=== PATIENT | male | born 1970 | race Two or more races ===

== ENCOUNTER 2024-09-11 20:06 | Inpatient (IN) | payer MEDICAID, SELFPAY ==
[2024-09-11] VITALS (7 sets, daily range): BP systolic 101–142; BP diastolic 73–79; PULSE 87–130; RESP 15–25; TEMP 37.1–39.6; O2SAT 92–96; BMI 38.6
--- NOTE | 2024-09-11 20:10 | XR_ITS ---
Examination: AP chest single view Technique: AP portable semiupright chest single view Exam date and time: September 11, 2024 1007 hrs. Indications: Sepsis protocol Findings: Normal heart size The lungs are clear. The osseous structures are intact Impression: No active disease
--- NOTE | 2024-09-11 20:13 | PD.EDRME ---
Rapid Medical Screening Exam RME Arrival date/time: 09/11/24 20:06 CC: Tachypneic tachycardic warm to touch patient's had a UTI for the last 4 to 5 days with hematuria. Tachypnea tachycardia reported in the vital signs by EMS. Review of the literature show patient started on Levaquin. Patient is awake alert oriented
[2024-09-11] MEDS: SODIUM CHLORIDE 0.9% 1000 ML 1,000 ML 999 ML IV (20:40)
[2024-09-11 21:10] LABS: Lactate (Lactic Acid) 1.9 mMol/L (0.4-2.0)
[2024-09-11] MEDS: ACETAMINOPHEN 500 MG TABLET 1000 MG PO (21:11)
[2024-09-11 21:29] LABS: Collection Type, Urine Clean Catch
[2024-09-11 21:37] LABS: Basophils # (Auto) 0.1 Thou/mm3 (0.0-0.2); Basophils % (Auto) 0 % (0-2.5); Eosinophils # (Auto) 0.1 Thou/mm3 (0.0-0.5); Eosinophils % (Auto) 1 % (0-10); Hematocrit 34.7 % (41.0-53.0); Hemoglobin 11.8 g/dL (13.5-16.0); Immature Granulocytes % (Auto) 1 % (0-0); Immature Granulocytes Auto 0.15 Thou/mm3 (0.00-0.00); Lymphocytes # (Auto) 1.8 Thou/mm3 (1.0-4.8); Lymphocytes % (Auto) 14 % (10-50); Mean Corpuscular Hemoglobin 30.2 pg (25.0-35.0); Mean Corpuscular Volume 89 fL (80-100); Monocytes # (Auto) 1.2 Thou/mm3 (0.0-0.8); Monocytes % (Auto) 9 % (0-12); Neutrophils # (Auto) 10.1 Thou/mm3 (1.8-7.7); Neutrophils % (Auto) 75 % (37-80); Nucleated Red Blood Cell % 0 /100 WBC (0); Platelet Count 247 Thou/mm3 (140-440); RDW Standard Deviation 45.2 fL (35.1-43.9); Red Blood Count 3.91 Miln/mm3 (4.50-5.90); White Blood Count 13.5 Thou/mm3 (3.8-10.6)
[2024-09-11 21:45] LABS: Bacteria,Urine Rare; Bilirubin,Urine Negative (Negative); Blood,Urine 1+ (Negative); Budding Yeast,Urine Present; Clarity,Urine Turbid (Clear/Hazy); Color,Urine Lt-Yellow (Lt Yel-Yel); Glucose, Urine Negative (Negative); Ketones,Urine Negative (Negative); Leukocyte Esterase,Urine Positive (Negative); Nitrite,Urine Negative (Negative); Protein,Urine Trace (Neg - Trace); RBC,Urine 1 /hpf (0-3); Specific Gravity,Urine 1.011 (1.001-1.035); Squamous Epithelial Cell,Urine 1 /hpf (0-5); Urobilinogen,Urine Negative mg/dL (0.0-1.0); WBC,Urine 123 /hpf (0-5)
[2024-09-11 21:53] LABS: INR 1.1 (0.9-1.3); Partial Thromboplastin Time 29.7 Seconds (22.0-36.0); Prothrombin Time 11.9 Seconds (9.0-12.2)
[2024-09-11 22:05] LABS: B-Type Natriuretic Peptide 94 pg/mL (0-100)
--- NOTE | 2024-09-11 22:05 | EDNOTE_ITS ---
ED General RME/HPI General Chief complaint: Fever Stated complaint: FEVER Time Seen by Provider: 09/11/24 21:56 Arrival date/time: 09/11/24 20:06 RME / HPI RME / HPI narrative: Chief complaint: 09/11/24 20:06 CC: Tachypneic tachycardic warm to touch patient's had a UTI for the last 4 to 5 days with hematuria, was started on Levaquin. Tachypnea tachycardia reported on vitals by EMS. HPI: Patient is a 54 year old male with past medical history of HFpEF (60-65% 06/2023), primary hypertension, type 2 diabetes, and chronic neuropathy who was brought to the ED from [facility] with recurrent fever spikes and chills. Patient complains of bodyaches, fevers and chills for the last 24 hours. He also has mild dysuria, and urinates in a adult diaper at baseline. Patient does not have a Roque catheter present. Allergies: NKFDA Social history: Tobacco?Use:?Denies ETOH?Use:?Denies Drug?Note:?Denies Social?History?Note:?Lives?[facility] Related Data Home Medications ?Medication ?Instructions ?Recorded ?Confirmed acetaminophen 650 mg tablet 650 mg PO Q6H PRN Pain (Scale 09/04/23 01/31/24 Score 1-3) bisacodyl 10 mg rectal suppository 10 mg AZ Q72H PRN Constipation 09/04/23 01/31/24 (Dulcolax (bisacodyl)) magnesium oxide 400 mg (241.3 mg 400 mg PO BID 09/04/23 01/31/24 magnesium) tablet (MagOx) potassium chloride 10 mEq 10 meq PO QDAY 09/04/23 01/31/24 tablet,extended release docusate sodium 100 mg capsule 100 mg PO BID 10/11/23 01/31/24 lactulose 10 gram/15 mL oral 30 ml PO BID 10/11/23 01/31/24 solution (Enulose) magnesium hydroxide 400 mg/5 mL 30 ml PO Q72H PRN Constipation 10/11/23 01/31/24 oral suspension (Milk of Magnesia) methocarbamol 500 mg tablet 500 mg PO BID 10/11/23 01/31/24 ondansetron HCl 4 mg tablet 4 mg PO Q12H PRN Nausea And 10/11/23 01/31/24 Vomiting pantoprazole 40 mg tablet,delayed 40 mg PO QDAY 10/11/23 01/31/24 release pregabalin 75 mg capsule 75 mg PO TID 10/11/23 01/31/24 amlodipine 10 mg tablet 10 mg PO QDAY 01/31/24 01/31/24 finasteride 5 mg tablet 5 mg PO QDAY 01/31/24 01/31/24 Previous Rx's ?Medication ?Instructions ?Recorded tamsulosin 0.4 mg capsule (Flomax) 0.8 mg (2 x 0.4 mg) PO QDAY 30 10/14/23 days #0 caps Allergies Allergy/AdvReac Type Severity Reaction Status Date / Time No Known Allergies Allergy Verified 01/31/24 11:43 Review of Systems Review of Systems Narrative Review of Systems: GENERAL: fevers/chills , no diaphoresis. HEENT: Denies headache or visual/hearing changes. Denies nasal discharge. NEURO: Denies unusual weakness or difficulty speaking. CARDIO: Denies chest pain or palpitations. PULM: Denies SOB, coughing, or wheezing. GI: Denies abdominal pain, N/V/C/D. Reports having BMs URO: Denies burning/itching/pain/urinary changes. ENGINE INSTALLER: Denies menstrual changes, hot flashes. MSK/EXT/SKIN: Denies joint/skeletal/muscle pain, issues/changes in upper or lower extremities, itchiness, or superficial pain. PSYCH: Cooperative, pleasant mood & affect. The rest of the review of systems is otherwise negative. ED Exam Narrative Physical exam: Constitutional Alert, oriented x3 and comfortable. Obese HEENT Vision grossly intact. Patent nares. Trachea midline. Respiratory Chest normal on inspection and clear to auscultation bilaterally. Cardiovascular S1 and S2 audible, RRR. No murmurs or carotid bruit. No gross JVD. Abdominal Soft and non tender to palpation in all quadrants. BS + Genitourinary No bladder tenderness, no flank pain. Normal to palpation. Musculoskeletal Extremities tone within normal limits. No LE edema. No sacral ulcers. Neurological CN II - XII grossly intact. Extremity motor and sensation grossly intact. Skin Warm, dry and intact. No apparent lesions. Psychiatric Patient has a good affect, is cooperative. Course Quality Measures none Orders Category Date Time Status Admit to Inpatient Status Routine Admission 09/11/24 22:31 Active Patient Condition Routine Admission 09/11/24 22:31 Ordered Activity as Tolerated Routine Care 09/11/24 22:31 Ordered Bedside Blood Glucose ACHS Care 09/11/24 22:35 Active Supply And Distribution Manager STAT Care 09/11/24 20:11 Active Continuous Pulse Oximetry STAT Care 09/11/24 20:11 Completed EKG (ED ONLY) *Do not use* NOW Care 09/11/24 20:11 Completed In and Out Catheter X1PRN Care 09/11/24 20:11 Active Insert IV NOW Care 09/11/24 20:11 Active NPO STAT Care 09/11/24 20:11 Active Notify provider NEEDED Care 09/11/24 22:31 Active Strict Intake and Output Routine Care 09/11/24 20:11 Ordered Diet Carbohydrate Consistent Diet 09/11/24 Breakfast Active EKG (ED Only) Stat Exams 09/11/24 20:11 Ordered XR chest 1V SEPSIS PROTOCOL Stat Exams 09/11/24 20:10 Completed B-Type Natriuretic Peptide Stat Lab 09/11/24 20:40 Completed Basic Metabolic Panel AM DRAW Lab 09/12/24 05:00 Ordered Basic Metabolic Panel AM DRAW Lab 09/13/24 05:00 Ordered Basic Metabolic Panel AM DRAW Lab 09/14/24 05:00 Ordered Blood Culture (Lab) Stat Lab 09/11/24 20:30 Received CBC AM DRAW Lab 09/12/24 05:00 Ordered CBC AM DRAW Lab 09/13/24 05:00 Ordered CBC AM DRAW Lab 09/14/24 05:00 Ordered CBC Stat Lab 09/11/24 20:40 Completed Comprehensive Metabolic Panel Stat Lab 09/11/24 20:40 Results Drug Screen,Urine Stat Lab 09/11/24 22:03 Ordered LDH (Lactate Dehydrogenase) Stat Lab 09/11/24 20:40 Results Lactate (Lactic Acid) Stat Lab 09/11/24 20:40 Completed Lipase Stat Lab 09/11/24 20:40 Results MG [Magnesium] AM DRAW Lab 09/12/24 05:00 Ordered Magnesium Stat Lab 09/11/24 20:40 Results Partial Thromboplastin Time Stat Lab 09/11/24 20:40 Completed Phosphorous Stat Lab 09/11/24 20:40 Results Procalcitonin Stat Lab 09/11/24 20:40 Results Prothrombin Time with INR Stat Lab 09/11/24 20:40 Completed Troponin I Stat Lab 09/11/24 20:40 Results Urinalysis Stat Lab 09/11/24 21:13 Completed Urine Culture Stat Lab 09/11/24 20:11 Ordered Acetaminophen Tab [Tylenol ES Tab] Med 09/11/24 21:05 Discontinued 1,000 mg PO X1 ONE Acetaminophen Tab [Tylenol Tab] Med 09/11/24 22:31 Active 650 mg PO Q6H PRN Dextrose 50% Syr [D50w Syringe Abboject] Med 09/11/24 22:35 Active 25 ml IV Q15MIN PRN Dextrose 50% Syr [D50w Syringe Abboject] Med 09/11/24 22:35 Active 50 ml IV Q15MIN PRN Glucagon Inj Med 09/11/24 22:35 Active 1 mg IM Q15MIN PRN Heparin Inj Med 09/12/24 06:00 Ordered 5,000 unit SC Q8HR INSULIN LISPRO (AdmeLOG) [HumaLOG] Med 09/12/24 07:30 Ordered See Protocol SC AC Magnesium Sulfate 2 GM Ivpb [Magnesium Sulfate Ivpb] Med 09/11/24 22:24 Active 2 gm in 50 ml IV X1 Sodium Chloride 0.9% 1000 ml [Ns] 1,000 ml Med 09/11/24 22:45 Ordered IV 125 mls/hr Sodium Chloride 0.9% 1000 ml [Ns] 1,000 ml Med 09/11/24 20:13 Discontinued IV 999 mls/hr cefTRIAXone/D5w 1gm IV premix [Rocephin/D5w 1gm IV Med 09/12/24 09:00 Ordered premix] 50 ml IV QDAY cefTRIAXone/D5w 1gm IV premix [Rocephin/D5w 1gm IV Med 09/11/24 22:19 Active premix] 50 ml IV X1 Code Status Routine Oth 09/11/24 22:31 Ordered Oxygen Delivery NOW RT 09/11/24 20:11 Active Vital Signs Vital signs: Vital Signs Temperature 98.8 F 09/11/24 20:12 Pulse Rate 87 09/11/24 20:12 Respiratory Rate 19 09/11/24 20:12 Blood Pressure 142/79 H 09/11/24 20:12 Pulse Oximetry (%) 95 09/11/24 20:12 Oxygen Delivery Method Room Air 09/11/24 20:12 [facility] Patient data External records reviewed:: [facility] previous records Clinical information provided by:: patient and family Social determinants that could affect healthcare access:: none Patient has the following chronic illnesses:: HFpEF (60-65% 06/2023), primary hypertension, type 2 diabetes, and chronic neuropathy How is presenting disease/condition affected by chronic disease/condition?: e xacerbated by Evaluation data The following diagnostics were reviewed and interpreted by me:: lab results, radiology exam(s) and EKG tracing(s) Lab and/or radiology exams considered but not ordered:: CT abdo Interpretation Summary: sepsis 2/2 UTI Medications Medications considered but not ordered:: Zosyn Medication administrations:: Medication Administration History Acetaminophen (Acetaminophen 325 Mg Tablet) 650 mg PO Q6H PRN PRN Reason: Fever >101.5 Stop: 10/11/24 22:30 Dextrose (Dextrose 50%-Water Inj 50 Ml Syringe) 25 ml IV Q15MIN PRN PRN Reason: BG 50-70 responsive npo pt Stop: 10/11/24 22:34 Dextrose (Dextrose 50%-Water Inj 50 Ml Syringe) 50 ml IV Q15MIN PRN PRN Reason: BG <50 OR BG <70 & pt unresponsive Stop: 10/11/24 22:34 Glucagon (Glucagon Inj 1 Mg Vial) 1 mg IM Q15MIN PRN PRN Reason: BG <70, and no IV access Heparin Sodium (Porcine) (Heparin Sod Inj 5000 Unit/Ml Vial) 5,000 unit SC Q8HR LG Stop: 09/26/24 05:59 Ceftriaxone Sodium/Dextrose (Rocephin/D5w 1gm Iv Premix) 50 mls @ 100 mls/hr IV X1 ONE Stop: 09/11/24 22:48 Last Admin: 09/11/24 22:27 Dose: 100 mls/hr Documented By: CB Magnesium Sulfate (Magnesium Sulfate Ivpb) 2 gm in 50 mls @ 25 mls/hr IV X1 ONE Stop: 09/12/24 00:23 Sodium Chloride (Ns) 1,000 mls @ 125 mls/hr IV .Q8H [facility] Stop: 10/11/24 22:44 Ceftriaxone Sodium/Dextrose (Rocephin/D5w 1gm Iv Premix) 50 mls @ 100 mls/hr IV QDAY [facility] Stop: 09/19/24 08:59 Insulin Human Lispro (Insulin Lispro (Admelog) 1 Unit/0.01 Ml Unit) 0 unit SC AC [facility]; Protocol Stop: 10/12/24 07:29 Discontinued Medications Acetaminophen (Acetaminophen 500 Mg Tablet) 1,000 mg PO X1 ONE Stop: 09/11/24 21:06 Last Admin: 09/11/24 21:11 Dose: 1,000 mg Documented By: EVELYN Sodium Chloride (Ns) 1,000 mls @ 999 mls/hr IV .Q1H1M ONE Stop: 09/11/24 21:13 Last Infusion: 09/11/24 21:45 Dose: Infused Documented By: Admin: 09/11/24 20:40 Dose: 999 mls/hr Documented By: EVELYN Continue Consultations Consultation(s) initiated? (list below): No Consultation #1 (Physician, Specialty, Details): None Diagnosis Differential Diagnosis ED Complaint MDM: Diverticulitis Most likely diagnosis given after review of the tests above:: Acute UTI Admission Indicated Admission indicated?: indicated Explain why admission is indicated or not indicated:: Sepsis Admission Request Was there a request for admission?: Yes Admission Attestation Admission request attestation: Discussed case with Dr Rodriguez from Hospitalist service regarding admission. Discussed patients ED course, exam findings, labs, and radiology results. The Hospitalist [agrees] to accept the patient for admission. Disposition Plan Disposition Plan: Admit Medical Decision Making MDM Narrative MDM Narrative: Patient is a 54 year old male who presented with fever and chills and diffuse body aches. Found to have sepsis. UA grossly positive for UTI. Given Rocephin 1g x1 in the ED. Differential Diagnosis Differential Diagnosis: Diverticulitis Lab Data 09/11/24 20:40 09/11/24 20:40 Labs: Lab Results 09/11/24 09/11/24 Range/Units 20:40 21:13 WBC 13.5 H (3.8-10.6) Thou/mm3 RBC 3.91 L (4.50-5.90) Miln/mm3 Hgb 11.8 L (13.5-16.0) g/dL Hct 34.7 L (41.0-53.0) % MCV 89 (80-100) fL MCH 30.2 (25.0-35.0) pg MCHC 34.0 (31.0-37.0) g/dl RDW Std Deviation 45.2 H (35.1-43.9) fL Plt Count 247 (140-440) Thou/mm3 Neut % (Auto) 75 (37-80) % Lymph % (Auto) 14 (10-50) % [place] % (Auto) 9 (0-12) % Eos % (Auto) 1 (0-10) % Baso % (Auto) 0 (0-2.5) % Neut # (Auto) 10.1 H (1.8-7.7) Thou/mm3 Lymph # (Auto) 1.8 (1.0-4.8) Thou/mm3 [place] # (Auto) 1.2 H (0.0-0.8) Thou/mm3 Eos # (Auto) 0.1 (0.0-0.5) Thou/mm3 Baso # (Auto) 0.1 (0.0-0.2) Thou/mm3 Immature Gran # (Auto) 0.15 H (0.00-0.00) Thou/mm3 Absolute Nucleated RBC 0.00 (0.00-0.00) Thou/mm3 Immature Gran % 1 H (0-0) % Nucleated RBC % 0 (0) /100 WBC PT 11.9 (9.0-12.2) Seconds INR 1.1 (0.9-1.3) APTT 29.7 (22.0-36.0) Seconds Sodium 139 (136-145) mMol/L Potassium 4.2 (3.4-5.1) mMol/L Chloride 105 (98-107) mMol/L Carbon Dioxide 24.0 (20.0-31.0) mMol/L Anion Gap 10 (7-16) BUN 34 H (9-23) mg/dL Creatinine 2.6 H (0.6-1.3) mg/dL Estim Creat Clear Calc 48.5 L (>60) mL/min eGFR 28 L (60 - ) See Note BUN/Creatinine Ratio 13 (12-20) Ratio Glucose 202 H (74-106) mg/dL Calculated Osmolality 291 (275-295) Lactic Acid 1.9 (0.4-2.0) mMol/L Calcium 9.8 (8.3-10.6) mg/dL Corrected Calcium 9.8 (8.5-10.1) mg/dL Phosphorus 2.5 (2.4-5.1) mg/dL Magnesium 1.5 L (1.6-2.6) mg/dL Total Bilirubin 0.8 (0.3-1.2) mg/dL AST 15 (0-34) U/L ALT 32 (10-49) U/L Alkaline Phosphatase 89 (46-116) U/L Troponin I < 0.020 (0.0-0.045) ng/mL B-Natriuretic Peptide 94 (0-100) pg/mL Total Protein 7.5 (5.7-8.2) gm/dL Albumin 4.4 (3.5-5.0) gm/dL Globulin 3.1 (2.3-3.5) gm/dL Albumin/Globulin Ratio 1.4 (1.2-2.2) Lipase 48 (12-53) U/L Procalcitonin 0.41 (0.0-0.49) ng/ml Ur Collection Type Clean Catch Urine Color Lt-Yellow (Lt Yel-Yel) Urine Clarity Turbid A (Clear/Hazy) Urine pH 6.0 (5.0-7.0) Ur Specific [place] 1.011 (1.001-1.035) Urine Protein Trace (Neg - Trace) Urine Glucose (UA) Negative (Negative) Urine Ketones Negative (Negative) Urine Blood 1+ A (Negative) Urine Nitrite Negative (Negative) Urine Bilirubin Negative (Negative) Urine Urobilinogen (Auto) Negative (0.0-1.0) mg/dL Ur Leukocyte Esterase Positive (Negative) Urine RBC 1 (0-3) /hpf Urine WBC 123 H (0-5) /hpf Ur Squamous Epith Cells 1 (0-5) /hpf Urine Bacteria Rare (None) Urine Yeast (Budding) Present A (None) Discharge Plan Plan Patient Disposition: Admit Acute Care w/in Hospital Patient condition on transfer: Stable Prescriptions/Referrals Prescriptions/Med Rec: No Action amlodipine 10 mg tablet 10 mg PO QDAY finasteride 5 mg tablet 5 mg PO QDAY potassium chloride 10 mEq Tablet Extended Release 10 meq PO QDAY acetaminophen 650 mg Tablet 650 mg PO Q6H PRN (Reason: Pain (Scale Score 1-3)) magnesium oxide [MagOx] 400 mg (241.3 mg magnesium) Tablet 400 mg PO BID bisacodyl [Dulcolax (bisacodyl)] 10 mg Suppository 10 mg [place] Q72H PRN (Reason: Constipation) docusate sodium 100 mg Capsule 100 mg PO BID Rx Instructions: HOLD FOR LOOSE STOOLS methocarbamol 500 mg tablet 500 mg PO BID ondansetron HCl 4 mg tablet 4 mg PO Q12H PRN (Reason: Nausea And Vomiting) magnesium hydroxide [Milk of Magnesia] 400 mg/5 mL Suspension 30 ml PO Q72H PRN (Reason: Constipation) pantoprazole 40 mg tablet,delayed release (DR/EC) 40 mg PO QDAY lactulose [Enulose] 10 gram/15 mL solution 30 ml PO BID pregabalin 75 mg capsule 75 mg PO TID tamsulosin [Flomax] 0.4 mg Capsule 0.8 mg PO QDAY 30 Days Qty: 0 0RF Referrals: Itzel Ge MD [Primary Care Provider] - In 1 week Problem List Clinical Impression: UTI (urinary tract infection), Sepsis Patient/Caregiver Discharge Instructions Print Language: Mohawk Stand Alone Forms: Caitie Award Info., Patient Portal Info Letter
[2024-09-11 22:18] LABS: Alanine Aminotransferase 32 U/L (10-49); Albumin, Serum 4.4 gm/dL (3.5-5.0); Albumin/Globulin Ratio 1.4 (1.2-2.2); Alkaline Phosphatase 89 U/L (46-116); Anion Gap 10 (7-16); Aspartate Amino Transferase 15 U/L (0-34); BUN/Creatinine Ratio 13 Ratio (12-20); Bilirubin,Total 0.8 mg/dL (0.3-1.2); Blood Urea Nitrogen 34 mg/dL (9-23); Calcium 9.8 mg/dL (8.3-10.6); Calcium (Corrected) 9.8 mg/dL (8.5-10.1); Chloride 105 mMol/L (98-107); Creatinine (Component) 2.6 mg/dL (0.6-1.3); Estimated Creatinine Clearance 48.5 mL/min (>60); Globulin 3.1 gm/dL (2.3-3.5); Glucose 202 mg/dL (74-106); Lipase 48 U/L (12-53); Magnesium 1.5 mg/dL (1.6-2.6); Osmolality,Calculated 291 (275-295); Phosphorous 2.5 mg/dL (2.4-5.1); Potassium 4.2 mMol/L (3.4-5.1); Procalcitonin 0.41 ng/ml (0.0-0.49); Sodium 139 mMol/L (136-145); Total Protein 7.5 gm/dL (5.7-8.2); Troponin I < 0.020 ng/mL (0.0-0.045); eGFR 28 See Note
[2024-09-11] MEDS: cefTRIAXone/D5w 1gm IV premix 50 ML IV (22:27)
--- NOTE | 2024-09-11 22:27 | PD.EVENT ---
Documentation for date of: 09/11/24 Event Note Event Note: A 54-year-old male presented to the ER with the chief complaint of fever. The patient reports experiencing high fevers up to 103?F since yesterday, which persisted despite attempts to reduce the temperature, with the lowest recorded at 101?F. He has a history of a urinary tract infection diagnosed last week, but treatment with Levofloxacin was delayed until today due to procedural delays at the convalescent home and insurance issues. The patient also reports urinary frequency without burning or abdominal pain. Associated symptoms include fatigue and poor appetite but no cough, shortness of breath, or diarrhea. Notably, he has chronic issues with urinary incontinence attributed to prior spinal injuries. The patient has a medical history of heart failure with preserved ejection fraction (60?65% as of June 2023), hypertension, type 2 diabetes, and chronic neuropathy. 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 He is non-ambulatory, last walking over a year ago, and awaiting spinal surgery. His last hospitalization was in September for urinary bleeding related to catheter placement. In the Emergency Department, the patient was febrile at 103.3?F, tachycardic (HR 113), tachypneic (RR 22), and hypertensive (BP 142/79). Initial labs showed elevated white blood cell count (13.5), elevated creatinine (2.6), and turbid urine with significant leukocyturia (WBC 123). Imaging via chest X-ray showed no active disease. The patient was diagnosed with sepsis secondary to a UTI. Interventions included initiation of IV ceftriaxone and hydration. A sepsis alert was activated, and the patient was admitted for further management.
--- NOTE | 2024-09-11 22:36 | ESHP_ITS ---
Documentation for date of: 09/11/24 HPI History of Present Illness Chief complaint: Fever and burning micturition History of present illness: A 54-year-old male with past medical history of obesity, hypertension, type 2 diabetes mellitus, CKD, HFpEF [60 to 65%, 07/21], severe spinal stenosis of L5- S1, lower back injury causing chronic myeloradiculopathy, BPH living in [facility] presented to the hospital with a chief complaints of hematuria, burning micturition and fever since 1 week. Patient was apparently normal 1 week back, at baseline patient had decreased bladder sensations and occasionally passes urine without knowledge which could be likely due to myelopathy. Patient noted melvin blood soaking his previous and noted bleeding from the penis. Since then, patient noted burning micturition, foul smelling and also dark color of the urine. Symptoms resolved 3 days later. Since 2 days before the day of admission, patient noted febrile episodes. He reported those complaints to the staff working in the facility and they had sent urine for analysis but did not get report and later patient was started on levofloxacin 250 on the day of admission to the ED. ED Course: -Initial vitals were blood pressure 142/79 mmHg, pulse rate 87 bpm, respiratory rate 19/min, temperature 98.8 ?F, SpO2 85% with room air -Labs significant for WBC 13.5, Hb 11.8, BUN 34, creatinine 2.6, glucose 202, magnesium 1.5, procalcitonin 0.41. Urinalysis showed turbid, 1+ blood, 1.3 WBC -Chest x-ray did not show any patchy infiltrates. -In the ED, patient was given magnesium, IV fluids, ceftriaxone. In the ED patient was found to have a temperature of 103.3 ?F -Patient was admitted for sepsis secondary to urinary tract infection Past medical history: Obesity, hypertension, type 2 diabetes mellitus, CKD, HFpEF, severe spinal stenosis, lower back injury causing myeloradiculopathy, BPH Past surgical history: Right knee arthroscopy Social history: Denies smoking, alcohol, other illicit drug abuse as of now Review of Systems Review of Systems Systems Reviewed: All systems reviewed, normal except as documented Exam Vital Signs Temp Pulse Resp BP Pulse Ox O2 Del Method 103.3 F H 129 H 25 H 101/78 95 Room Air 09/11/24 21:11 09/11/24 20:41 09/11/24 20:41 09/11/24 20:41 09/11/24 20:41 09/11/24 20:41 Narrative Exam General: Awake. Obese. HEENT: Normocephalic, atraumatic, mucous membranes moist. Heart: Regular rate and rhythm, no murmurs. Lungs: Clear to auscultation with no wheezing or crackles. Abdomen: Soft, nondistended, nontender, positive bowel sounds. ?No guarding or rebound tenderness. Neurologic: Alert and oriented x3, no gross neurological deficit, and patient able to move all 4 extremities. Extremities: No edema. Skin: No rash or ecchymoses. Results: Labs 09/11/24 20:40 09/11/24 20:40 Labs: Short CBC 09/11/24 Range/Units 20:40 WBC 13.5 H (3.8-10.6) Thou/mm3 Hgb 11.8 L (13.5-16.0) g/dL Hct 34.7 L (41.0-53.0) % Plt Count 247 (140-440) Thou/mm3 BMP 09/11/24 20:40 Sodium 139 Potassium 4.2 Chloride 105 Carbon Dioxide 24.0 BUN 34 H Creatinine 2.6 H Glucose 202 H Calcium 9.8 Cardiac Enzymes 09/11/24 Range/Units 20:40 Troponin I < 0.020 (0.0-0.045) ng/mL Liver Function 09/11/24 Range/Units 20:40 Total Bilirubin 0.8 (0.3-1.2) mg/dL AST 15 (0-34) U/L ALT 32 (10-49) U/L Alkaline Phosphatase 89 (46-116) U/L Albumin 4.4 (3.5-5.0) gm/dL Urine 09/11/24 Range/Units 21:13 Urine Color Lt-Yellow (Lt Yel-Yel) Urine Clarity Turbid A (Clear/Hazy) Urine pH 6.0 (5.0-7.0) Ur Specific [place] 1.011 (1.001-1.035) Urine Protein Trace (Neg - Trace) Urine Glucose (UA) Negative (Negative) Quality Measures Quality Measures VTE prophylaxis Medications Home Medications and Allergies Home Medications ?Medication ?Instructions ?Recorded ?Confirmed ?Type acetaminophen 650 mg tablet 650 mg PO Q6H PRN Pain (Scale 09/04/23 01/31/24 History Score 1-3) bisacodyl 10 mg rectal suppository 10 mg ME Q72H PRN Constipation 09/04/23 01/31/24 History (Dulcolax (bisacodyl)) magnesium oxide 400 mg (241.3 mg 400 mg PO BID 09/04/23 09/12/24 History magnesium) tablet (MagOx) potassium chloride 10 mEq 10 meq PO QDAY 09/04/23 01/31/24 History tablet,extended release docusate sodium 100 mg capsule 100 mg PO BID 10/11/23 01/31/24 History lactulose 10 gram/15 mL oral 30 ml PO BID 10/11/23 01/31/24 History solution (Enulose) magnesium hydroxide 400 mg/5 mL 30 ml PO Q72H PRN Constipation 10/11/23 01/31/24 History oral suspension (Milk of Magnesia) methocarbamol 500 mg tablet 500 mg PO BID 10/11/23 01/31/24 History ondansetron HCl 4 mg tablet 4 mg PO Q12H PRN Nausea And 10/11/23 09/12/24 History Vomiting pantoprazole 40 mg tablet,delayed 40 mg PO QDAY 10/11/23 09/12/24 History release pregabalin 75 mg capsule 150 mg PO BID 10/11/23 09/12/24 History amlodipine 10 mg tablet 10 mg PO QDAY 01/31/24 01/31/24 History finasteride 5 mg tablet 5 mg PO QDAY 01/31/24 09/12/24 History clonidine HCl 0.1 mg tablet 0.1 mg Q12HR PRN HTN 09/12/24 09/12/24 History losartan 100 mg tablet 100 mg PO QDAY 09/12/24 09/12/24 History Allergies Allergy/AdvReac Type Severity Reaction Status Date / Time No Known Allergies Allergy Verified 01/31/24 11:43 Visit Medications Acetaminophen (Acetaminophen 325 Mg Tablet) 650 mg PO Q6H PRN PRN Reason: Fever >101.5 Stop: 10/11/24 22:30 Dextrose (Dextrose 50%-Water Inj 50 Ml Syringe) 25 ml IV Q15MIN PRN PRN Reason: BG 50-70 responsive npo pt Stop: 10/11/24 22:34 Dextrose (Dextrose 50%-Water Inj 50 Ml Syringe) 50 ml IV Q15MIN PRN PRN Reason: BG <50 OR BG <70 & pt unresponsive Stop: 10/11/24 22:34 Glucagon (Glucagon Inj 1 Mg Vial) 1 mg IM Q15MIN PRN PRN Reason: BG <70, and no IV access Heparin Sodium (Porcine) (Heparin Sod Inj 5000 Unit/Ml Vial) 5,000 unit SC Q8HR [facility] Stop: 09/26/24 05:59 Ceftriaxone Sodium/Dextrose (Rocephin/D5w 1gm Iv Premix) 50 mls @ 100 mls/hr IV X1 ONE Stop: 09/11/24 22:48 Last Admin: 09/11/24 22:27 Dose: 100 mls/hr Magnesium Sulfate (Magnesium Sulfate Ivpb) 2 gm in 50 mls @ 25 mls/hr IV X1 ONE Stop: 09/12/24 00:23 Sodium Chloride (Ns) 1,000 mls @ 125 mls/hr IV .Q8H [facility] Stop: 10/11/24 22:44 Ceftriaxone Sodium/Dextrose (Rocephin/D5w 1gm Iv Premix) 50 mls @ 100 mls/hr IV QDAY [facility] Stop: 09/19/24 08:59 Insulin Human Lispro (Insulin Lispro (Admelog) 1 Unit/0.01 Ml Unit) 0 unit SC [facility]; Protocol Stop: 10/12/24 07:29 Discontinued Medications Acetaminophen (Acetaminophen 500 Mg Tablet) 1,000 mg PO X1 ONE Stop: 09/11/24 21:06 Last Admin: 09/11/24 21:11 Dose: 1,000 mg Sodium Chloride (Ns) 1,000 mls @ 999 mls/hr IV .Q1H1M ONE Stop: 09/11/24 21:13 Last Infusion: 09/11/24 21:45 Dose: Infused Assessment & Plan Plan A 54-year-old male with past medical history of obesity, hypertension, type 2 diabetes mellitus, CKD, HFpEF [60 to 65%, 07/21], severe spinal stenosis of L5- S1, lower back injury causing chronic myeloradiculopathy, BPH living in [facility] presented to the hospital with a chief complaints of hematuria, burning micturition and fever since 1 week and admitted for sepsis secondary to urinary tract infection. # Sepsis # Secondary to urinary tract infection # Urinary retention secondary to myeloradiculopathy and spinal canal stenosis # Diabetes mellitus -Admitted to the hospital with the complaints of fever, burning micturition and hematuria since 1 week -Received a dose of levofloxacin 250 Mg before coming to the hospital -Symptoms of burning micturition and hematuria subsided within 3 days -Temperature of 103.3 ?F/ WBC 13.5 + urinary tract infection, fits into sepsis criteria -But patient clinically does not appear to be in sepsis. -Urine analysis showed turbid, 1+ blood, 133 WBC with rare urine bacteria. -Received 1000 mL NS in the ED Plan -Blood and urine cultures were sent -Started on ceftriaxone 1 g IV daily -Started on IV fluids NS at 125 mL/h # Acute on chronic kidney disease, stage IIIa -Baseline creatinine is 1.6 in 03/21 -Creatinine at the time of admission is 2.6 -Likely secondary to the UTI -Received 1 L of fluid bolus in the ED Plan -Started on IV fluids NS at 125 mL/h -Monitor renal functions -Avoid nephrotoxic medications and renally dose medications -Consult nephrology if needed # History of diabetes mellitus -Last HbA1c is 7.6 in 02/2023 -No glucosuria noted on urine analysis and glucose is 202 and CMP. -Patient is not on any medication as of now -Repeat HbA1c is ordered # History of hypertension -Blood pressures are within normal limits since the time of admission -Medication reconciliation is ordered -Resume antihypertensives if needed. # Hypomagnesemia -Magnesium is 1.5 at the time of admission -2 g of IV magnesium is given -Replete as needed. # BPH -Patient is following with Dr. Brown -Recommended to continue finasteride and tamsulosin, In and Out catheter -Will resume medications # Severe spinal stenosis # Chronic neuropathy -Patient is using pregabalin and baclofen -Trying to get surgery Hospital Maintenance: Dispo: medsurg DVT ppx: heparin GI ppx: Pantoprazole Diet: carb consistent IV lines: peripheral Code status: Full Patient plan of care was discussed with the attending physician, Dr. Michael Juares, PGY1 Attending Provider Attestation/Addendum Pt was evaluated and plan formulated together with the housestaff team. I have reviewed the residents note above and agree with most of its content. Please refer to the residents note for additional details.
[2024-09-11] MEDS: Magnesium Sulfate 2 GM Ivpb 2 GM/50 ML BAG IV (22:38)
[2024-09-11] MEDS: SODIUM CHLORIDE 0.9% 1000 ML 1,000 ML 125 ML IV (22:41)
[2024-09-11 22:54] LABS: LDH (Lactate Dehydrogenase) 165 U/L (120-246)
[2024-09-12 00:19] VITALS: BP 104/70; PULSE 103; RESP 18; TEMP 37.2; O2SAT 94; BMI 38.7
[2024-09-12] MEDS: ACETAMINOPHEN 325 MG TABLET 650 MG PO ×3 (03:49→18:58)
[2024-09-12 04:00] VITALS: BP 135/82; PULSE 86; RESP 18; TEMP 37.6; O2SAT 93
[2024-09-12] MEDS: HEPARIN SOD INJ 5000 UNIT/ML VIAL SC ×3 (05:14→21:06)
--- NOTE | 2024-09-12 05:21 | PC.NURSE ---
Patient refusing to put yellow gown on. he wants it off
[2024-09-12 05:32] LABS: Basophils # (Auto) 0.1 Thou/mm3 (0.0-0.2); Basophils % (Auto) 0 % (0-2.5); Eosinophils # (Auto) 0.1 Thou/mm3 (0.0-0.5); Eosinophils % (Auto) 0 % (0-10); Hematocrit 31.9 % (41.0-53.0); Hemoglobin 10.7 g/dL (13.5-16.0); Immature Granulocytes % (Auto) 1 % (0-0); Immature Granulocytes Auto 0.18 Thou/mm3 (0.00-0.00); Lymphocytes # (Auto) 1.5 Thou/mm3 (1.0-4.8); Lymphocytes % (Auto) 10 % (10-50); Mean Corpuscular HGB Conc 33.5 g/dl (31.0-37.0); Mean Corpuscular Hemoglobin 30.5 pg (25.0-35.0); Mean Corpuscular Volume 91 fL (80-100); Monocytes # (Auto) 1.4 Thou/mm3 (0.0-0.8); Monocytes % (Auto) 9 % (0-12); Neutrophils # (Auto) 11.6 Thou/mm3 (1.8-7.7); Neutrophils % (Auto) 79 % (37-80); Nucleated Red Blood Cell % 0 /100 WBC (0); Platelet Count 202 Thou/mm3 (140-440); RDW Standard Deviation 46.8 fL (35.1-43.9); Red Blood Count 3.51 Miln/mm3 (4.50-5.90); White Blood Count 14.7 Thou/mm3 (3.8-10.6)
[2024-09-12 06:02] LABS: Glucose Estimated Average 260 mg/dL (80-131); Hemoglobin A1C 10.7 % Hgb (4.8-6.0)
[2024-09-12 06:08] LABS: Anion Gap 10 (7-16); BUN/Creatinine Ratio 15 Ratio (12-20); Blood Urea Nitrogen 35 mg/dL (9-23); Calcium 9.2 mg/dL (8.3-10.6); Carbon Dioxide 21.4 mMol/L (20.0-31.0); Chloride 105 mMol/L (98-107); Creatinine (Component) 2.4 mg/dL (0.6-1.3); Estimated Creatinine Clearance 52.5 mL/min (>60); Glucose 209 mg/dL (74-106); Magnesium 1.8 mg/dL (1.6-2.6); Osmolality,Calculated 285 (275-295); Sodium 136 mMol/L (136-145); eGFR 31 See Note
--- NOTE | 2024-09-12 07:48 | PD.RESPRO ---
Documentation for date of: 09/12/24 Subjective Subjective Interval history: No overnight events. Reports improvement in symptoms including dysuria, denies hematuria. Tolerating oral intake. Denies new symptoms or worsening of symptoms. Denies fever, chills, headaches, chest pain, sob, cough, GI or urinary symptoms. Exam Vital Signs Temp Pulse Resp BP Pulse Ox O2 Del Method 99.6 F 86 18 135/82 H 93 L Room Air 09/12/24 04:00 09/12/24 04:00 09/12/24 04:00 09/12/24 04:00 09/12/24 04:00 09/12/24 04:00 Narrative Exam GENERAL Obese, normal appearing middle-aged male. NAD HEENT NCAT.?REBECCA. Oral mucosa is moist. Patent Nares NECK Supple, nontender, no thyromegaly, no meningismus, no JVD, no step offs CHEST RRR, no m/g/r CTAB, no w/r/r. Symmetrical chest rise. No intercostal subcostal retraction Atraumatic, nontender, no crepitus, symmetrical expansion. ABDOMEN Soft, flat, nontender. No guarding/rebound tenderness/masses. Bowel sounds presents EXTREMITIES Nontender, no cyanosis, no edema No edema/cyanosis.? SKIN Warm and dry, no jaundice/rashes. NEUROMUSCULAR No lumbar or midline, no CVA, no paraspinal muscle spasm or tenderness. Moves all 4 extremities well, with full ROM and good CSM. SANDY x4, CN II-XII grossly intact. No focal neurologic deficits. PSYCHIATRY Normal mood and affect, cooperative, no SI or HI or hallucinations. Objective Labs 09/13/24 05:30 09/13/24 05:30 Labs: Laboratory Results - last 24 hr 09/11/24 09/11/24 09/12/24 20:40 21:13 04:31 WBC 13.5 H 14.7 H RBC 3.91 L 3.51 L Hgb 11.8 L 10.7 L Hct 34.7 L 31.9 L MCV 89 91 MCH 30.2 30.5 MCHC 34.0 33.5 RDW Std Deviation 45.2 H 46.8 H Plt Count 247 202 D Neut % (Auto) 75 79 Lymph % (Auto) 14 10 Clay % (Auto) 9 9 Eos % (Auto) 1 0 Baso % (Auto) 0 0 Neut # (Auto) 10.1 H 11.6 H Lymph # (Auto) 1.8 1.5 Clay # (Auto) 1.2 H 1.4 H Eos # (Auto) 0.1 0.1 Baso # (Auto) 0.1 0.1 Immature Gran # (Auto) 0.15 H 0.18 H Absolute Nucleated RBC 0.00 0.00 Immature Gran % 1 H 1 H Nucleated RBC % 0 0 PT 11.9 INR 1.1 APTT 29.7 Sodium 139 136 Potassium 4.2 4.0 Chloride 105 105 Carbon Dioxide 24.0 21.4 Anion Gap 10 10 BUN 34 H 35 H Creatinine 2.6 H 2.4 H Estim Creat Clear Calc 48.5 L 52.5 L eGFR 28 L 31 L BUN/Creatinine Ratio 13 15 Glucose [address] Glu mg/dL 260 H Hemoglobin A1c 10.7 H Calculated Osmolality 291 285 Lactic Acid 1.9 Calcium 9.8 9.2 Corrected Calcium 9.8 Phosphorus 2.5 Magnesium 1.5 L 1.8 Total Bilirubin 0.8 AST 15 ALT 32 Alkaline Phosphatase 89 Lactate Dehydrogenase 165 Troponin I < 0.020 B-Natriuretic Peptide 94 Total Protein 7.5 Albumin 4.4 Globulin 3.1 Albumin/Globulin Ratio 1.4 Lipase 48 Procalcitonin 0.41 Ur Collection Type Clean Catch Urine Color Lt-Yellow Urine Clarity Turbid A Urine pH 6.0 Ur Specific [place] 1.011 Urine Protein Trace Urine Glucose (UA) Negative Urine Ketones Negative Urine Blood 1+ A Urine Nitrite Negative Urine Bilirubin Negative Urine Urobilinogen (Auto) Negative Ur Leukocyte Esterase Positive Urine RBC 1 Urine WBC 123 H Ur Squamous Epith Cells 1 Urine Bacteria Rare Urine Yeast (Budding) Present A Quality Measures Quality Measures VTE prophylaxis Assessment & Plan Assessment Current Active Medications: Generic Name Dose Route Start Last Admin Trade Name Freq PRN Reason Stop Dose Admin Acetaminophen 650 mg 09/12/24 03:30 09/12/24 03:49 Acetaminophen 325 Mg Tablet PO 10/11/24 22:30 650 mg Q6H PRN Administration Fever >100.4 or Pain Dextrose 25 ml 09/11/24 22:35 Dextrose 50%-Water Inj 50 Ml Syringe IV 10/11/24 22:34 Q15MIN PRN BG 50-70 responsive npo pt Dextrose 50 ml 09/11/24 22:35 Dextrose 50%-Water Inj 50 Ml Syringe IV 10/11/24 22:34 Q15MIN PRN BG <50 OR BG <70 & pt unresponsive Finasteride 5 mg 09/12/24 09:00 Finasteride 5 Mg Tablet PO 10/12/24 08:59 QDAY [facility] Glucagon 1 mg 09/11/24 22:35 Glucagon Inj 1 Mg Vial IM Q15MIN PRN BG <70, and no IV access Heparin Sodium (Porcine) 5,000 unit 09/12/24 06:00 09/12/24 05:14 Heparin Sod Inj 5000 Unit/Ml Vial SC 09/26/24 05:59 5,000 unit Q8HR LG Administration Sodium Chloride 1,000 mls @ 125 mls/hr 09/11/24 22:45 09/11/24 22:41 Ns IV 10/11/24 22:44 125 mls/hr .Q8H LG Administration Ceftriaxone Sodium/Dextrose 50 mls @ 100 mls/hr 09/12/24 09:00 Rocephin/D5w 1gm Iv Premix IV 09/19/24 08:59 QDAY [facility] Insulin Glargine 14 unit 09/12/24 21:00 Insulin Glargine (Lantus) 5 Unit/0.05 Ml (Per 5 Units) SC 10/12/24 20:59 HS [facility] Insulin Human Lispro 0 unit 09/12/24 07:30 Insulin Lispro (Admelog) 1 Unit/0.01 Ml Unit SC 10/12/24 07:29 AC [facility] Protocol Pantoprazole Sodium 40 mg 09/12/24 09:00 Pantoprazole 40 Mg Tablet PO 10/12/24 08:59 QDAY [facility] Pregabalin 150 mg 09/12/24 09:00 Pregabalin 75 Mg Capsule PO 10/12/24 08:59 BID [facility] Tamsulosin HCl 0.4 mg 09/12/24 09:00 Tamsulosin Hcl 0.4 Mg Capsule PO 10/12/24 08:59 QDAY [facility] Plan In summary: 54-year-old male with HTN, T2DM, CKD, PAF, severe spinal stenosis, chronic low back pain, radiculopathy, BPH, presenting with hematuria and burning micturition x 1 week. Admitted for sepsis UTI. Continued on ANTIBIOTICS. 3/4 Sepsis in settings of Acute UTI Presenting with fever, poor nutrition, hematuria x 1 week. Met 3 out of 4 sepsis criteria with fever, tachycardia, leukocytosis and a UTI source of infection as seen on UA, with organ failure i.e. MILE. Adequately fluid resuscitated. Symptoms overall improving. No hematuria today. ? Continue CEFTRIAXONE daily (09/12 to [present]) ? Pending cultures MILE on CKD stage IIIa Baseline creatinine 1.6, GFR 40?50. Admission creatinine 2.6. Likely in settings of UTI. Overall improving with fluid resuscitation. ? Renally dose meds, avoid overdiuresis and NEPHROTOXINS ? Daily CMP ? Treating underlying cause as above ? Consider nephrology consults T2DM A1c 10.7, GLUCOSE 238 today ? On INSULIN GLARGINE 10 units and sliding scale Hypertension Home meds CLONIDINE 0.1 mg, LOSARTAN 100 mg Currently normotensive. ? Resume home meds as indicated Hypomagnesemia Magnesium is 1.5 at the time of admission ? Repleted ? Daily CMP BPH Follows up with Dr. Brown ? Resume home FINASTERIDE 5 mg ? Resumed home TAMSULOSIN 0.8 mg daily Severe spinal stenosis Chronic neuropathy ? Resumed home PREGABALIN 150 mg BID ? Resumed home BACLOFEN 10 mg BID GERD ? Continue home PROTONIX 40 mg daily Chronic anemia Takes FERROUS SULFATE 325 daily Hemoglobin 10.7 ? Will resume iron after resolution of infection Health maintenance Diet: CHO consistent GI prophylaxis: PROTONIX DVT prophylaxis: HEPARIN subcu Antibiotics: CEFTRIAXONE CODE STATUS: Full code Disposition: Pending MILE improvement Patient case was discussed with attending, Dr. Warren Recinos MD and senior residents Dr. Ugalde and Dr. Ahuja. Nikia Concepcion DO PGYI Senior Resident Attestation: The patient is a 54-year-old male with significant past medical history of type 2 diabetes mellitus, CKD stage III, hypertension, radiculopathy 2/2 severe spinal stenosis, BPH presented with chief complaint of hematuria and burning micturition for past 1 week was admitted for further management of sepsis secondary to UTI, with endorgan failure MILE on CKD stage III. This morning, his vitals were stable, white count 14.7 with creatinine of 2.4 and GFR 31, blood sugar 2 9 and A1c 10.7. We will continue the patient on ceftriaxone, blood cultures pending, MILE likely prerenal as fluid resuscitation is improving patient's creatinine. Started on 10 units of glargine at night, as currently normotensive we will continue to monitor his blood pressure and resume his home medications as needed. Home medications resumed for his chronic conditions patient will be discharged back to [facility] once stable. I discussed with and supervised the internet marketing executive physician involved in the care of this patient. I personally saw and examined the patient and discussed the assessment and plan with the entire medicine team, including my attending. I agree with the assessment and plan as documented above. Ulisses Ahuja MD PGY2 Internal Medicine
[2024-09-12 08:00] VITALS: BP 127/77; PULSE 90; RESP 17; TEMP 36.7; O2SAT 95
[2024-09-12] MEDS: SODIUM CHLORIDE 0.9% 1000 ML 1,000 ML 125 ML IV ×2 (08:26→16:50)
[2024-09-12] MEDS: INSULIN LISPRO (AdmeLOG) 1 UNIT/0.01 ML UNIT SC ×3 (08:27→16:50)
[2024-09-12] MEDS: POTASSIUM CHLORIDE 10% 20 MEQ/15 ML UDC 10 MEQ PO (08:29)
[2024-09-12] MEDS: FINASTERIDE 5 MG TABLET PO (08:30)
[2024-09-12] MEDS: PANTOPRAZOLE 40 MG TABLET PO (08:30)
[2024-09-12] MEDS: cefTRIAXone/D5w 1gm IV premix 50 ML IV (08:30)
[2024-09-12] MEDS: DOCUSATE SOD 100 MG CAPSULE PO (08:30)
[2024-09-12] MEDS: PREGABALIN 75 MG CAPSULE 150 MG PO ×2 (08:30→20:47)
[2024-09-12] MEDS: BACLOFEN 10 MG TABLET PO ×2 (08:31→20:47)
[2024-09-12] MEDS: TAMSULOSIN HCL 0.4 MG CAPSULE PO (08:31)
[2024-09-12] MEDS: MAGNESIUM OXIDE 400 MG TABLET PO ×2 (08:42→20:47)
--- NOTE | 2024-09-12 10:49 | PC.SS ---
Patient is alert/oriented. He resides at [facility] intermediate and has been at facility over a year. Patient states he will be returning when medically stable. Patient admitted for sepsis. Patient states his mother, Renu, is the alt medical decision maker. Patient will need transportation assistance. PCP: Dr. Ge.
[2024-09-12 12:00] VITALS: BP 114/74; PULSE 92; RESP 18; TEMP 37.2; O2SAT 98
[2024-09-12 13:16] VITALS: BMI 38.5
[2024-09-12] MEDS: ASCORBIC ACID 250 MG TABLET 500 MG PO ×2 (14:02→21:06)
--- NOTE | 2024-09-12 15:00 | PC.DIETICIAN ---
1. Recommend diet modification to consistent carb LOW w/ 2-3 oz extra protein added per meal. Pt educated on dietary management (A1C=10.7). Topics discussed: identification of carbs, general concepts of carb counting, my plate, A1C, benefits of CGM. Written material (my plate, planning healthy meals, A1C) were provided. Pt showed good understanding of recommendations; time for questions was allowed and doubts were clarified RD to remain available as requested or needed.
[2024-09-12 16:00] VITALS: BP 120/68; PULSE 89; RESP 17; TEMP 37.1; O2SAT 98
[2024-09-12 20:00] VITALS: BP 146/84; PULSE 94; RESP 18; TEMP 38; O2SAT 93
[2024-09-12] MEDS: INSULIN GLARGINE (Lantus) 5 UNIT/0.05 ML (PER 5 UNITS) 10 UNIT SC (20:47)
[2024-09-13] VITALS: BP 145/89; PULSE 95; RESP 18; TEMP 37; O2SAT 96
[2024-09-13] MEDS: ACETAMINOPHEN 325 MG TABLET 650 MG PO ×2 (03:12→21:03)
[2024-09-13] MEDS: SODIUM CHLORIDE 0.9% 1000 ML 1,000 ML 125 ML IV ×4 (03:13→21:45)
[2024-09-13 04:00] VITALS: BP 130/85; PULSE 81; RESP 18; TEMP 37.3; O2SAT 93
[2024-09-13] MEDS: ASCORBIC ACID 250 MG TABLET 500 MG PO ×3 (05:26→21:04)
[2024-09-13] MEDS: HEPARIN SOD INJ 5000 UNIT/ML VIAL SC ×3 (05:26→21:01)
[2024-09-13 06:41] LABS: Basophils # (Auto) 0.1 Thou/mm3 (0.0-0.2); Basophils % (Auto) 1 % (0-2.5); Eosinophils # (Auto) 0.1 Thou/mm3 (0.0-0.5); Eosinophils % (Auto) 1 % (0-10); Hematocrit 30.4 % (41.0-53.0); Hemoglobin 10.1 g/dL (13.5-16.0); Immature Granulocytes % (Auto) 1 % (0-0); Immature Granulocytes Auto 0.06 Thou/mm3 (0.00-0.00); Lymphocytes # (Auto) 1.4 Thou/mm3 (1.0-4.8); Lymphocytes % (Auto) 11 % (10-50); Mean Corpuscular HGB Conc 33.2 g/dl (31.0-37.0); Mean Corpuscular Hemoglobin 29.8 pg (25.0-35.0); Mean Corpuscular Volume 90 fL (80-100); Monocytes # (Auto) 1.1 Thou/mm3 (0.0-0.8); Monocytes % (Auto) 8 % (0-12); Neutrophils # (Auto) 10.3 Thou/mm3 (1.8-7.7); Neutrophils % (Auto) 79 % (37-80); Nucleated Red Blood Cell % 0 /100 WBC (0); Platelet Count 225 Thou/mm3 (140-440); RDW Standard Deviation 45.8 fL (35.1-43.9); Red Blood Count 3.39 Miln/mm3 (4.50-5.90)
[2024-09-13 06:46] LABS: Alanine Aminotransferase 20 U/L (10-49); Albumin, Serum 4.2 gm/dL (3.5-5.0); Albumin/Globulin Ratio 1.6 (1.2-2.2); Alkaline Phosphatase 75 U/L (46-116); Anion Gap 9 (7-16); Aspartate Amino Transferase < 10 U/L (0-34); BUN/Creatinine Ratio 14 Ratio (12-20); Bilirubin,Total 0.6 mg/dL (0.3-1.2); Blood Urea Nitrogen 35 mg/dL (9-23); Carbon Dioxide 19.3 mMol/L (20.0-31.0); Chloride 107 mMol/L (98-107); Creatinine (Component) 2.5 mg/dL (0.6-1.3); Estimated Creatinine Clearance 50.5 mL/min (>60); Globulin 2.7 gm/dL (2.3-3.5); Glucose 174 mg/dL (74-106); Magnesium 1.6 mg/dL (1.6-2.6); Osmolality,Calculated 282 (275-295); Phosphorous 3.2 mg/dL (2.4-5.1); Potassium 3.8 mMol/L (3.4-5.1); Sodium 135 mMol/L (136-145); Total Protein 6.9 gm/dL (5.7-8.2); eGFR 30 See Note
[2024-09-13] MEDS: INSULIN LISPRO (AdmeLOG) 1 UNIT/0.01 ML UNIT SC ×3 (07:51→17:32)
[2024-09-13 08:00] VITALS: BP 150/93; PULSE 96; RESP 18; TEMP 36.2; O2SAT 96
[2024-09-13] MEDS: MAGNESIUM OXIDE 400 MG TABLET PO ×2 (08:33→21:04)
[2024-09-13] MEDS: TAMSULOSIN HCL 0.4 MG CAPSULE PO (08:33)
[2024-09-13] MEDS: BACLOFEN 10 MG TABLET PO ×2 (09:35→21:04)
[2024-09-13] MEDS: DOCUSATE SOD 100 MG CAPSULE PO ×2 (09:35→21:03)
[2024-09-13] MEDS: POTASSIUM CHLORIDE 10% 20 MEQ/15 ML UDC 10 MEQ PO (09:36)
[2024-09-13] MEDS: PANTOPRAZOLE 40 MG TABLET PO (09:36)
[2024-09-13] MEDS: cefTRIAXone/D5w 1gm IV premix 50 ML IV (09:36)
[2024-09-13] MEDS: FINASTERIDE 5 MG TABLET PO (09:36)
[2024-09-13] MEDS: PREGABALIN 75 MG CAPSULE 150 MG PO ×2 (09:36→21:03)
[2024-09-13] MEDS: SODIUM CHLORIDE 0.9% 250 ML 250 ML 999 ML IV (10:02)
[2024-09-13 12:00] VITALS: BP 123/75; PULSE 101; RESP 20; TEMP 37.2; O2SAT 97
--- NOTE | 2024-09-13 15:08 | ESPR_ITS ---
Documentation for date of: 09/13/24 Subjective Subjective Interval history: No acute overnight events. Patient doing well today. Tolerating oral intake without nausea or vomiting. Having regular bowel movements. Urinating regularly without dysuria or hematuria. Denies fever, chills, headaches, chest pain, sob, cough, GI or urinary symptoms. Exam Vital Signs Temp Pulse Resp BP Pulse Ox O2 Del Method 98.9 F 101 H 20 123/75 97 Room Air 09/13/24 12:00 09/13/24 12:00 09/13/24 12:00 09/13/24 12:00 09/13/24 12:00 09/13/24 12:00 Narrative Exam GENERAL * Obese, normal appearing middle-aged male. NAD HEENT * NCAT.?REBECCA. Oral mucosa is moist. Patent Nares NECK * Supple, nontender, no thyromegaly, no meningismus, no JVD, no step offs CHEST * RRR, no m/g/r * CTAB, no w/r/r. Symmetrical chest rise. No intercostal subcostal retraction * Atraumatic, nontender, no crepitus, symmetrical expansion. ABDOMEN * Soft, flat, nontender. No guarding/rebound tenderness/masses. * Bowel sounds presents EXTREMITIES * Nontender, no cyanosis, no edema * No edema/cyanosis.? SKIN * Warm and dry, no jaundice/rashes. NEUROMUSCULAR * No lumbar or midline, no CVA, no paraspinal muscle spasm or tenderness. * Moves all 4 extremities well, with full ROM and good CSM. * SANDY x4, CN II-XII grossly intact. * No focal neurologic deficits. PSYCHIATRY * Normal mood and affect, cooperative, no SI or HI or hallucinations. Objective Labs 09/13/24 05:30 09/13/24 05:30 Labs: Laboratory Results - last 24 hr 09/13/24 05:30 WBC 13.0 H RBC 3.39 L Hgb 10.1 L Hct 30.4 L MCV 90 MCH 29.8 MCHC 33.2 RDW Std Deviation 45.8 H Plt Count 225 Neut % (Auto) 79 Lymph % (Auto) 11 [place] % (Auto) 8 Eos % (Auto) 1 Baso % (Auto) 1 Neut # (Auto) 10.3 H Lymph # (Auto) 1.4 [place] # (Auto) 1.1 H Eos # (Auto) 0.1 Baso # (Auto) 0.1 Immature Gran # (Auto) 0.06 H Absolute Nucleated RBC 0.00 Immature Gran % 1 H Nucleated RBC % 0 Sodium 135 L Potassium 3.8 Chloride 107 Carbon Dioxide 19.3 L Anion Gap 9 BUN 35 H Creatinine 2.5 H Estim Creat Clear Calc 50.5 L eGFR 30 L BUN/Creatinine Ratio 14 Glucose 174 H Calculated Osmolality 282 Calcium 9.0 Corrected Calcium 9.0 Phosphorus 3.2 Magnesium 1.6 Total Bilirubin 0.6 AST < 10 ALT 20 Alkaline Phosphatase 75 Total Protein 6.9 Albumin 4.2 Globulin 2.7 Albumin/Globulin Ratio 1.6 Quality Measures Quality Measures VTE prophylaxis Assessment & Plan Assessment Current Active Medications: Generic Name Dose Route Start Last Admin Trade Name Freq PRN Reason Stop Dose Admin Acetaminophen 650 mg 09/12/24 03:30 09/13/24 03:12 Acetaminophen 325 Mg Tablet PO 10/11/24 22:30 650 mg Q6H PRN Administration Fever >100.4 or Pain Ascorbic Acid 500 mg 09/12/24 14:00 09/13/24 05:26 Ascorbic Acid 250 Mg Tablet PO 10/12/24 13:59 500 mg TID LG Administration Baclofen 10 mg 09/12/24 09:00 09/13/24 09:35 Baclofen 10 Mg Tablet PO 10/12/24 08:59 10 mg BID LG Administration Bisacodyl 10 mg 09/12/24 07:48 Bisacodyl 10 Mg Supp AR 10/12/24 07:47 Q72H PRN Constipation Protocol Dextrose 25 ml 09/11/24 22:35 Dextrose 50%-Water Inj 50 Ml Syringe IV 10/11/24 22:34 Q15MIN PRN BG 50-70 responsive npo pt Dextrose 50 ml 09/11/24 22:35 Dextrose 50%-Water Inj 50 Ml Syringe IV 10/11/24 22:34 Q15MIN PRN BG <50 OR BG <70 & pt unresponsive Docusate Sodium 100 mg 09/12/24 09:00 09/13/24 09:35 Docusate Sod 100 Mg Capsule PO 10/12/24 08:59 100 mg BID LG Administration Protocol Finasteride 5 mg 09/12/24 09:00 09/13/24 09:36 Finasteride 5 Mg Tablet PO 10/12/24 08:59 5 mg QDAY LG Administration Glucagon 1 mg 09/11/24 22:35 Glucagon Inj 1 Mg Vial IM Q15MIN PRN BG <70, and no IV access Heparin Sodium (Porcine) 5,000 unit 09/12/24 06:00 09/13/24 05:26 Heparin Sod Inj 5000 Unit/Ml Vial SC 09/26/24 05:59 5,000 unit Q8HR LG Administration Sodium Chloride 1,000 mls @ 125 mls/hr 09/11/24 22:45 09/13/24 10:14 Ns IV 10/11/24 22:44 125 mls/hr .Q8H LG Administration Ceftriaxone Sodium/Dextrose 50 mls @ 100 mls/hr 09/12/24 09:00 09/13/24 09:36 Rocephin/D5w 1gm Iv Premix IV 09/19/24 08:59 100 mls/hr QDAY LG Administration Insulin Glargine 10 unit 09/12/24 21:00 09/12/24 20:47 Insulin Glargine (Lantus) 5 Unit/0.05 Ml (Per 5 Units) SC 10/12/24 20:59 10 unit HS LG Administration Insulin Human Lispro 0 unit 09/12/24 07:30 09/13/24 12:03 Insulin Lispro (Admelog) 1 Unit/0.01 Ml Unit SC 10/12/24 07:29 2 unit AC LG Administration Protocol Magnesium Hydroxide 30 ml 09/12/24 07:48 Milk Of Magnesia Susp 30 Ml Udc PO 10/12/24 07:47 Q72H PRN Constipation Protocol Magnesium Oxide 400 mg 09/12/24 09:00 09/13/24 08:33 Magnesium Oxide 400 Mg Tablet PO 10/12/24 08:59 400 mg BID LG Administration Home Medication- 1 applicatio 09/12/24 07:48 Please Speak With TOPICAL Patient Caregiver To Q4H PRN Have Rx Brought To [facility] Ondansetron HCl 4 mg 09/12/24 07:48 Ondansetron Odt 4 Mg Tabrap PO 10/12/24 07:47 Q12H PRN Nausea And Vomiting Protocol Pantoprazole Sodium 40 mg 09/12/24 09:00 09/13/24 09:36 Pantoprazole 40 Mg Tablet PO 10/12/24 08:59 40 mg QDAY LG Administration Potassium Chloride 10 meq 09/12/24 09:00 09/13/24 09:36 Potassium Chloride 10% 20 Meq/15 Ml Udc PO 10/12/24 08:59 10 meq QDAY LG Administration Pregabalin 150 mg 09/12/24 09:00 09/13/24 09:36 Pregabalin 75 Mg Capsule PO 10/12/24 08:59 150 mg BID LG Administration Tamsulosin HCl 0.4 mg 09/12/24 09:00 09/13/24 08:33 Tamsulosin Hcl 0.4 Mg Capsule PO 10/12/24 08:59 0.4 mg QDAY LG Administration Plan In summary: 54-year-old male with HTN, T2DM, CKD, PAF, severe spinal stenosis, chronic low back pain, radiculopathy, BPH, presenting with hematuria and burning micturition x 1 week. Admitted for sepsis UTI. Continued on ANTIBIOTICS. Currently asymptomatic. We have consulted his ultrasonographer, Dr العلي for management of MILE. Pending recommendation 3/4 Sepsis in settings of Acute UTI Presenting with fever, poor nutrition, hematuria x 1 week. Met 3 out of 4 sepsis criteria with fever, tachycardia, leukocytosis and a UTI source of infection as seen on UA, with organ failure i.e. MILE. Adequately fluid resuscitated. Symptoms overall improving. ? Continue CEFTRIAXONE daily (09/12 to [present]) ? Pending cultures MILE on CKD stage IIIa Baseline creatinine 1.6, GFR 40?50. CR distally around 2.5-2.5. Possibly related to UTI. Dr. العلي stated he has history of urinary obstruction. She recommended a bilateral renal ultrasound which was ordered. ? Renally dose meds, avoid overdiuresis and NEPHROTOXINS ? Daily CMP ? Treating underlying cause as above ? Pending neurology recommendations ? Pending bilateral renal ultrasound T2DM A1c 10.7, GLUCOSE 174 today ? On INSULIN GLARGINE 10 units and sliding scale Hypertension Home meds CLONIDINE 0.1 mg, LOSARTAN 100 mg Currently normotensive. ? Resume home meds as indicated Hypomagnesemia Magnesium is 1.5 at the time of admission ? Repleted ? Daily CMP BPH Follows up with Dr. Brown ? Resume home FINASTERIDE 5 mg ? Resumed home TAMSULOSIN 0.8 mg daily Severe spinal stenosis Chronic neuropathy ? Resumed home PREGABALIN 150 mg BID ? Resumed home BACLOFEN 10 mg BID GERD ? Continue home PROTONIX 40 mg daily Chronic anemia Takes FERROUS SULFATE 325 daily Hemoglobin 10.7 ? Will resume iron after resolution of infection Health maintenance Diet: CHO consistent GI prophylaxis: PROTONIX DVT prophylaxis: HEPARIN subcu Antibiotics: CEFTRIAXONE CODE STATUS: Full code Disposition: Pending MILE improvement Patient case was discussed with attending, Dr. Warren Recinos MD and senior residents Dr. Ugalde and Dr. Ahuja. Nikiakristi Gilmoreberkley, PGYI Senior Resident Attestation: The patient is a 54-year-old male with significant past medical history of hypertension, type 2 diabetes mellitus, CKD, severe spinal stenosis, radiculopathy, BHB who presented with hematuria and burning micturition for 1 week was found to have sepsis secondary to UTI with MILE on CKD as endorgan failure. The patient reported that he is doing much better this morning. His vitals were stable, labs revealed white count of 13.0, with creatinine increasing to 2.5. The patient's urine culture is still pending. The patient was encouraged for oral rehydration, electrolytes were repleted, continue with finasteride and tamsulosin for BPH and pregabalin 150 Mg twice daily and baclofen 10 mg twice daily for chronic neuropathy and severe spinal stenosis. The plan is to discharge the patient back to his SNF by tomorrow if his vitals and labs are stable on oral antibiotics. I discussed with and supervised the record label intern physician involved in the care of this patient. I personally saw and examined the patient and discussed the assessment and plan with the entire medicine team, including my attending. I agree with the assessment and plan as documented above. Ulisses Ahuja MD PGY2 Internal Medicine
--- NOTE | 2024-09-13 15:33 | XR_ITS ---
Examination: Retroperitoneal ultrasound, complete Technique: Multiple high resolution grayscale images of the retroperitoneum obtained, including kidneys and bladder. Exam date and time:September 13, 2024 at 1626 hours INDICATIONS: Diagnosis acute renal insufficiency on laboratory examination this week FINDINGS: Right kidney 15 x 8 x 7.6 cm renal cortex 3.1 cm Left kidney 12.7 x 8.8 x 7.7 cm cortex 1.8 cm Advanced bilateral hydronephrosis No bladder mass or bladder calculi Bladder prevoid volume 366 cc IMPRESSION: Advanced bilateral hydronephrosis
[2024-09-13 16:00] VITALS: BP 141/104; PULSE 71; RESP 18; TEMP 36.2; O2SAT 95
[2024-09-13] MEDS: SENNA TABLET 1 TAB PO (18:35)
[2024-09-13 20:00] VITALS: BP 142/99; PULSE 79; RESP 18; TEMP 37.7; O2SAT 100
[2024-09-13] MEDS: INSULIN GLARGINE (Lantus) 5 UNIT/0.05 ML (PER 5 UNITS) 10 UNIT SC (21:00)
[2024-09-14] VITALS: BP 144/99; PULSE 92; RESP 17; TEMP 36.5; O2SAT 95
[2024-09-14 04:00] VITALS: BP 143/88; PULSE 84; RESP 17; TEMP 37.7; O2SAT 96
[2024-09-14] MEDS: ASCORBIC ACID 250 MG TABLET 500 MG PO ×2 (05:22→14:12)
[2024-09-14] MEDS: HEPARIN SOD INJ 5000 UNIT/ML VIAL SC ×2 (05:22→14:12)
[2024-09-14 05:57] LABS: Basophils # (Auto) 0.1 Thou/mm3 (0.0-0.2); Basophils % (Auto) 1 % (0-2.5); Eosinophils # (Auto) 0.2 Thou/mm3 (0.0-0.5); Eosinophils % (Auto) 2 % (0-10); Hematocrit 28.1 % (41.0-53.0); Hemoglobin 9.3 g/dL (13.5-16.0); Immature Granulocytes % (Auto) 1 % (0-0); Immature Granulocytes Auto 0.06 Thou/mm3 (0.00-0.00); Lymphocytes # (Auto) 1.1 Thou/mm3 (1.0-4.8); Lymphocytes % (Auto) 12 % (10-50); Mean Corpuscular HGB Conc 33.1 g/dl (31.0-37.0); Mean Corpuscular Hemoglobin 29.9 pg (25.0-35.0); Mean Corpuscular Volume 90 fL (80-100); Monocytes # (Auto) 0.9 Thou/mm3 (0.0-0.8); Monocytes % (Auto) 10 % (0-12); Neutrophils % (Auto) 76 % (37-80); Nucleated Red Blood Cell % 0 /100 WBC (0); Platelet Count 199 Thou/mm3 (140-440); RDW Standard Deviation 44.6 fL (35.1-43.9); Red Blood Count 3.11 Miln/mm3 (4.50-5.90); White Blood Count 9.3 Thou/mm3 (3.8-10.6)
[2024-09-14 06:38] LABS: Alanine Aminotransferase 23 U/L (10-49); Albumin, Serum 4.1 gm/dL (3.5-5.0); Albumin/Globulin Ratio 1.5 (1.2-2.2); Alkaline Phosphatase 90 U/L (46-116); Anion Gap 11 (7-16); Aspartate Amino Transferase 13 U/L (0-34); BUN/Creatinine Ratio 12 Ratio (12-20); Bilirubin,Total 0.4 mg/dL (0.3-1.2); Blood Urea Nitrogen 30 mg/dL (9-23); Chloride 106 mMol/L (98-107); Creatinine (Component) 2.6 mg/dL (0.6-1.3); Estimated Creatinine Clearance 48.6 mL/min (>60); Globulin 2.7 gm/dL (2.3-3.5); Glucose 179 mg/dL (74-106); Magnesium 1.5 mg/dL (1.6-2.6); Osmolality,Calculated 284 (275-295); Phosphorous 2.7 mg/dL (2.4-5.1); Potassium 4.1 mMol/L (3.4-5.1); Sodium 137 mMol/L (136-145); Total Protein 6.8 gm/dL (5.7-8.2); eGFR 28 See Note
[2024-09-14 08:00] VITALS: BP 141/80; PULSE 100; RESP 18; TEMP 37; O2SAT 95
[2024-09-14] MEDS: INSULIN LISPRO (AdmeLOG) 1 UNIT/0.01 ML UNIT SC ×3 (08:27→17:08)
[2024-09-14] MEDS: cefTRIAXone/D5w 1gm IV premix 50 ML IV (08:29)
[2024-09-14] MEDS: PANTOPRAZOLE 40 MG TABLET PO (08:29)
[2024-09-14] MEDS: PREGABALIN 75 MG CAPSULE 150 MG PO (08:29)
[2024-09-14] MEDS: TAMSULOSIN HCL 0.4 MG CAPSULE PO (08:29)
[2024-09-14] MEDS: POTASSIUM CHLORIDE 10% 20 MEQ/15 ML UDC 10 MEQ PO (08:29)
[2024-09-14] MEDS: BACLOFEN 10 MG TABLET PO (08:29)
[2024-09-14] MEDS: MAGNESIUM OXIDE 400 MG TABLET PO (08:29)
[2024-09-14] MEDS: DOCUSATE SOD 100 MG CAPSULE PO (08:29)
[2024-09-14] MEDS: FINASTERIDE 5 MG TABLET PO (08:30)
[2024-09-14] MEDS: Magnesium Sulfate 4 GM Ivpb 4 GM/50 ML BAG IV (09:25)
--- NOTE | 2024-09-14 11:46 | PC.SS ---
Follow up note: Patient to d/c back to facility today. Facility aware. SS contacted [facility] with a ref# [id number] with a gurney request from [facility]. Tentative time for pickle processor at 4p.m. Nursing aware.
[2024-09-14 12:00] VITALS: BP 144/75; PULSE 64; RESP 17; TEMP 36.9; O2SAT 97
--- NOTE | 2024-09-14 13:30 | ESCONSULT_ITS ---
RE: SILVERIO VIRGEN : 1970 DATE OF CONSULTATION: 09/14/2024 REASON FOR REFERRAL: Acute on chronic kidney disease from obstructive uropathy. REFERRING PHYSICIAN: Hospitalist. HISTORY OF PRESENT ILLNESS: This patient is a 54-year-old -[place] gentleman with past medical history significant for type 2 diabetes, hypertension, L5 ganglionic compression, neurogenic bladder with stage III to IV CKD secondary to obstructive uropathy who came to the hospital on 09/11/2024 with severe dysuria. The patient was found with UTI and was started on IV antibiotics. The patient's creatinine last time I saw him was 2.29. He also has a history of indwelling Roque catheter in the past due to his obstructive uropathy. He developed bladder ulcers, which were cauterized by Dr. Loyola sometime last year. He underwent slow bladder training of his urinary bladder and they were able to remove his Roque catheter. The patient when he presented has a creatinine of 2.5, which is a little bit worse than how he used to be. Bilateral kidney ultrasound was done again which revealed advanced hydronephrosis. The patient was offered indwelling Roque catheter, but he refused. I also offered percutaneous bilateral nephrostomy tubes, but he also refused and would like to wait until he gets his back surgery in [place]. He said that he maintains good urine output despite having neurogenic bladder. The patient seems to have stopped seeing Dr. Loyola as well. PAST MEDICAL HISTORY: Type 2 diabetes, neuropathy, stage IIIB CKD, BPH, and neurogenic bladder. SURGICAL HISTORY: Cystoscopy, foot surgeries. ALLERGIES: NO KNOWN DRUG ALLERGIES. CURRENT MEDICATIONS: 1. Acetaminophen. 2. Ascorbic acid. 3. Baclofen 10 mg b.i.d. 4. Bisacodyl. 5. Ceftriaxone 1 g IV daily. 6. Finasteride. 7. Lispro sliding scale. PHYSICAL EXAMINATION: GENERAL: He is awake, alert, oriented. VITAL SIGNS: Blood pressure of 144/79, heart rate of 64, and temperature 98.4. HEENT: Anicteric sclerae, normocephalic. NECK: Supple. No JVD. CHEST AND LUNGS: Symmetrical expansion. Clear breath sounds. HEART: Without murmur. ABDOMEN: Soft. EXTREMITIES: Slight edema in both lower extremities. LABORATORY DATA: Hemoglobin 9.3, WBC 9200, and platelet count 199,000. Sodium 137, potassium 4.1, chloride 106, CO2 of 20, BUN 30, creatinine 2.6, and glucose 179. ASSESSMENT: 1. Stage IIIB chronic kidney disease, most likely secondary to obstructive uropathy. 2. Anemia of chronic kidney disease. 3. Urinary tract infection. 4. Type 2 diabetes with neuropathy and nephropathy. 5. History of L5 ganglionic compression being seen by a neurosurgeon in [place]. 6. Hypertension. PLAN: At this point, the patient can be discharged as the patient has refused to have indwelling Roque catheter or percutaneous nephrostomy tube placements. The patient would like to wait until he gets his back surgery in the hope that it will improve his neurogenic bladder. The patient will be seen in my clinic with pre-visit routine labs. Thank you for allowing me to participate in medical care of your patient. DT: 12:21:44 TT: 13:29:00 Ref: [id number] - TID: [id number] [facility]
--- NOTE | 2024-09-14 13:52 | ESDS_ITS ---
Planned Discharge Date 09/14/24 DS: Providers Provider Date of admission: 09/11/24 22:31 Primary care physician: Itzel Ge MD Admitting Provider: Gwyn Rodriguez MD Attending Provider on Admission: Warren Recinos MD Consults: 09/12/24 08:41 Referral Registered Dietitian Routine Comment: 09/13/24 10:07 Consult to Nephrology Routine Comment: MILE, CKD 3A, UTI Consulting Provider: Maryan Li Attending Provider on DC: Dr. Warren Recinos MD Discharging Provider: Dr. Warren Recinos MD DS: Diagnosis Problem List Completed Was Problem List Reviewed/Reconciled?: Yes Hospital Course Hospital Course Hospital course: This is a 54-year-old male with HTN, T2DM, CKD, PAF, severe spinal stenosis, chronic low back pain, radiculopathy, BPH, presenting with hematuria and burning micturition x 1 week. Admitted for sepsis UTI and IMLE. Continued on ANTIBIOTICS, urine culture and 48. Blood cultures have been negative. Symptoms resolved prior to discharge. He has a history of CKD and obstructive uropathy, on chronic Roque catheter which was removed recently. Dr. العلي, primary packaging line operator, with consulted for MILE who recommended discharge on Roque catheter and close follow- up with her outpatient. Patient was stable to discharge to SNF. PATIENT INSTRUCTIONS: Follow-up with your PCP within 1 week of discharge. Follow-up with nephrology, Dr العلي, within 1 week regarding MILE and CKD. Continue using Roque catheter until you see nephrology. You have been started on Cephalexin 500 twice daily for 5 days. Continue on all other medicines as prescribed before. Recommended to return back to emergency department if your symptoms persist or do not improve. ADMISSION DIAGNOSES: 3/4 Sepsis in settings of Acute UTI MILE on CKD stage IIIa T2DM Hypertension Hypomagnesemia BPH Severe spinal stenosis Chronic neuropathy GERD Chronic anemia Patient case was discussed with attending, Dr. Warren Recinos MD and senior residents Dr. Ugalde and Dr. Ahuja. Nikia Concepcion, DO PGy1 Senior Resident Attestation: I discussed with and supervised the internet application developer physician involved in the care of this patient. I personally saw and examined the patient and discussed the assessment and plan with the entire medicine team, including my attending. I agree with the discharge plan as documented above. Ulisses Ahuja MD PGY2 Internal Medicine Time Spent with Patient Time attestation: Total time spent providing and/or coordinating discharge services: Greater than 35 minutes. Exam Vital Signs Temp Pulse Resp BP Pulse Ox O2 Del Method 98.4 F 64 17 144/75 H 97 Room Air 09/14/24 12:00 09/14/24 12:00 09/14/24 12:09/14/24 12:00 09/14/24 12:09/14/24 12:00 Narrative Exam GENERAL * Obese, normal appearing middle-aged male. NAD HEENT * NCAT.?REBECCA. Oral mucosa is moist. Patent Nares NECK * Supple, nontender, no thyromegaly, no meningismus, no JVD, no step offs CHEST * RRR, no m/g/r * CTAB, no w/r/r. Symmetrical chest rise. No intercostal subcostal retraction * Atraumatic, nontender, no crepitus, symmetrical expansion. ABDOMEN * Soft, flat, nontender. No guarding/rebound tenderness/masses. * Bowel sounds presents EXTREMITIES * Nontender, no cyanosis, no edema * No edema/cyanosis.? SKIN * Warm and dry, no jaundice/rashes. NEUROMUSCULAR * No lumbar or midline, no CVA, no paraspinal muscle spasm or tenderness. * Moves all 4 extremities well, with full ROM and good CSM. * SANDY x4, CN II-XII grossly intact. * No focal neurologic deficits. PSYCHIATRY * Normal mood and affect, cooperative, no SI or HI or hallucinations. Discharge Plan Plan Patient Disposition: Xfer Skilled Nsg Fac (SNF) Disposition Comment[facility] Patient condition on transfer: Stable Care Plan Goals: Follow-up with your PCP within 1 week of discharge. Follow-up with nephrology, Dr العلي, within 1 week regarding MILE and CKD. Continue using Roque catheter until you see nephrology. You have been started on Cephalexin 500 twice daily for 5 days. Continue on all other medicines as prescribed before. Recommended to return back to emergency department if your symptoms persist or do not improve. Prescriptions/Referrals Prescriptions/Med Rec: New cephalexin 500 mg capsule 500 mg PO BID Qty: 10 0RF Continued finasteride 5 mg tablet 5 mg PO QDAY clonidine HCl 0.1 mg tablet 0.1 mg Q12HR PRN (Reason: HTN) losartan 100 mg tablet 100 mg PO QDAY potassium chloride 10 mEq tablet extended release 10 meq PO QDAY baclofen 10 mg tablet 20 mg ACHS baclofen 10 mg tablet 10 mg BID Rx Instructions: one tab in the morning and one tab in the afternoon insulin lispro 100 unit/mL insulin pen See Rx Instructions .ROUTE .COMPLEX Rx Instructions: Inject as per sliding scale: 0-150= 0 151-200= 2 units 201-250: 4 units 251-300= 6 units 301-350 = 8 units 351-400 = 10 units 401+ = 12 units. Administer dose and Notify ascorbic acid (vitamin C) [Vitamin C] 500 mg Tablet 500 mg PO TID ferrous sulfate 325 mg (65 mg iron) Tablet 325 mg PO QDAY Fleet Enema 19-7 gram/118 mL Enema 118 ml NM Q72H PRN (Reason: Constipation) methyl salicylate-menthol Cream 1 applic TOPICAL Q4H PRN (Reason: MUSCLE SPASMS) acetaminophen 650 mg Tablet 650 mg PO Q6H PRN (Reason: Pain (Scale Score 1-3)) magnesium oxide [MagOx] 400 mg (241.3 mg magnesium) Tablet 400 mg PO BID bisacodyl [Dulcolax (bisacodyl)] 10 mg Suppository 10 mg NM Q72H PRN (Reason: Constipation) docusate sodium 100 mg Capsule 100 mg PO BID Rx Instructions: HOLD FOR LOOSE STOOLS ondansetron HCl 4 mg tablet 4 mg PO Q12H PRN (Reason: Nausea And Vomiting) magnesium hydroxide [Milk of Magnesia] 400 mg/5 mL Suspension 30 ml PO Q72H PRN (Reason: Constipation) pantoprazole 40 mg tablet,delayed release (DR/EC) 40 mg PO QDAY pregabalin 75 mg capsule 150 mg PO BID tamsulosin [Flomax] 0.4 mg Capsule 0.8 mg PO QDAY 30 Days Qty: 0 0RF Referrals: Severiano,Chantelle G, MD [Physician] - Itzel Ge MD [Primary Care Provider] - Patient/Caregiver Discharge Instructions Discharge Activity: activity as tolerated Other Discharge Activity Instructions:: Follow-up with your PCP within 1 week of discharge. Follow-up with nephrology, Dr العلي, within 1 week regarding MILE and CKD. Continue using Roque catheter until you see nephrology. You have been started on Cephalexin 500 twice daily for 5 days. Continue on all other medicines as prescribed before. Recommended to return back to emergency department if your symptoms persist or do not improve. Education Materials: Hematuria: Possible Causes, Urinary Tract Infections in Men, Communicating About Pain Print Language: Maltese Stand Alone Forms: Caitie Award Info., Patient Portal Info Letter Discharge Order Discharge Orders: Discharge (Routine); Ordered 09/14/24 Ordered By: Ulisses Ahuja Quality Discharge Quality Measures VTE prophylaxis
[2024-09-14 16:00] VITALS: BP 138/78; PULSE 96; RESP 17; TEMP 36.8; O2SAT 94
--- NOTE | 2024-09-14 18:45 | PC.NURSE ---
gave report to [facility] eduardo magallon, all questions answered
== END 2024-09-14 18:43 | disposition skilled nursing facility (03) | DRG 720 ==
LOC: SERX 22:40 → SERHOLD 22:49 → S3SX 09-12 00:19
PROVIDERS: Registered Nurse General Practice; Admitting Provider Internal Medicine; Emergency Provider Student in an Organized Health Care Education/Training Program; PCP Hospitalist; Visit Provider Internal Medicine
DX: A41.9 Sepsis, unspecified organism (principal); N39.0 Urinary tract infection, site not specified; I50.32 Chronic diastolic (congestive) heart failure; N18.31 Chronic kidney disease, stage 3a; I13.0 Hypertensive heart and chronic kidney disease with heart failure and stage 1 through stage 4 chronic kidney disease, or unspecified chronic kidney disease; E11.22 Type 2 diabetes mellitus with diabetic chronic kidney disease; E66.9 Obesity, unspecified; E11.40 Type 2 diabetes mellitus with diabetic neuropathy, unspecified; M48.07 Spinal stenosis, lumbosacral region; M48.00 Spinal stenosis, site unspecified; R31.9 Hematuria, unspecified; E83.42 Hypomagnesemia; K21.9 Gastro-esophageal reflux disease without esophagitis; D63.1 Anemia in chronic kidney disease; N40.1 Benign prostatic hyperplasia with lower urinary tract symptoms; R33.8 Other retention of urine
CPT/HCPCS: 36415; 71045; 76770; 80048; 80053; 80307; 81001; 83036; 83605; 83615; 83690; 83735; 83880; 84100; 84145; 84484; 85025; 85610; 85730; 87040; 87081; 87086; 87400; 87811; J0696; J1643; J1815; J3475; J7030; J7050; A9270

== ENCOUNTER 2024-10-13 11:17 | Inpatient (IN) | payer MEDICAID, SELFPAY ==
[2024-10-13] VITALS (14 sets, daily range): BP systolic 96–157; BP diastolic 59–89; PULSE 84–125; RESP 18–98; TEMP 36.6–39.5; O2SAT 94–98; BMI 37.1; BMI 37.9
--- NOTE | 2024-10-13 11:27 | EKG_ITS ---
[facility] Test Date: 2024-10-13 Pat Name: SILVERIO VIRGEN Department: Room: - Gender: Male Bender Hand: : 1970 Requested By: Amanda Mora Order Number: [id number] Reading MD: Amanda Mora Measurements Intervals [place] Rate: 121 P: 11 UT: 139 QRS: 66 QRSD: 101 T: 56 QT: 361 QTc: 513 Interpretive Statements SINUS TACHYCARDIA MODERATE ST DEPRESSION [0.05+ mV ST DEPRESSION] Compared to ECG 07/04/2023 13:41:00 ST (T wave) deviation now present Sinus rhythm no longer present /store/S0/[id number].pdf
--- NOTE | 2024-10-13 11:27 | XR_ITS ---
Examination: AP chest single view Technique one AP portable semiupright chest single view Exam date and time: October 13, 2024 1144 hrs. Indications: Sepsis today. Findings: Normal heart size The lungs are clear. The osseous structures are intact Impression: No active disease
[2024-10-13 11:42] LABS: Lactate (Lactic Acid) 1.7 mMol/L (0.4-2.0)
[2024-10-13 11:43] LABS: Basophils % (Auto) 0 % (0-2.5); Eosinophils # (Auto) 0.2 Thou/mm3 (0.0-0.5); Eosinophils % (Auto) 2 % (0-10); Hematocrit 34.5 % (41.0-53.0); Hemoglobin 11.6 g/dL (13.5-16.0); Immature Granulocytes % (Auto) 1 % (0-0); Immature Granulocytes Auto 0.14 Thou/mm3 (0.00-0.00); Lymphocytes # (Auto) 1.9 Thou/mm3 (1.0-4.8); Lymphocytes % (Auto) 13 % (10-50); Mean Corpuscular HGB Conc 33.6 g/dl (31.0-37.0); Mean Corpuscular Hemoglobin 30.1 pg (25.0-35.0); Mean Corpuscular Volume 90 fL (80-100); Monocytes # (Auto) 0.8 Thou/mm3 (0.0-0.8); Monocytes % (Auto) 5 % (0-12); Neutrophils # (Auto) 11.8 Thou/mm3 (1.8-7.7); Neutrophils % (Auto) 79 % (37-80); Nucleated Red Blood Cell % 0 /100 WBC (0); Platelet Count 262 Thou/mm3 (140-440); RDW Standard Deviation 46.3 fL (35.1-43.9); Red Blood Count 3.85 Miln/mm3 (4.50-5.90); White Blood Count 14.9 Thou/mm3 (3.8-10.6)
--- NOTE | 2024-10-13 11:48 | PD.EDFEVER ---
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 Patient is having fever since earlier today severity moderate. Patient denies any cough denies any sore throat denies any chest pain but complain of abdominal discomfort. Patient denies any other complaints no medication was taken prior to arrival.. Sepsis alert was initiated right away due to fever and tachycardia Related Data Home Medications ?Medication ?Instructions ?Recorded ?Confirmed acetaminophen 650 mg tablet 650 mg PO Q6H PRN Pain (Scale 09/04/23 09/12/24 Score 1-3) bisacodyl 10 mg rectal suppository 10 mg DC Q72H PRN Constipation 09/04/23 09/12/24 (Dulcolax (bisacodyl)) magnesium oxide 400 mg (241.3 mg 400 mg PO BID 09/04/23 09/12/24 magnesium) tablet (MagOx) docusate sodium 100 mg capsule 100 mg PO BID 10/11/23 09/12/24 magnesium hydroxide 400 mg/5 mL 30 ml PO Q72H PRN Constipation 10/11/23 09/12/24 oral suspension (Milk of Magnesia) ondansetron HCl 4 mg tablet 4 mg PO Q12H PRN Nausea And 10/11/23 09/12/24 Vomiting pantoprazole 40 mg tablet,delayed 40 mg PO QDAY 10/11/23 09/12/24 release pregabalin 75 mg capsule 150 mg PO BID 10/11/23 09/12/24 finasteride 5 mg tablet 5 mg PO QDAY 01/31/24 09/12/24 ascorbic acid (vitamin C) 500 mg 500 mg PO TID 09/12/24 09/12/24 tablet (Vitamin C) baclofen 10 mg tablet 10 mg BID 09/12/24 09/12/24 baclofen 10 mg tablet 20 mg ACHS 09/12/24 09/12/24 clonidine HCl 0.1 mg tablet 0.1 mg Q12HR PRN HTN 09/12/24 09/12/24 ferrous sulfate 325 mg (65 mg 325 mg PO QDAY 09/12/24 09/12/24 iron) tablet insulin lispro 100 unit/mL See Rx Instructions .Route .COMPLEX 09/12/24 09/12/24 subcutaneous pen losartan 100 mg tablet 100 mg PO QDAY 09/12/24 09/12/24 methyl salicylate-menthol topical 1 applic topical Q4H PRN MUSCLE 09/12/24 09/12/24 cream SPASMS potassium chloride 10 mEq 10 meq PO QDAY 09/12/24 09/12/24 tablet,extended release sodium phosphates 19 gram-7 118 ml DC Q72H PRN Constipation 09/12/24 09/12/24 gram/118 mL enema (Fleet Enema) Previous Rx's ?Medication ?Instructions ?Recorded tamsulosin 0.4 mg capsule (Flomax) 0.8 mg (2 x 0.4 mg) PO QDAY 30 10/14/23 days #0 caps cephalexin 500 mg capsule 500 mg PO BID #10 caps 09/14/24 Allergies Allergy/AdvReac Type Severity Reaction Status Date / Time No Known Allergies Allergy Verified 01/31/24 11:43 Review of Systems Review of Systems Narrative Review of Systems: Review of system reviewed and within normal limits except mentioned in HPI Physical Exam Narrative Physical exam: VITAL SIGNS: Reviewed. GENERAL APPEARANCE: Alert and interactive, follows commands, no acute distress, HEAD AND FACE: Non-traumatic. ENT: PERRL, pink conjunctivitis, eyelid no trauma, Mucous membrane moist. NECK: Supple, nontender, no nuchal rigidity. CHEST: No tenderness, no crepitus, no paradoxical movement, no retractions. LUNGS: Clear, well ventilated, symmetric, no rales, no wheezing, no ronchi, no stridor, good breath sounds bilaterally. HEART: Tachycardic, no murmur, no gallops. ABDOMEN: Soft, positive bowel sounds, nondistended, no guarding, diffuse abdominal tenderness, no rebound, no masses, RECTAL: Deferred. GENITAL: Chronic Roque, urine looks cloudy and dirty looking with sediments NEUROLOGICAL: Gross motor function intact sensory function intact, Appropriate for age. MUSCULOSKELETAL: low back nontender, full range of motion. EXTREMITIES: Nontender, full range of motion. SKIN: Color pink, dry, no rash, no lacerations, no abrasions, no contusions. LYMPHATICS: Deferred. Course Quality Measures none Orders Category Date Time Status Bedside COVID-19 Antigen Test NOW Care 10/13/24 11:26 Active Bedside Influenza A&B Antigen Test NOW Care 10/13/24 11:27 Completed COVID-19 Screening Questionnaire NOW Care 10/13/24 14:46 Active Information Management Specialist STAT Care 10/13/24 11:27 Active Continuous Pulse Oximetry STAT Care 10/13/24 11:27 Completed Decision to Admit X1 Care 10/13/24 14:45 Active EKG (ED ONLY) *Do not use* NOW Care 10/13/24 11:27 Completed Roque [Urinary Catheter] NOW Care 10/13/24 11:38 Active Insert IV NOW Care 10/13/24 11:27 Active NPO STAT Care 10/13/24 11:27 Active Strict Intake and Output Routine Care 10/13/24 11:[address] abdomen pelvis wo con Stat Exams 10/13/24 11:51 Completed EKG (ED Only) Stat Exams 10/13/24 11:27 Draft XR chest 1V SEPSIS PROTOCOL Stat Exams 10/13/24 11:27 Completed B-Type Natriuretic Peptide Stat Lab 10/13/24 11:34 Completed Blood Culture (Lab) Stat Lab 10/13/24 11:50 Received CBC Stat Lab 10/13/24 11:34 Completed Comprehensive Metabolic Panel Stat Lab 10/13/24 11:34 Completed LDH (Lactate Dehydrogenase) Stat Lab 10/13/24 11:34 Completed Lactate (Lactic Acid) Stat Lab 10/13/24 11:34 Completed Lipase Stat Lab 10/13/24 11:34 Completed Magnesium Stat Lab 10/13/24 11:34 Completed Partial Thromboplastin Time Stat Lab 10/13/24 11:34 Completed Phosphorous Stat Lab 10/13/24 11:34 Completed Procalcitonin Stat Lab 10/13/24 11:34 Completed Prothrombin Time with INR Stat Lab 10/13/24 11:34 Completed Troponin I Stat Lab 10/13/24 11:34 Completed Urinalysis Stat Lab 10/13/24 12:15 Completed Urine Culture Stat Lab 10/13/24 12:15 Received Ibuprofen Tab [Motrin Tab] Med 10/13/24 11:47 Discontinued 800 mg PO X1 ONE Magnesium Sulfate 2 GM Ivpb [Magnesium Sulfate Ivpb] Med 10/13/24 13:11 Active 2 gm in 50 ml IV X1 Sodium Chloride 0.9% 1000 ml [Ns] 1,000 ml Med 10/13/24 11:51 Discontinued IV 999 mls/hr [id number] [Rocephin] 1,000 mg Med 10/13/24 12:45 Discontinued Sodium Chloride 0.9% (P) [Ns 0.9% (P)] 50 ml IV X1 Oxygen Delivery NOW RT 10/13/24 11:27 Active Vital Signs Vital signs: Vital Signs Temperature 103.1 F H 10/13/24 11:23 Pulse Rate 120 H 10/13/24 11:23 Respiratory Rate 20 10/13/24 11:23 Blood Pressure 157/89 H 10/13/24 11:23 Pulse Oximetry (%) 94 L 10/13/24 11:23 Oxygen Delivery Method Room Air 10/13/24 11:23 Fever MDM Narrative MDM Narrative:: 54-year-old male patient with significant history of diabetes mellitus hypertension, BPH, and chronic Roque catheter, 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 Patient is having fever since earlier today severity moderate. Patient denies any cough denies any sore throat denies any chest pain but complain of abdominal discomfort. Patient denies any other complaints no medication was taken prior to arrival.. Sepsis alert was initiated right away due to fever and tachycardia EKG as interpreted by me showed sinus tachycardia, ventricular rate of 121 bpm, DC interval 139 MS, no ST segment elevation or depression noted. Laboratory workup significant for leukocytosis 14,000. Magnesium was noted to be 1.3. Patient's creatinine was noted to be 1.9 which is his baseline. Urinalysis significant for UTI. CT scan of the abdomen and pelvis showed acute pyelonephritis with cystitis. Results discussed with the patient. Patient will be admitted for further management. Patient data External records reviewed:: None Clinical information provided by:: patient Social determinants that could affect healthcare access:: none Patient has the following chronic illnesses:: Hypertension diabetes mellitus, chronic debility, secondary to lumbar stenosis How is presenting disease/condition affected by chronic disease/condition?: exacerbated by Evaluation data The following diagnostics were reviewed and interpreted by me:: lab results, radiology exam(s) and EKG tracing(s) Lab and/or radiology exams considered but not ordered:: None Interpretation Summary: See results in MDM Medications / Prescriptions Medications or Prescriptions considered but not ordered:: None Medication administrations:: Medication Administration History Magnesium Sulfate (Magnesium Sulfate Ivpb) 2 gm in 50 mls @ 25 mls/hr IV X1 ONE Stop: 10/13/24 15:10 Last Admin: 10/13/24 13:58 Dose: 25 mls/hr Documented By: EDIS Discontinued Medications Sodium Chloride (Ns) 1,000 mls @ 999 mls/hr IV .Q1H1M ONE Stop: 10/13/24 12:51 Last Infusion: 10/13/24 14:15 Dose: Infused Documented By: Admin: 10/13/24 12:15 Dose: 999 mls/hr Documented By: EDIS Ceftriaxone Sodium 1,000 mg/ (Sodium Chloride) 50 mls @ 100 mls/hr IV X1 ONE Stop: 10/13/24 13:14 Last Infusion: 10/13/24 13:42 Dose: Infused Documented By: Admin: 10/13/24 12:59 Dose: 100 mls/hr Documented By: EDIS Ibuprofen (Ibuprofen Tab 400 Mg Tablet) 800 mg PO X1 ONE Stop: 10/13/24 11:48 Last Admin: 10/13/24 11:51 Dose: 800 mg Documented By: EDIS Ceftriaxone IV IV fluids for hydration and Motrin patient was also given magnesium sulfate Consultations Consultation(s) initiated? (list below): No Diagnosis Fever Differential Diagnosis: pyelonephritis and sepsis Most likely diagnosis given after review of the tests above:: Sepsis secondary to acute pyelonephritis Admission Indicated Admission indicated?: indicated Admission Request Was there a request for admission?: Yes Admission Attestation Admission request attestation: Discussed case with [Dr. Melendrez] from Hospitalist service regarding admission. Discussed patients ED course, exam findings, labs, and radiology results. The Hospitalist [agrees,] to accept the patient for admission. Disposition Plan Disposition Plan: Admit Discharge Plan Plan Patient Disposition: Admit Acute Care w/in Hospital Prescriptions/Referrals Prescriptions/Med Rec: No Action finasteride 5 mg tablet 5 mg PO QDAY clonidine HCl 0.1 mg tablet 0.1 mg Q12HR PRN (Reason: HTN) losartan 100 mg tablet 100 mg PO QDAY potassium chloride 10 mEq tablet extended release 10 meq PO QDAY baclofen 10 mg tablet 20 mg ACHS baclofen 10 mg tablet 10 mg BID Rx Instructions: one tab in the morning and one tab in the afternoon insulin lispro 100 unit/mL insulin pen See Rx Instructions .ROUTE .COMPLEX Rx Instructions: Inject as per sliding scale: 0-150= 0 151-200= 2 units 201-250: 4 units 251-300= 6 units 301-350 = 8 units 351-400 = 10 units 401+ = 12 units. Administer dose and Notify ascorbic acid (vitamin C) [Vitamin C] 500 mg Tablet 500 mg PO TID ferrous sulfate 325 mg (65 mg iron) Tablet 325 mg PO QDAY Fleet Enema 19-7 gram/118 mL Enema 118 ml DC Q72H PRN (Reason: Constipation) methyl salicylate-menthol Cream 1 applic TOPICAL Q4H PRN (Reason: MUSCLE SPASMS) cephalexin 500 mg capsule 500 mg PO BID Qty: 10 0RF acetaminophen 650 mg Tablet 650 mg PO Q6H PRN (Reason: Pain (Scale Score 1-3)) magnesium oxide [MagOx] 400 mg (241.3 mg magnesium) Tablet 400 mg PO BID bisacodyl [Dulcolax (bisacodyl)] 10 mg Suppository 10 mg DC Q72H PRN (Reason: Constipation) docusate sodium 100 mg Capsule 100 mg PO BID Rx Instructions: HOLD FOR LOOSE STOOLS ondansetron HCl 4 mg tablet 4 mg PO Q12H PRN (Reason: Nausea And Vomiting) magnesium hydroxide [Milk of Magnesia] 400 mg/5 mL Suspension 30 ml PO Q72H PRN (Reason: Constipation) pantoprazole 40 mg tablet,delayed release (DR/EC) 40 mg PO QDAY pregabalin 75 mg capsule 150 mg PO BID tamsulosin [Flomax] 0.4 mg Capsule 0.8 mg PO QDAY 30 Days Qty: 0 0RF Referrals: Law Hollins MD [Primary Care Provider] - In 1 week Problem List Clinical Impression: Sepsis, Pyelonephritis Patient/Caregiver Discharge Instructions Print Language: Ghanaian Stand Alone Forms: Caitie Award Info., Patient Portal Info Letter
[2024-10-13] MEDS: IBUPROFEN TAB 400 MG TABLET 800 MG PO (11:51)
--- NOTE | 2024-10-13 11:51 | XR_ITS ---
Examination: CT abdomen and pelvis without contrast. Coronal 3-D reconstructions. Sagittal 2-D reconstructions. Date and time of exam: at 1310 hrs. Indications: Fever sepsis today CTDI: vol (mGy): 15.51 DLP: (mGycm): 1160 Technique: Axial images of the abdomen have been obtained, 3 mm slice thickness Intravenous contrast material has not been administered. Low dose protocols were performed. One or more of the following dose reduction techniques were used; automated exposure control, adjustment of the mA and/or KV according to patient size, use of iterative reconstruction technique. Findings: Fatty infiltration throughout the liver No definite gallstones Spleen is not enlarged No pancreatic or adrenal mass Significant perinephric stranding with wall thickening involving the pelvicalyceal systems and proximal ureters Aorta normal size No bowel obstruction Normal appendix Colonic ileus No diverticulitis Marked urinary bladder wall thickening with urinary Roque catheter Moderate osteopenia with moderate lumbar spondylosis Impression: Findings most consistent with bilateral pyelonephritis and cystitis Normal appendix Mild colonic ileus
[2024-10-13 12:03] LABS: B-Type Natriuretic Peptide 25 pg/mL (0-100)
[2024-10-13 12:15] LABS: INR 1.1 (0.9-1.3); Partial Thromboplastin Time 28.8 Seconds (22.0-36.0); Prothrombin Time 11.7 Seconds (9.0-12.2)
[2024-10-13] MEDS: SODIUM CHLORIDE 0.9% 1000 ML 1,000 ML 999 ML IV ×2 (12:15→15:23)
[2024-10-13 12:18] LABS: Alanine Aminotransferase 15 U/L (10-49); Albumin, Serum 4.4 gm/dL (3.5-5.0); Albumin/Globulin Ratio 1.4 (1.2-2.2); Alkaline Phosphatase 97 U/L (46-116); Anion Gap 10 (7-16); Aspartate Amino Transferase < 10 U/L (0-34); BUN/Creatinine Ratio 11 Ratio (12-20); Bilirubin,Total 0.4 mg/dL (0.3-1.2); Blood Urea Nitrogen 21 mg/dL (9-23); Calcium 9.7 mg/dL (8.3-10.6); Calcium (Corrected) 9.7 mg/dL (8.5-10.1); Carbon Dioxide 22.4 mMol/L (20.0-31.0); Chloride 109 mMol/L (98-107); Creatinine (Component) 1.9 mg/dL (0.6-1.3); Globulin 3.2 gm/dL (2.3-3.5); Glucose 143 mg/dL (74-106); LDH (Lactate Dehydrogenase) 176 U/L (120-246); Lipase 49 U/L (12-53); Magnesium 1.3 mg/dL (1.6-2.6); Osmolality,Calculated 286 (275-295); Phosphorous 2.2 mg/dL (2.4-5.1); Potassium 3.6 mMol/L (3.4-5.1); Procalcitonin 0.19 ng/ml (0.0-0.49); Sodium 141 mMol/L (136-145); Total Protein 7.6 gm/dL (5.7-8.2); Troponin I < 0.020 ng/mL (0.0-0.045); eGFR 41 See Note
[2024-10-13 12:38] LABS: Collection Type, Urine Clean Catch
[2024-10-13] MEDS: cefTRIAXone 1,000 MG in SODIUM CHLORIDE 0.9% (P) 50 ML 100 MG IV (12:59)
[2024-10-13 13:09] LABS: Bacteria,Urine Rare; Bilirubin,Urine Negative (Negative); Blood,Urine 1+ (Negative); Clarity,Urine Turbid (Clear/Hazy); Color,Urine Lt-Yellow (Lt Yel-Yel); Glucose, Urine Negative (Negative); Ketones,Urine Negative (Negative); Leukocyte Esterase,Urine Positive (Negative); Nitrite,Urine Negative (Negative); Protein,Urine 2+ (Neg - Trace); RBC,Urine 53 /hpf (0-3); Specific Gravity,Urine 1.012 (1.001-1.035); Squamous Epithelial Cell,Urine 3 /hpf (0-5); Urobilinogen,Urine Negative mg/dL (0.0-1.0); WBC,Urine 474 /hpf (0-5)
[2024-10-13] MEDS: Magnesium Sulfate 2 GM Ivpb 2 GM/50 ML BAG IV (13:58)
[2024-10-13] MEDS: TAMSULOSIN HCL 0.4 MG CAPSULE 0.8 MG PO (15:26)
[2024-10-13] MEDS: ACETAMINOPHEN 325 MG TABLET 650 MG PO ×2 (15:29→21:07)
--- NOTE | 2024-10-13 16:24 | PD.RESHP ---
Documentation for date of: 10/13/24 HPI History of Present Illness Chief complaint: dysuria History of present illness: Yoav Ram is 54 yr male with PMH of hypertension, insulin-dependent type 2 diabetes, CKD 3a, lumbar spinal injury, chronic back pain, BPH, urine incontinence/fecal incontinence with chronic Root, normocytic anemia who has presented to ED from nursing facility due to chills and dysuria. Patient was discharged September 14, 2024 after being treated for UTI and MILE. He followed up with Dr العلي who stated that patient would need a chronic Root catheter due to postrenal MILE and neurogenic bladder. Per patient, his root cath has not been changed since last discharge. Patient stated that he has been waiting to get neck MRI done for past year as surgeon will not fix lumbar spinal issues until imaging is done. He is denying any chest pain, palpitations, dizziness, fainting, hematuria. In ED, vitals show soft BP 96/59 after getting 1 L bolus fluids. Tachycardic 110?120, fever 103.1. Labs show leukocytosis 14.9, Hb 11.6, CR 1.9. Lactic acid was normal. Low phosphate 2.2, low mag 1.3. UA was positive for UTI. CT A/P showed cystitis and bilateral pyelonephritis. He was given ceftriaxone x 1, 1 L bolus fluids in the ED. Root cath was changed in ED. Old one had pus and discharge collecting around it. Patient will be admitted for sepsis secondary to acute pyelonephritis. PMH: as noted above PSH: right knee debridement in 2022. No other surgeries FamHx: mother HTN, other family unknown Social: has not smoked/drank since being place in [facility] a year ago. Used to drink socially. 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 Allergies: nkda Meds: Baclofen 10 mg daily, clonidine 0.1 mg daily, ferrous sulfate, finasteride 5 mg daily, losartan 100 mg daily, pregabalin 75 mg daily Review of Systems Review of Systems Systems Reviewed: All systems reviewed, normal except as documented Exam Vital Signs Temp Pulse Resp BP Pulse Ox O2 Del Method 100.5 F H 107 H 23 H 132/71 H 96 Room Air 10/13/24 16:00 10/13/24 16:00 10/13/24 16:00 10/13/24 16:00 10/13/24 16:00 10/13/24 16:00 Narrative Exam General: obese, mddle age male, mild distress, cooperative HEENT: NCAT, No JVD noted. Mucosa moist. Pupils are equal and reactive to light bilaterally Cardiovascular: Normal S1 and S2. Regular rate and rhythm. Respiratory: Lungs are clear to auscultation bilaterally. No wheezing or crackles heard. Abdomen: Soft, nontender, normal bowel sounds. Distended : New root in place, no discharge, no swelling Skin: Warm to touch, dry, B/L LE dermatitis Musculoskeletal: No gross injuries. Able to move all 4 extremities. +1 pitting edema Neuro: Alert and oriented x3. No focal neuro deficits. Psych: Normal affect and mood Results: Labs 10/15/24 05:11 10/15/24 05:11 Labs: Short CBC 10/13/24 Range/Units 11:34 WBC 14.9 H (3.8-10.6) Thou/mm3 Hgb 11.6 L (13.5-16.0) g/dL Hct 34.5 L (41.0-53.0) % Plt Count 262 D (140-440) Thou/mm3 BMP 10/13/24 11:34 Sodium 141 Potassium 3.6 Chloride 109 H Carbon Dioxide 22.4 BUN 21 Creatinine 1.9 H Glucose 143 H Calcium 9.7 Cardiac Enzymes 10/13/24 Range/Units 11:34 Troponin I < 0.020 (0.0-0.045) ng/mL Liver Function 10/13/24 Range/Units 11:34 Total Bilirubin 0.4 (0.3-1.2) mg/dL AST < 10 (0-34) U/L ALT 15 (10-49) U/L Alkaline Phosphatase 97 (46-116) U/L Albumin 4.4 (3.5-5.0) gm/dL Urine 10/13/24 Range/Units 12:15 Urine Color Lt-Yellow (Lt Yel-Yel) Urine Clarity Turbid A (Clear/Hazy) Urine pH 6.0 (5.0-7.0) Ur Specific [place] 1.012 (1.001-1.035) Urine Protein 2+ A (Neg - Trace) Urine Glucose (UA) Negative (Negative) Quality Measures Quality Measures none Medications Home Medications and Allergies Home Medications ?Medication ?Instructions ?Recorded ?Confirmed ?Type acetaminophen 650 mg tablet 650 mg PO Q6H PRN Pain (Scale 09/04/23 10/13/24 History Score 1-3) bisacodyl 10 mg rectal suppository 10 mg OH Q72H PRN Constipation 09/04/23 10/13/24 History (Dulcolax (bisacodyl)) magnesium oxide 400 mg (241.3 mg 400 mg PO BID 09/04/23 10/13/24 History magnesium) tablet (MagOx) docusate sodium 100 mg capsule 100 mg PO BID 10/11/23 10/13/24 History magnesium hydroxide 400 mg/5 mL 30 ml PO Q72H PRN Constipation 10/11/23 10/13/24 History oral suspension (Milk of Magnesia) ondansetron HCl 4 mg tablet 4 mg PO Q12H PRN Nausea And 10/11/23 10/13/24 History Vomiting pantoprazole 40 mg tablet,delayed 40 mg PO QDAY 10/11/23 10/13/24 History release pregabalin 75 mg capsule 150 mg PO BID 10/11/23 10/13/24 History finasteride 5 mg tablet 5 mg PO QDAY 01/31/24 10/13/24 History ascorbic acid (vitamin C) 500 mg 500 mg PO TID 09/12/24 10/13/24 History tablet (Vitamin C) baclofen 10 mg tablet 10 mg PO BID 09/12/24 10/13/24 History baclofen 10 mg tablet 20 mg PO HS 09/12/24 10/13/24 History clonidine HCl 0.1 mg tablet 0.1 mg PO Q12HR PRN HTN 09/12/24 10/13/24 History ferrous sulfate 325 mg (65 mg 325 mg PO QDAY 09/12/24 10/13/24 History iron) tablet insulin lispro 100 unit/mL See Rx Instructions .Route .COMPLEX 09/12/24 10/13/24 History subcutaneous pen losartan 100 mg tablet 100 mg PO QDAY 09/12/24 10/13/24 History methyl salicylate-menthol topical 1 applic topical Q4H PRN MUSCLE 09/12/24 10/13/24 History cream SPASMS potassium chloride 10 mEq 10 meq PO QDAY 09/12/24 10/13/24 History tablet,extended release sodium phosphates 19 gram-7 118 ml OH Q72H PRN Constipation 09/12/24 10/13/24 History gram/118 mL enema (Fleet Enema) cholecalciferol (vitamin D3) 125 125 mcg PO QDAY 10/13/24 10/13/24 History mcg (5,000 unit) tablet metronidazole 250 mg tablet 250 mg PO TID 10/13/24 10/13/24 History Allergies Allergy/AdvReac Type Severity Reaction Status Date / Time No Known Allergies Allergy Verified 01/31/24 11:43 Visit Medications Acetaminophen (Acetaminophen 325 Mg Tablet) 650 mg PO Q6H PRN PRN Reason: Fever >101.5 Stop: 11/12/24 14:55 Last Admin: 10/13/24 15:29 Dose: 650 mg Acetaminophen (Acetaminophen 325 Mg Tablet) 650 mg PO Q6H PRN PRN Reason: PAIN SCALE 1-3 (mild Stop: 11/12/24 14:55 Dextrose (Dextrose 50%-Water Inj 50 Ml Syringe) 25 ml IV Q15MIN PRN PRN Reason: BG 50-70 responsive npo pt Stop: 11/12/24 15:01 Docusate Sodium (Docusate Sod 100 Mg Capsule) 100 mg PO QDAY PRN; Protocol PRN Reason: CONSTIPATION Stop: 11/12/24 14:55 Finasteride (Finasteride 5 Mg Tablet) 5 mg PO DAILY [facility] Stop: 11/13/24 08:59 Glucagon (Glucagon Inj 1 Mg Vial) 1 mg IM Q15MIN PRN PRN Reason: BG <70, and no IV access Heparin Sodium (Porcine) (Heparin Sod Inj 5000 Unit/Ml Vial) 5,000 unit SC Q12HR LG Stop: 10/27/24 20:59 Ceftriaxone Sodium 1,000 mg/ (Sodium Chloride) 50 mls @ 100 mls/hr IV QDAY LG Stop: 10/21/24 08:59 Insulin Human Lispro (Insulin Lispro (Admelog) 1 Unit/0.01 Ml Unit) 0 unit SC LG; Protocol Stop: 11/12/24 16:59 Magnesium Hydroxide (Milk Of Magnesia Susp 30 Ml Udc) 30 ml PO QDAY PRN; Protocol PRN Reason: CONSTIPATION Stop: 11/12/24 14:55 Ondansetron HCl (Ondansetron Inj 2 Mg/Ml Inj 2 Ml) 4 mg IV Q6H PRN; Protocol PRN Reason: NAUSEA OR VOMITING Stop: 11/12/24 14:55 Pantoprazole Sodium (Pantoprazole 40 Mg Tablet) 40 mg PO DAILY [facility] Stop: 11/13/24 08:59 Pregabalin (Pregabalin 75 Mg Capsule) 150 mg PO BID LG Stop: 11/12/24 20:59 Discontinued Medications Sodium Chloride (Ns) 1,000 mls @ 999 mls/hr IV .Q1H1M ONE Stop: 10/13/24 12:51 Last Infusion: 10/13/24 14:15 Dose: Infused Ceftriaxone Sodium 1,000 mg/ (Sodium Chloride) 50 mls @ 100 mls/hr IV X1 ONE Stop: 10/13/24 13:14 Last Infusion: 10/13/24 13:42 Dose: Infused Magnesium Sulfate (Magnesium Sulfate Ivpb) 2 gm in 50 mls @ 25 mls/hr IV X1 ONE Stop: 10/13/24 15:10 Last Infusion: 10/13/24 15:44 Dose: Infused Ceftriaxone Sodium 1,000 mg/ (Sodium Chloride) 50 mls @ 100 mls/hr IV QDAY LG Stop: 10/21/24 08:59 Sodium Chloride (Ns) 1,000 mls @ 999 mls/hr IV .Q1H1M ONE Stop: 10/13/24 16:00 Last Admin: 10/13/24 15:23 Dose: 999 mls/hr Ibuprofen (Ibuprofen Tab 400 Mg Tablet) 800 mg PO X1 ONE Stop: 10/13/24 11:48 Last Admin: 10/13/24 11:51 Dose: 800 mg Tamsulosin HCl (Tamsulosin Hcl 0.4 Mg Capsule) 0.8 mg PO X1 ONE Stop: 10/13/24 15:01 Last Admin: 10/13/24 15:26 Dose: 0.8 mg Assessment & Plan Plan Yoav Ram is 54 yr male with PMH of hypertension, insulin-dependent type 2 diabetes, CKD 3 AAA, lumbar spinal injury, chronic back pain, BPH, urine incontinence/fecal incontinence with chronic Root, normocytic anemia who has presented to ED from nursing facility due to chills and dysuria. Patient has chronic Root catheter which has not been changed since last discharge in August. In ED Root cath was replaced. Patient admitted for sepsis secondary to bilateral pyelonephritis. #Sepsis 2/2 #Acute bilateral pyelonephritis #Complicated UTI Findings confirmed on CT abdomen/pelvis. WBCs elevated 14.9, lactic acid normal. UA positive for UTI. Root catheter was replaced in the ED -Ceftriaxone 2 g daily for 7 days (10/13?) ? Patient to receive 2 additional liter of fluids. S/p 2 L bolus NS -Urine culture pending ? Blood culture pending #Constipation Patient has abdominal distention on physical exam. Stated that he has been having difficulty with bowel movement. ? KUB pending ? Bowel regimen senna 1 tab daily #Hx CKD stage IIIa Patient follows Dr العلي. On previous admission he had MILE on CKD and was discharged with Root catheter. Will resume the Root catheter and patient. No evidence of MILE currently on top of his CKD. ? Avoid nephrotoxic agents ? Fluid resuscitation ? Daily CMP #Insulin dependent type 2 diabetes, poorly controlled On admission initial glucose 143. Last A1c 10.7 on 09/12/24. 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 Stated that he had fell twisted his knee and landed on his back. Is pending to see surgeon for some time. Evaluation by surgeon is pending neck MRI. Has not been able to get the MRI done due to body habitus. ? Will consider CT myelogram on Tuesday ? Continue baclofen 10 mg daily ?Pregabalin 75 mg daily #Hx hypertension ? Home medication include clonidine 0.1 mg daily ? Losartan 100 mg daily ? Hold for now in setting of sepsis #Normocytic anemia -Patient is taking ferrous sulfate 325 mg outpatient #Hx BPH ? Resume finasteride 5 mg daily Health maintenance: Dispo: abx for pyelo, cultures pending DVT prophylaxis:Lovenox CODE STATUS: Full code Diet: CHO consistent The patient's management plan was discussed with my attending physician Dr. Justin Melendrez, PGY-1 Attending Provider Attestation/Addendum I have discussed and was present for the essential components of the history, physical examination, diagnosis, and treatment plan with the resident. I agree with the patient's care as documented by the resident and amended herein by me. Boom Anderson DO. Patient seen and evaluated this AM. No acute events overnight, vital signs stable, patient afebrile, I/oh 3100/3250, 1 bowel movement recorded overnight. WBC downtrending to 16 today, hemoglobin 8.7. Creatinine 2.5 which appears to be stable however unimproved from previous day, nephrology, Dr العلي has been consulted. Will continue the patient on Zosyn and doxycycline and follow-up with culture results which are pending. I did mention to the patient that we may reach out to his neurosurgeon tomorrow, Dr. Cervantes in [place], to check on exactly what imaging would be required for the patient, per the patient's mother as a CT myelogram of the cervical spine which the patient has been unable able to obtain and has been stuck at [facility] with these recurrent infections. If we can help the patient obtain what imaging he needs to proceed with a spinal surgery maybe we can help him with that while he is here considering the difficulty for him not just getting to imaging centers but being able to have a Shavonne lift get him onto the table for the imaging. Patient cannot have his urological issues addressed until after he has back surgery according to him and his mother who is very up-to-date on his medical information. Will continue to monitor closely while he is here. Although this document has been carefully reviewed, there may still be some phonetic and other typographical errors. These errors are purely grammatical due to imperfections in the software program and should not be construed in any way to compromise the substance of the patient's medical care during this visit.
--- NOTE | 2024-10-13 17:11 | XR_ITS ---
Examination: Abdomen AP single view Technique: AP portable supine abdomen, single view Exam date and time: October 13, 2024 1514 hrs. Indications: Abdominal distention today. Findings: Moderate air and stool throughout the colon Small bowel ileus No free air Impression: Significant small bowel ileus versus partial mechanical small bowel obstruction, clinical correlation advised
[2024-10-13] MEDS: SIMETHICONE 80 MG CHEW PO (18:06)
[2024-10-13] MEDS: SODIUM CHLORIDE 0.9% 1000 ML 1,000 ML 250 ML IV ×2 (18:31→22:40)
[2024-10-13] MEDS: BACLOFEN 10 MG TABLET PO (21:07)
[2024-10-13] MEDS: PREGABALIN 75 MG CAPSULE 150 MG PO (21:07)
[2024-10-13] MEDS: HEPARIN SOD INJ 5000 UNIT/ML VIAL SC (21:08)
[2024-10-14] VITALS (9 sets, daily range): BP systolic 88–138; BP diastolic 58–84; PULSE 78–114; RESP 14–96; TEMP 36.2–37.1; O2SAT 93–99
[2024-10-14 01:43] LABS: Lactate (Lactic Acid) 2.6 mMol/L (0.4-2.0)
[2024-10-14] MEDS: ACETAMINOPHEN 325 MG TABLET 650 MG PO ×3 (02:47→14:54)
[2024-10-14 04:42] LABS: Reflex Lactate? Y
[2024-10-14 06:06] LABS: Basophils # (Auto) 0.1 Thou/mm3 (0.0-0.2); Basophils % (Auto) 0 % (0-2.5); Eosinophils % (Auto) 0 % (0-10); Hematocrit 28.2 % (41.0-53.0); Hemoglobin 9.3 g/dL (13.5-16.0); Immature Granulocytes % (Auto) 2 % (0-0); Immature Granulocytes Auto 0.37 Thou/mm3 (0.00-0.00); Lymphocytes # (Auto) 1.3 Thou/mm3 (1.0-4.8); Lymphocytes % (Auto) 6 % (10-50); Mean Corpuscular Hemoglobin 29.7 pg (25.0-35.0); Mean Corpuscular Volume 90 fL (80-100); Monocytes # (Auto) 1.4 Thou/mm3 (0.0-0.8); Monocytes % (Auto) 6 % (0-12); Neutrophils # (Auto) 19.8 Thou/mm3 (1.8-7.7); Neutrophils % (Auto) 86 % (37-80); Nucleated Red Blood Cell % 0 /100 WBC (0); Platelet Count 230 Thou/mm3 (140-440); RDW Standard Deviation 47.9 fL (35.1-43.9); Red Blood Count 3.13 Miln/mm3 (4.50-5.90)
[2024-10-14 06:47] LABS: Anion Gap 10 (7-16); BUN/Creatinine Ratio 9 Ratio (12-20); Blood Urea Nitrogen 23 mg/dL (9-23); Calcium 8.6 mg/dL (8.3-10.6); Carbon Dioxide 18.8 mMol/L (20.0-31.0); Chloride 109 mMol/L (98-107); Creatinine (Component) 2.5 mg/dL (0.6-1.3); Estimated Creatinine Clearance 49.9 mL/min (>60); Glucose 148 mg/dL (74-106); Magnesium 1.3 mg/dL (1.6-2.6); Osmolality,Calculated 282 (275-295); Phosphorous 2.9 mg/dL (2.4-5.1); Potassium 3.4 mMol/L (3.4-5.1); Sodium 138 mMol/L (136-145); eGFR 30 See Note
[2024-10-14 07:38] LABS: Lactic Acid, 3 HR 2.3 mMol/L (0.4-2.0)
[2024-10-14] MEDS: PREGABALIN 75 MG CAPSULE 150 MG PO ×2 (08:29→20:21)
[2024-10-14] MEDS: Magnesium Sulfate 4 GM Ivpb 4 GM/50 ML BAG IV (08:29)
[2024-10-14] MEDS: HEPARIN SOD INJ 5000 UNIT/ML VIAL SC ×2 (08:29→20:21)
[2024-10-14] MEDS: FINASTERIDE 5 MG TABLET PO (08:30)
[2024-10-14] MEDS: POTASSIUM CHLORIDE 20 mEq TABCR PO (08:31)
[2024-10-14] MEDS: PANTOPRAZOLE 40 MG TABLET PO (08:32)
[2024-10-14] MEDS: PIPER/TAZO 3.375 GM 3.375 GM/50 ML BAG IV ×3 (09:10→21:34)
[2024-10-14] MEDS: DOXYCYCLINE INJ 100 MG in SODIUM CHLORIDE 0.9% (P) 100 ML IV ×2 (09:33→20:17)
--- NOTE | 2024-10-14 10:55 | CHAP ---
Patient received communion and prayer from [facility] Volunteer. (Volunteer was in the hospital from 10:28-10:55)
[2024-10-14 11:56] LABS: Lactate (Lactic Acid) 1.9 mMol/L (0.4-2.0)
[2024-10-14] MEDS: SODIUM CHLORIDE 0.9% 1000 ML 1,000 ML 150 ML IV (12:20)
[2024-10-14] MEDS: INSULIN LISPRO (AdmeLOG) 1 UNIT/0.01 ML UNIT SC (12:20)
--- NOTE | 2024-10-14 14:35 | XR_ITS ---
Examination: Retroperitoneal ultrasound, complete Technique: Multiple high resolution grayscale images of the retroperitoneum obtained, including kidneys and bladder. Exam date and time:October 14, 2024 at 1559 hrs. Comparison September 13, 2024 Indications: Diagnosis chronic kidney disease with pyelonephritis this week Findings: Right kidney 11.7 cm renal cortex 2.7 cm Left kidney 11.0 cm cortex 1.5 cm No hydronephrosis or renal calculi Urinary bladder contracted around a Roque catheter Impression: Study is significantly limited secondary to patient's size No hydronephrosis or renal calculi
--- NOTE | 2024-10-14 14:40 | ESPR_ITS ---
<Statement entered by Priscilla Hua MD - 10/14/24 16:00> I discussed with and supervised my co-resident involved in the care of this patient. I agree with the assessment and plan as documented above. Patient seen at bedside. He endorses feeling chills last night. At bedside, patient looks well. His Roque has some sediment in it. Labs show worsening leukocytosis, a non-aniongap metabolic acidosis, and creatinine at 2.5. Lactic acidosis improved. Will broaden IV antibiotics from ceftriaxone to zosyn and doxycyline for broader coverage, and will follow up on cultures. Nephrology following. Priscilla Hua MD PGY-3 Documentation for date of: 10/14/24 Subjective Subjective Interval history: Patient was seen at bedside this morning. No overnight events. Patient did mention that he had chills overnight, but he did not have any fevers overnight. Patient's WBC bit up trended to 23 from 14.9. Patient's lactic acid was 2.3 this morning, but on repeat was 1.9 afterwards. Patient's magnesium was also low at 1.3 therefore gave 4 g magnesium IV. Patient kidney function didworsen with creatinine of 2.5 today, therefore consulted nephrology. Blood cultures negative in the first 24 hours. Patient has no other complaints at this time. Exam Vital Signs Temp Pulse Resp BP Pulse Ox O2 Del Method 98.1 F 90 17 132/82 H 96 Room Air 10/14/24 12:00 10/14/24 12:00 10/14/24 12:00 10/14/24 12:00 10/14/24 12:00 10/14/24 12:00 Narrative Exam General: A/O x3, no acute distress Eyes: PERRL, EOMI. Anicteric, vision grossly intact. Ears: No ear pain, no ear discharge, Hearing grossly intact. Nose: No nasal discharge. Mouth/Throat: Moist mucous membranes, no redness, no lesions. Neck: Neck supple, non-tender, no cervical lymphadenopathy. Lungs: Clear CLAUDIA, No accessory muscle use. Cardio: Normal S1/S2, regular rhythm, no murmurs, no JVD Abdomen: Soft, non-tender, no palpable masses, peristalsis present, no guarding or rebound. Extremities: Symmetrical, no significant deformities, trace peripheral edema , non-tender, peripheral pulses presents. Skin: No rashes, no lesions, warm to touch. Neuro: No focal neurological deficits. LE strength 3/5, but sensory intact. Objective Labs 10/14/24 05:38 10/14/24 05:38 Labs: Laboratory Results - last 24 hr 10/14/24 10/14/24 10/14/24 01:23 05:38 07:05 WBC 23.0 H D RBC 3.13 L Hgb 9.3 L D Hct 28.2 L MCV 90 MCH 29.7 MCHC 33.0 RDW Std Deviation 47.9 H Plt Count 230 D Neut % (Auto) 86 H Lymph % (Auto) 6 L [place] % (Auto) 6 Eos % (Auto) 0 Baso % (Auto) 0 Neut # (Auto) 19.8 H Lymph # (Auto) 1.3 [place] # (Auto) 1.4 H Eos # (Auto) 0.0 Baso # (Auto) 0.1 Immature Gran # (Auto) 0.37 H Absolute Nucleated RBC 0.00 Immature Gran % 2 H Nucleated RBC % 0 Sodium 138 Potassium 3.4 Chloride 109 H Carbon Dioxide 18.8 L Anion Gap 10 BUN 23 Creatinine 2.5 H D Estim Creat Clear Calc 49.9 L eGFR 30 L BUN/Creatinine Ratio 9 L Glucose 148 H Calculated Osmolality 282 Lactic Acid 2.6 H 2.3 H Calcium 8.6 Phosphorus 2.9 Magnesium 1.3 L 10/14/24 11:37 WBC RBC Hgb Hct MCV MCH MCHC RDW Std Deviation Plt Count Neut % (Auto) Lymph % (Auto) [place] % (Auto) Eos % (Auto) Baso % (Auto) Neut # (Auto) Lymph # (Auto) [place] # (Auto) Eos # (Auto) Baso # (Auto) Immature Gran # (Auto) Absolute Nucleated RBC Immature Gran % Nucleated RBC % Sodium Potassium Chloride Carbon Dioxide Anion Gap BUN Creatinine Estim Creat Clear Calc eGFR BUN/Creatinine Ratio Glucose Calculated Osmolality Lactic Acid 1.9 Calcium Phosphorus Magnesium Quality Measures Quality Measures none Assessment & Plan Assessment Current Active Medications: Generic Name Dose Route Start Last Admin Trade Name Freq PRN Reason Stop Dose Admin Acetaminophen 650 mg 10/13/24 14:56 10/13/24 15:29 Acetaminophen 325 Mg Tablet PO 11/12/24 14:55 650 mg Q6H PRN Administration Fever >101.5 Acetaminophen 650 mg 10/13/24 14:56 10/14/24 08:48 Acetaminophen 325 Mg Tablet PO 11/12/24 14:55 650 mg Q6H PRN Administration PAIN SCALE 1-3 (mild Baclofen 10 mg 10/13/24 17:15 10/13/24 21:07 Baclofen 10 Mg Tablet PO 11/12/24 17:14 10 mg DAILY PRN Administration MUSCLE SPASMS OR BACK PAIN Dextrose 25 ml 10/13/24 15:02 Dextrose 50%-Water Inj 50 Ml Syringe IV 11/12/24 15:01 Q15MIN PRN BG 50-70 responsive npo pt Docusate Sodium 100 mg 10/13/24 14:56 Docusate Sod 100 Mg Capsule PO 11/12/24 14:55 QDAY PRN CONSTIPATION Protocol Finasteride 5 mg 10/14/24 09:00 10/14/24 08:30 Finasteride 5 Mg Tablet PO 11/13/24 08:59 5 mg DAILY LG Administration Glucagon 1 mg 10/13/24 15:02 Glucagon Inj 1 Mg Vial IM Q15MIN PRN BG <70, and no IV access Heparin Sodium (Porcine) 5,000 unit 10/13/24 21:00 10/14/24 08:29 Heparin Sod Inj 5000 Unit/Ml Vial SC 10/27/24 20:59 5,000 unit Q12HR LG Administration Piperacillin/Tazobactam/Dextrose 3.375 gm in 50 mls @ 12.5 mls/hr 10/14/24 14:00 Zosyn IV 10/21/24 13:59 Q8HR LG Doxycycline Hyclate 100 mg/ 100 mls @ 100 mls/hr 10/14/24 09:00 10/14/24 12:10 Sodium Chloride IV 10/21/24 08:59 Infused BID LG Infusion Sodium Chloride 1,000 mls @ 150 mls/hr 10/14/24 10:30 10/14/24 12:20 Ns IV 10/14/24 17:09 150 mls/hr .Q6H40M LG Administration Insulin Human Lispro 0 unit 10/13/24 17:00 10/14/24 12:20 Insulin Lispro (Admelog) 1 Unit/0.01 Ml Unit SC 11/12/24 16:59 2 unit AC LG Administration Protocol Magnesium Hydroxide 30 ml 10/13/24 14:56 Milk Of Magnesia Susp 30 Ml Udc PO 11/12/24 14:55 QDAY PRN CONSTIPATION Protocol Ondansetron HCl 4 mg 10/13/24 14:56 Ondansetron Inj 2 Mg/Ml Inj 2 Ml IV 11/12/24 14:55 Q6H PRN NAUSEA OR VOMITING Protocol Pantoprazole Sodium 40 mg 10/14/24 09:00 10/14/24 08:32 Pantoprazole 40 Mg Tablet PO 11/13/24 08:59 40 mg DAILY LG Administration Pregabalin 150 mg 10/13/24 21:00 10/14/24 08:29 Pregabalin 75 Mg Capsule PO 11/12/24 20:59 150 mg BID LG Administration Plan 54-year-old male with past medical history of hypertension, IDDM, CKD stage IIIb, lumbar spinal injury with chronic back pain and resulting in urinary incontinence (on chronic indwelling Roque) and bowel incontinence, and anemia who was admitted to the hospital on 10/13/2024 due to bilateral pyelonephritis and complicated UTI. #Bilateral pyelonephritis in the setting of #Cystitis #Complicated UTI #Lactic acidosis, resolved #Chronic indwelling Roque catheter ? Patient came in initially with complaints of chills and dysuria. ? Patient has chronic indwelling Roque catheter ? UA was positive for bacteria and leukocytes esterase ? Abdomen/pelvis CT was positive for bilateral pyelonephritis and cystitis ?Lactic acid 2.6 and down trended to 1.9 today. ?Blood cultures negative in the first 24 hours ? Rocephin discontinued (10/13/2024 - 10/14/2024) Plan: ? Started doxycycline and Zosyn [10/14/2024?] ?IV fluids ? Pending urine and blood cultures ? Continue Roque catheter ? Will continue to monitor #CKD stage IIIb ?Patient has a baseline creatinine of around 1.9 and GFR of 41 this admission ? Creatinine 2.5 and GFR 30 today ?Still having good output Plan: ?Urine electrolytes ordered ? Ultrasound bilateral kidneys ordered ? Avoid nephrotoxic agents ? Renally dose medication ? Nephrology consulted, appreciate recommendations #Electrolyte imbalance #Hypophosphatemia, resolved #Hypomagnesemia ? Patient came in initially with phosphorus of 2.2 and magnesium of 1.3 ? Phosphorus 2.9 and magnesium 1.3 today Plan: ? Magnesium 4 g x 1 ? Will continue to replete as necessary #Normocytic normochromic anemia ?Patient's baseline hemoglobin around 11 ? Hemoglobin today 9.3, this most likely due to hemodilution given he got aggressive IV fluid Plan: ? Will check for hemoglobin less than 7 ? Will continue monitor #DM2 ? A1c 10.7 on 08/2024 Plan: ? ISS ? Accu-Cheks and hypoglycemia protocol ordered ? Continue monitor #Hx of hypertension ?Patient's blood pressure has been under control during this hospital admission. ? Will hold off on antihypertensive medication for now #Hx of BPH ?Continue finasteride and tamsulosin #Hx of lumbar spine injury #Hx of urinary incontinence with indwelling Roque catheter #Hx of bowel incontinence ?Continue baclofen and Lyrica ?Continue Roque catheter, changed on hospital admission. Disposition: Changed Abx to Zosyn/Doxy, consulted Nephrology, pending . Diet: carb consistent low GI prophylaxis: protonix DVT prophylaxis: heparin sc Code: Full code Case disclosed with Attending Dr. Anderson and My senior Dr. Hua PGY3. Joseph Gallagher PGY1 Attending Provider Attestation/Addendum I have discussed and was present for the essential components of the history, physical examination, diagnosis, and treatment plan with the resident. I agree with the patient's care as documented by the resident and amended herein by me. Boom Anderson, . Patient seen and evaluated this AM. No acute events overnight, vital signs stable, patient afebrile overnight. Patient feels improved today however WBC increased to 23, hemoglobin 9.3, lactic acid 2.3, potassium 3.4, bicarb 18 and creatinine has increased to 0.5. Blood cultures negative thus far, urine cultures pending. Antibiotics switched to Zosyn and will continue doxycycline for now. Nephrology consulted, appreciate recommendations, will likely give additional fluids today and replete electrolytes as necessary. Continue to monitor closely Although this document has been carefully reviewed, there may still be some phonetic and other typographical errors. These errors are purely grammatical due to imperfections in the software program and should not be construed in any way to compromise the substance of the patient's medical care during this visit.
[2024-10-14 15:27] LABS: Lactate (Lactic Acid) 1.3 mMol/L (0.4-2.0)
[2024-10-15] VITALS (7 sets, daily range): BP systolic 98–108; BP diastolic 58–79; PULSE 75–93; RESP 18–97; TEMP 35.8–37.3; O2SAT 94–96
[2024-10-15] MEDS: PIPER/TAZO 3.375 GM 3.375 GM/50 ML BAG IV ×3 (05:41→22:58)
[2024-10-15 06:00] LABS: Basophils # (Auto) 0.1 Thou/mm3 (0.0-0.2); Basophils % (Auto) 0 % (0-2.5); Eosinophils # (Auto) 0.4 Thou/mm3 (0.0-0.5); Eosinophils % (Auto) 2 % (0-10); Immature Granulocytes % (Auto) 1 % (0-0); Immature Granulocytes Auto 0.19 Thou/mm3 (0.00-0.00); Lymphocytes # (Auto) 1.9 Thou/mm3 (1.0-4.8); Lymphocytes % (Auto) 11 % (10-50); Mean Corpuscular HGB Conc 33.5 g/dl (31.0-37.0); Mean Corpuscular Hemoglobin 30.1 pg (25.0-35.0); Mean Corpuscular Volume 90 fL (80-100); Monocytes # (Auto) 1.3 Thou/mm3 (0.0-0.8); Monocytes % (Auto) 8 % (0-12); Neutrophils # (Auto) 12.8 Thou/mm3 (1.8-7.7); Neutrophils % (Auto) 77 % (37-80); Nucleated Red Blood Cell % 0 /100 WBC (0); Platelet Count 248 Thou/mm3 (140-440); RDW Standard Deviation 47.7 fL (35.1-43.9); Red Blood Count 2.89 Miln/mm3 (4.50-5.90); White Blood Count 16.5 Thou/mm3 (3.8-10.6)
[2024-10-15 06:19] LABS: Hemoglobin 8.7 g/dL (13.5-16.0)
[2024-10-15 06:30] LABS: Anion Gap 10 (7-16); BUN/Creatinine Ratio 10 Ratio (12-20); Blood Urea Nitrogen 25 mg/dL (9-23); Calcium 8.6 mg/dL (8.3-10.6); Carbon Dioxide 17.6 mMol/L (20.0-31.0); Chloride 107 mMol/L (98-107); Creatinine (Component) 2.5 mg/dL (0.6-1.3); Estimated Creatinine Clearance 50.5 mL/min (>60); Glucose 131 mg/dL (74-106); Magnesium 1.8 mg/dL (1.6-2.6); Osmolality,Calculated 276 (275-295); Phosphorous 2.5 mg/dL (2.4-5.1); Potassium 2.9 mMol/L (3.4-5.1); Sodium 135 mMol/L (136-145); eGFR 30 See Note
[2024-10-15] MEDS: PREGABALIN 75 MG CAPSULE 150 MG PO ×2 (08:07→20:25)
[2024-10-15] MEDS: FINASTERIDE 5 MG TABLET PO (08:07)
[2024-10-15] MEDS: HEPARIN SOD INJ 5000 UNIT/ML VIAL SC ×2 (08:07→20:25)
[2024-10-15] MEDS: PANTOPRAZOLE 40 MG TABLET PO (08:08)
[2024-10-15] MEDS: Magnesium Sulfate 4 GM Ivpb 4 GM/50 ML BAG IV (08:08)
[2024-10-15] MEDS: POTASSIUM CHL 10 mEq IVPB 10 MEQ/100 ML BAG 100 MEQ IV ×2 (08:08→09:21)
[2024-10-15] MEDS: POTASSIUM CHLORIDE 20 mEq TABCR 40 MEQ PO (08:20)
[2024-10-15] MEDS: DOXYCYCLINE INJ 100 MG in SODIUM CHLORIDE 0.9% (P) 100 ML IV ×2 (09:15→20:25)
[2024-10-15] MEDS: ACETAMINOPHEN 325 MG TABLET 650 MG PO ×2 (09:20→23:07)
--- NOTE | 2024-10-15 10:29 | CHAP ---
Patient expressed gratitude for visit and prayer.
[2024-10-15] MEDS: SODIUM BICARBONATE 650 MG TABLET PO (10:35)
--- NOTE | 2024-10-15 13:19 | ESPR_ITS ---
<Statement entered by Priscilla Hua MD - 10/15/24 14:12> I discussed with and supervised my co-resident involved in the care of this patient. I agree with the assessment and plan as documented above. Patient seen at bedside. No acute complaints overnight. Labs show improving leukocytosis. Patient also has hypokalemia and a nonaniongap metabolic acidosis. Urine electrolytes pending. Due to his NAGMA, will give bicarb tab. Will follow up with Dr. العلي, his door person. Will continue zosyn and doxycyline for his UTI and follow up on the cultures. Priscilla Hua MD PGY-3 Documentation for date of: 10/15/24 Subjective Subjective Interval history: Patient seen and examined at bedside. No overnight. No major complaints. Leukocytosis improving 16.5. Potassium 2.9 and was repleted with 40+40 mEq. Bicarb 17.6 indicating normal anion gap metabolic acidosis-urine lytes pending. Start patient on bicarb 650 mg daily Continue doxycycline 100 twice daily and Zosyn for bilateral pyelonephritis. Urine cultures still pending, preliminary blood cultures negative. Exam Vital Signs Temp Pulse Resp BP Pulse Ox O2 Del Method 96.4 F L 75 20 106/58 L 94 L Room Air 10/15/24 12:00 10/15/24 12:00 10/15/24 12:00 10/15/24 12:00 10/15/24 12:00 10/15/24 12:00 Narrative Exam General: obese, mddle age male, mild distress, cooperative HEENT: NCAT, No JVD noted. Mucosa moist. Pupils are equal and reactive to light bilaterally Cardiovascular: Normal S1 and S2. Regular rate and rhythm. Respiratory: Lungs are clear to auscultation bilaterally. No wheezing or crackles heard. Abdomen: Soft, nontender, normal bowel sounds. Distended : root in place, no discharge, no swelling Skin: Warm to touch, dry, B/L LE dermatitis Musculoskeletal: No gross injuries. Able to move all 4 extremities. +1 pitting edema Neuro: Alert and oriented x3. No focal neuro deficits. Psych: Normal affect and mood Objective Labs 10/15/24 05:11 10/15/24 05:11 Labs: Laboratory Results - last 24 hr 10/14/24 10/15/24 14:58 05:11 WBC 16.5 H D RBC 2.89 L Hgb 8.7 L Hct 26.0 L MCV 90 MCH 30.1 MCHC 33.5 RDW Std Deviation 47.7 H Plt Count 248 Neut % (Auto) 77 Lymph % (Auto) 11 [place] % (Auto) 8 Eos % (Auto) 2 Baso % (Auto) 0 Neut # (Auto) 12.8 H Lymph # (Auto) 1.9 [place] # (Auto) 1.3 H Eos # (Auto) 0.4 Baso # (Auto) 0.1 Immature Gran # (Auto) 0.19 H Absolute Nucleated RBC 0.00 Immature Gran % 1 H Nucleated RBC % 0 Sodium 135 L Potassium 2.9 L D Chloride 107 Carbon Dioxide 17.6 L Anion Gap 10 BUN 25 H Creatinine 2.5 H Estim Creat Clear Calc 50.5 L eGFR 30 L BUN/Creatinine Ratio 10 L Glucose 131 H Calculated Osmolality 276 Lactic Acid 1.3 Calcium 8.6 Phosphorus 2.5 Magnesium 1.8 Quality Measures Quality Measures none Assessment & Plan Assessment Current Active Medications: Generic Name Dose Route Start Last Admin Trade Name Freq PRN Reason Stop Dose Admin Acetaminophen 650 mg 10/13/24 14:56 10/14/24 14:54 Acetaminophen 325 Mg Tablet PO 11/12/24 14:55 650 mg Q6H PRN Administration Fever >101.5 Acetaminophen 650 mg 10/13/24 14:56 10/15/24 09:20 Acetaminophen 325 Mg Tablet PO 11/12/24 14:55 650 mg Q6H PRN Administration PAIN SCALE 1-3 (mild Baclofen 10 mg 10/13/24 17:15 10/13/24 21:07 Baclofen 10 Mg Tablet PO 11/12/24 17:14 10 mg DAILY PRN Administration MUSCLE SPASMS OR BACK PAIN Dextrose 25 ml 10/13/24 15:02 Dextrose 50%-Water Inj 50 Ml Syringe IV 11/12/24 15:01 Q15MIN PRN BG 50-70 responsive npo pt Docusate Sodium 100 mg 10/13/24 14:56 Docusate Sod 100 Mg Capsule PO 11/12/24 14:55 QDAY PRN CONSTIPATION Protocol Finasteride 5 mg 10/14/24 09:00 10/15/24 08:07 Finasteride 5 Mg Tablet PO 11/13/24 08:59 5 mg DAILY LG Administration Glucagon 1 mg 10/13/24 15:02 Glucagon Inj 1 Mg Vial IM Q15MIN PRN BG <70, and no IV access Heparin Sodium (Porcine) 5,000 unit 10/13/24 21:00 10/15/24 08:07 Heparin Sod Inj 5000 Unit/Ml Vial SC 10/27/24 20:59 5,000 unit Q12HR LG Administration Piperacillin/Tazobactam/Dextrose 3.375 gm in 50 mls @ 12.5 mls/hr 10/14/24 14:00 10/15/24 05:41 Zosyn IV 10/21/24 13:59 12.5 mls/hr Q8HR LG Administration Doxycycline Hyclate 100 mg/ 100 mls @ 100 mls/hr 10/14/24 09:00 10/15/24 09:15 Sodium Chloride IV 10/21/24 08:59 100 mls/hr BID LG Administration Insulin Human Lispro 0 unit 10/13/24 17:00 10/15/24 07:28 Insulin Lispro (Admelog) 1 Unit/0.01 Ml Unit SC 11/12/24 16:59 Not Given AC LG Protocol Magnesium Hydroxide 30 ml 10/13/24 14:56 Milk Of Magnesia Susp 30 Ml Udc PO 11/12/24 14:55 QDAY PRN CONSTIPATION Protocol Ondansetron HCl 4 mg 10/13/24 14:56 Ondansetron Inj 2 Mg/Ml Inj 2 Ml IV 11/12/24 14:55 Q6H PRN NAUSEA OR VOMITING Protocol Pantoprazole Sodium 40 mg 10/14/24 09:00 10/15/24 08:08 Pantoprazole 40 Mg Tablet PO 11/13/24 08:59 40 mg DAILY LG Administration Pregabalin 150 mg 10/13/24 21:00 10/15/24 08:07 Pregabalin 75 Mg Capsule PO 11/12/24 20:59 150 mg BID LG Administration Sodium Bicarbonate 650 mg 10/15/24 10:30 10/15/24 10:35 Sodium Bicarbonate 650 Mg Tablet PO 11/14/24 10:29 650 mg DAILY LG Administration Plan 54-year-old male with past medical history of hypertension, IDDM, CKD stage IIIb, lumbar spinal injury with chronic back pain and resulting in urinary incontinence (on chronic indwelling Root) and bowel incontinence, and anemia who was admitted to the hospital on 10/13/2024 due to bilateral pyelonephritis and complicated UTI. #Complicated UTI with pyelonephritis Patient came in initially with complaints of chills and dysuria. Patient has chronic indwelling Root catheter since last discharge due to neurogenic bladder. UA was positive for bacteria and leukocytes esterase Abdomen/pelvis CT was positive for bilateral pyelonephritis and cystitis Blood cultures negative in the first 24 hours Rocephin discontinued (10/13/2024 - 10/14/2024) ? continue doxycycline 500mg BID and Zosyn [10/14/2024?] ? Pending urine and final blood cultures ? Continue Root catheter ? Will continue to monitor #NAGMA Ddx: GI losses, RTA, normal saline -bicarb 650 mg daily -daily CMP #MILE on CKD stage IIIb Patient has a baseline creatinine of around 1.9 and GFR of 41 this admission No hydronephrosis or renal calculi on kidney ultrasound ?Urine electrolytes pending ? Avoid nephrotoxic agents ? Renally dose medication ? Nephrology consulted, appreciate recommendations #Electrolyte imbalance -replete as needed #Normocytic normochromic anemia Most likely dilutional ?Patient's baseline hemoglobin around 11 -daily CBC #Insulin dependent type 2 diabetes, poorly controlled On admission initial glucose 143. Last A1c 10.7 on 09/12/24. -Held home medications -Bedside blood glucose checks ACHS -Insulin lispro sliding scale -Carb consistent low diet #Hx of hypertension ?Patient's blood pressure has been under control during this hospital admission. ? Will hold off on antihypertensive medication for now #Hx of BPH ?Continue finasteride and tamsulosin #Hx of lumbar spine injury #Hx of urinary incontinence with indwelling Root catheter #Hx of bowel incontinence ?Continue baclofen and Lyrica ?Continue Root catheter, changed on hospital admission. #Sepsis ruled out #Lactic acidosis, resolved Disposition: abx for pyelo, culture pending Diet: carb consistent low GI prophylaxis: protonix DVT prophylaxis: heparin sc Code: Full code The patient's management plan was discussed with my attending physician Dr. Anderson and senior Dr. Hua. Elisabeth Melendrez, PGY-1 Attending Provider Attestation/Addendum I have discussed and was present for the essential components of the history, physical examination, diagnosis, and treatment plan with the resident. I agree with the patient's care as documented by the resident and amended herein by me. Boom Anderson DO. Patient seen and evaluated this AM. No acute events overnight, vital signs stable, patient afebrile, I/oh 3100/3250, 1 bowel movement recorded overnight. WBC downtrending to 16 today, hemoglobin 8.7. Creatinine 2.5 which appears to be stable however unimproved from previous day, nephrology, Dr العلي has been consulted. Will continue the patient on Zosyn and doxycycline and follow-up with culture results which are pending. I did mention to the patient that we may reach out to his neurosurgeon tomorrow, Dr. Cervantes in [place], to check on exactly what imaging would be required for the patient, per the patient's mother as a CT myelogram of the cervical spine which the patient has been unable able to obtain and has been stuck at SNF with these recurrent infections. If we can help the patient obtain what imaging he needs to proceed with a spinal surgery maybe we can help him with that while he is here considering the difficulty for him not just getting to imaging centers but being able to have a Shavonne lift get him onto the table for the imaging. Patient cannot have his urological issues addressed until after he has back surgery according to him and his mother who is very up-to-date on his medical information. Will continue to monitor closely while he is here. Although this document has been carefully reviewed, there may still be some phonetic and other typographical errors. These errors are purely grammatical due to imperfections in the software program and should not be construed in any way to compromise the substance of the patient's medical care during this visit.
--- NOTE | 2024-10-15 13:52 | ESCONSULT_ITS ---
RE: SILVERIO VIRGEN : 1970 DATE OF CONSULTATION: 10/15/2024 REASON FOR REFERRAL: Stage III CKD. REFERRING PHYSICIAN: Telly Melendrez MD HISTORY OF PRESENT ILLNESS: The patient is a 54-year-old [place] gentleman with a past medical history significant for type 2 diabetes, hypertension, L5 ganglionic compression, neurogenic bladder with stage IIIB to stage IV CKD secondary to obstructive uropathy who was admitted to the hospital on 10/13/2024 for fever, tachypnea and relatively low blood pressures. The patient while in the emergency room got 1 liter of IV fluid and blood pressure improved. The patient was eventually admitted. As per patient, when they drained the urine bag, it seems like there was pus in it. The patient was started on IV Rocephin 1 g daily. He said that he is doing much better and he has no more fever. The patient also has bilateral hydronephrosis and chronic indwelling Roque catheter . The patient is waiting for his neurosurgery procedure to hopefully release the L5 ganglionic compression as the neurosurgeon believes that it is the cause of his neurogenic bladder. However, the patient could not go through an MRI either because of his size or due to his claustrophobia or his back pain. When he was admitted, he was noted with an elevated white cell count of 23,000. Serum creatinine of 2.5. He currently denies any fever. PAST MEDICAL HISTORY: Type 2 diabetes, neuropathy, stage III to stage IV CKD, BPH, neurogenic bladder. PAST SURGICAL HISTORY: Cystoscopy and foot surgery. CURRENT MEDICATIONS: 1. Acetaminophen. 2. Baclofen 10 mg daily. 3. Doxycycline 100 mg b.i.d. 4. Finasteride 5 mg daily. 5. Lispro sliding scale. 6. Ondansetron 4 mg IV every 6 hours. 7. Protonix 40 mg p.o. daily. 8. Zosyn 3.375 grams IV every 8 hours. PHYSICAL EXAMINATION: GENERAL: He is awake, alert, and oriented, not in respiratory distress. VITAL SIGNS: Blood pressure of 103/74. HEENT: Anicteric sclerae. Normocephalic. NECK: Supple. No JVD. CHEST AND LUNGS: Symmetrical expansion. Clear breath sounds. CARDIAC: Without murmur. ABDOMEN: Distended. EXTREMITIES: No edema. LABORATORY DATA: Sodium 135, potassium 2.9, chloride 107, CO2 of 17.6, BUN 25, creatinine 2.5, glucose 131, phosphorus 2.5. Hemoglobin 8.7, WBC 6400, platelet count 248,000. ASSESSMENT: 1. Stage IIIB chronic kidney disease secondary to neurogenic bladder. 2. Anemia of chronic kidney disease. 3. Urinary tract infection. 4. Type 2 diabetes with neuropathy and nephropathy. 5. History of L5 ganglionic compression being seen by neurosurgeon in [place]. 6. Hypotension. PLAN: 1. Continue supportive treatment. 2. Continue IV antibiotics. 3. Will need to change Roque bag once a month. DT: 12:30:38 TT: 13:42:00 Ref: [id number] - TID: [id number] MTDD
--- NOTE | 2024-10-15 16:21 | PC.SS ---
Rounding: Pending cultures
[2024-10-16] VITALS: BP 121/76; PULSE 69; RESP 18; TEMP 36.1; O2SAT 97
[2024-10-16 04:00] VITALS: BP 119/83; PULSE 68; RESP 18; TEMP 36.1; O2SAT 97
[2024-10-16] MEDS: PIPER/TAZO 3.375 GM 3.375 GM/50 ML BAG IV (05:00)
[2024-10-16 05:28] LABS: Basophils # (Auto) 0.1 Thou/mm3 (0.0-0.2); Basophils % (Auto) 1 % (0-2.5); Eosinophils # (Auto) 0.5 Thou/mm3 (0.0-0.5); Eosinophils % (Auto) 4 % (0-10); Hematocrit 27.4 % (41.0-53.0); Immature Granulocytes % (Auto) 1 % (0-0); Immature Granulocytes Auto 0.13 Thou/mm3 (0.00-0.00); Lymphocytes # (Auto) 1.7 Thou/mm3 (1.0-4.8); Lymphocytes % (Auto) 16 % (10-50); Mean Corpuscular HGB Conc 32.8 g/dl (31.0-37.0); Mean Corpuscular Hemoglobin 29.7 pg (25.0-35.0); Mean Corpuscular Volume 90 fL (80-100); Monocytes # (Auto) 0.7 Thou/mm3 (0.0-0.8); Monocytes % (Auto) 6 % (0-12); Neutrophils # (Auto) 7.9 Thou/mm3 (1.8-7.7); Neutrophils % (Auto) 72 % (37-80); Nucleated Red Blood Cell % 0 /100 WBC (0); Platelet Count 281 Thou/mm3 (140-440); RDW Standard Deviation 47.9 fL (35.1-43.9); Red Blood Count 3.03 Miln/mm3 (4.50-5.90); White Blood Count 10.9 Thou/mm3 (3.8-10.6)
[2024-10-16 05:39] LABS: Anion Gap 10 (7-16); BUN/Creatinine Ratio 10 Ratio (12-20); Blood Urea Nitrogen 23 mg/dL (9-23); Calcium 9.3 mg/dL (8.3-10.6); Carbon Dioxide 20.8 mMol/L (20.0-31.0); Chloride 109 mMol/L (98-107); Creatinine (Component) 2.2 mg/dL (0.6-1.3); Estimated Creatinine Clearance 57.4 mL/min (>60); Glucose 130 mg/dL (74-106); Magnesium 2.3 mg/dL (1.6-2.6); Osmolality,Calculated 285 (275-295); Phosphorous 2.8 mg/dL (2.4-5.1); Potassium 3.4 mMol/L (3.4-5.1); Sodium 140 mMol/L (136-145); eGFR 35 See Note
[2024-10-16 08:00] VITALS: BP 131/87; PULSE 74; RESP 18; TEMP 36.2; O2SAT 96
--- NOTE | 2024-10-16 08:14 | PC.SS ---
Patient Yoav Ram is a 54 Year old male admitted for Urosepsis. SS met with patient at bedside in order to complete initial assessment. Patient reported He resides at [facility] assisted and has been at facility over a year. Patient states he will be returning when medically stable. Patient states his mother, Renu, is the alt medical decision maker. Patient will need transportation assistance. PCP: Dr. Ge. Discharge plan: [facility] next of kin: motherRenu [phone]
[2024-10-16] MEDS: PREGABALIN 75 MG CAPSULE 150 MG PO ×2 (09:34→20:34)
[2024-10-16] MEDS: FINASTERIDE 5 MG TABLET PO (09:34)
[2024-10-16] MEDS: DOXYCYCLINE INJ 100 MG in SODIUM CHLORIDE 0.9% (P) 100 ML IV (09:34)
[2024-10-16] MEDS: SODIUM BICARBONATE 650 MG TABLET PO (09:35)
[2024-10-16] MEDS: PANTOPRAZOLE 40 MG TABLET PO (09:35)
[2024-10-16] MEDS: HEPARIN SOD INJ 5000 UNIT/ML VIAL SC ×2 (09:36→20:40)
[2024-10-16] MEDS: ACETAMINOPHEN 325 MG TABLET 650 MG PO ×2 (10:39→22:23)
[2024-10-16] MEDS: POTASSIUM CHLORIDE 10% 20 MEQ/15 ML UDC 40 MEQ PO (10:39)
[2024-10-16] MEDS: SIMETHICONE 80 MG CHEW PO ×2 (11:10→20:36)
[2024-10-16 12:00] VITALS: BP 122/81; PULSE 70; RESP 19; TEMP 36.3; O2SAT 96
[2024-10-16] MEDS: LEVOFLOXACIN/D5W 750MG IVPB 750 MG/150 ML BAG 100 MG IV (12:02)
--- NOTE | 2024-10-16 12:22 | ESPR_ITS ---
<Statement entered by Priscilla Hua MD - 10/16/24 15:51> I discussed with and supervised my co-resident involved in the care of this patient. I agree with the assessment and plan as documented above. Patient seen and examined at bedside. No acute complaints overnight. Urine culture grew Pseudomonas. Plan to change antibiotics to levofloxacin. Final blood cultures pending, negative so far. Leukocytosis resolved. The internal medicine team attempted to reach out to patient's neurosurgeon office to check what kind of imaging patient will need to prepare him for his back surgery, however office has been unavailable so far today. Anticipate discharge within 24-48 hours pending final blood cultures. Priscilla Hua MD PGY-3 Documentation for date of: 10/16/24 Subjective Subjective Interval history: Patient seen and examined at bedside. No overnight. No major complaints. Leukocytosis improving to 10. Potassium 3.4 and was repleted with 40mEq. Bicarb improved to 20 after starting bicarbs tabs. Continue bicarb 650 mg daily Urine cultures positive for Psudomonas. Stop doxycycline and Zosyn.--start IV levofloxacin 750mg daily x5days Will contact Dr. Cervantes in [place], to check on exactly what imaging would be required for the patient. Exam Vital Signs Temp Pulse Resp BP Pulse Ox O2 Del Method 97.4 F 70 19 122/81 96 Room Air 10/16/24 12:00 10/16/24 12:00 10/16/24 12:00 10/16/24 12:00 10/16/24 12:00 10/16/24 12:00 Narrative Exam General: obese, mddle age male, mild distress, cooperative HEENT: NCAT, No JVD noted. Mucosa moist. Pupils are equal and reactive to light bilaterally Cardiovascular: Normal S1 and S2. Regular rate and rhythm. Respiratory: Lungs are clear to auscultation bilaterally. No wheezing or crackles heard. Abdomen: Soft, nontender, normal bowel sounds. Distended : root in place, no discharge, no swelling Skin: Warm to touch, dry, B/L LE dermatitis Musculoskeletal: No gross injuries. Able to move all 4 extremities. +1 pitting edema Neuro: Alert and oriented x3. No focal neuro deficits. Psych: Normal affect and mood Objective Labs 10/17/24 04:34 10/17/24 04:34 Labs: Laboratory Results - last 24 hr 10/16/24 04:57 WBC 10.9 H D RBC 3.03 L Hgb 9.0 L Hct 27.4 L MCV 90 MCH 29.7 MCHC 32.8 RDW Std Deviation 47.9 H Plt Count 281 D Neut % (Auto) 72 Lymph % (Auto) 16 [place] % (Auto) 6 Eos % (Auto) 4 Baso % (Auto) 1 Neut # (Auto) 7.9 H Lymph # (Auto) 1.7 [place] # (Auto) 0.7 Eos # (Auto) 0.5 Baso # (Auto) 0.1 Immature Gran # (Auto) 0.13 H Absolute Nucleated RBC 0.00 Immature Gran % 1 H Nucleated RBC % 0 Sodium 140 Potassium 3.4 D Chloride 109 H Carbon Dioxide 20.8 Anion Gap 10 BUN 23 Creatinine 2.2 H Estim Creat Clear Calc 57.4 L eGFR 35 L BUN/Creatinine Ratio 10 L Glucose 130 H Calculated Osmolality 285 Calcium 9.3 Phosphorus 2.8 Magnesium 2.3 Quality Measures Quality Measures none Assessment & Plan Assessment Current Active Medications: Generic Name Dose Route Start Last Admin Trade Name Freq PRN Reason Stop Dose Admin Acetaminophen 650 mg 10/13/24 14:56 10/14/24 14:54 Acetaminophen 325 Mg Tablet PO 11/12/24 14:55 650 mg Q6H PRN Administration Fever >101.5 Acetaminophen 650 mg 10/13/24 14:56 10/16/24 10:39 Acetaminophen 325 Mg Tablet PO 11/12/24 14:55 650 mg Q6H PRN Administration PAIN SCALE 1-3 (mild Baclofen 10 mg 10/13/24 17:15 10/13/24 21:07 Baclofen 10 Mg Tablet PO 11/12/24 17:14 10 mg DAILY PRN Administration MUSCLE SPASMS OR BACK PAIN Protocol Dextrose 25 ml 10/13/24 15:02 Dextrose 50%-Water Inj 50 Ml Syringe IV 11/12/24 15:01 Q15MIN PRN BG 50-70 responsive npo pt Docusate Sodium 100 mg 10/13/24 14:56 Docusate Sod 100 Mg Capsule PO 11/12/24 14:55 QDAY PRN CONSTIPATION Protocol Finasteride 5 mg 10/14/24 09:00 10/16/24 09:34 Finasteride 5 Mg Tablet PO 11/13/24 08:59 5 mg DAILY LG Administration Glucagon 1 mg 10/13/24 15:02 Glucagon Inj 1 Mg Vial IM Q15MIN PRN BG <70, and no IV access Heparin Sodium (Porcine) 5,000 unit 10/13/24 21:00 10/16/24 09:36 Heparin Sod Inj 5000 Unit/Ml Vial SC 10/27/24 20:59 5,000 unit Q12HR LG Administration Levofloxacin/Dextrose 750 mg in 150 mls @ 100 mls/hr 10/16/24 11:15 10/16/24 12:02 Levaquin Ivpb IV 10/21/24 11:14 100 mls/hr QDAY LG Administration Insulin Human Lispro 0 unit 10/13/24 17:00 10/16/24 07:30 Insulin Lispro (Admelog) 1 Unit/0.01 Ml Unit SC 11/12/24 16:59 Not Given AC LG Protocol Magnesium Hydroxide 30 ml 10/13/24 14:56 Milk Of Magnesia Susp 30 Ml Udc PO 11/12/24 14:55 QDAY PRN CONSTIPATION Protocol Ondansetron HCl 4 mg 10/13/24 14:56 Ondansetron Inj 2 Mg/Ml Inj 2 Ml IV 11/12/24 14:55 Q6H PRN NAUSEA OR VOMITING Protocol Pantoprazole Sodium 40 mg 10/14/24 09:00 10/16/24 09:35 Pantoprazole 40 Mg Tablet PO 11/13/24 08:59 40 mg DAILY LG Administration Pregabalin 150 mg 10/13/24 21:00 10/16/24 09:34 Pregabalin 75 Mg Capsule PO 11/12/24 20:59 150 mg BID LG Administration Simethicone 80 mg 10/16/24 11:00 10/16/24 11:10 Simethicone 80 Mg Chew PO 11/15/24 10:59 80 mg QID PRN Administration GAS Sodium Bicarbonate 650 mg 10/15/24 10:30 10/16/24 09:35 Sodium Bicarbonate 650 Mg Tablet PO 11/14/24 10:29 650 mg DAILY LG Administration Plan 54-year-old male with past medical history of hypertension, IDDM, CKD stage IIIb, lumbar spinal injury with chronic back pain and resulting in urinary incontinence (on chronic indwelling Root) and bowel incontinence, and anemia who was admitted to the hospital on 10/13/2024 due to bilateral pyelonephritis and complicated UTI. #Complicated Pseudomonas UTI Patient came in initially with complaints of chills and dysuria. Patient has chronic indwelling Root catheter since last discharge due to neurogenic bladder. UA was positive for bacteria and leukocytes esterase Abdomen/pelvis CT was positive for bilateral pyelonephritis and cystitis Blood cultures negative in the first 24 hours -urine culture + Pseudomonas ? stop doxycycline 500mg BID and Zosyn [10/14/2024?10/16] -start IV levofloxacin 750mg daily x5days (10/16-) ? Continue Root catheter ? Will continue to monitor #NAGMA-resolving Ddx: GI losses, RTA, normal saline -bicarb 650 mg daily -daily CMP #MILE on CKD stage IIIb Patient has a baseline creatinine of around 1.9 and GFR of 41 this admission No hydronephrosis or renal calculi on kidney ultrasound ?Urine electrolytes pending ? Avoid nephrotoxic agents ? Renally dose medication ? Nephrology consulted, appreciate recommendations #Electrolyte imbalance -replete as needed #Normocytic normochromic anemia Most likely dilutional ?Patient's baseline hemoglobin around 11 -daily CBC #Insulin dependent type 2 diabetes, poorly controlled On admission initial glucose 143. Last A1c 10.7 on 09/12/24. -Held home medications -Bedside blood glucose checks ACHS -Insulin lispro sliding scale -Carb consistent low diet #Hx of hypertension ?Patient's blood pressure has been under control during this hospital admission. ? Will hold off on antihypertensive medication for now #Hx of BPH ?Continue finasteride and tamsulosin #Hx of lumbar spine injury #Hx of urinary incontinence with indwelling Root catheter #Hx of bowel incontinence ?Continue baclofen and Lyrica ?Continue Root catheter, changed on hospital admission. -Will contact Dr. Cervantes in [place], to check on exactly what imaging would be required for the patient. #Sepsis ruled out #Lactic acidosis, resolved Disposition: Pseuodmonas UTI Diet: carb consistent low GI prophylaxis: protonix DVT prophylaxis: heparin sc Code: Full code The patient's management plan was discussed with my attending physician Dr. Norton and senior Dr. Hua. Elisabeth Melendrez, PGY-1 Attending Provider Attestation/Addendum I reviewed labs, imaging, EKG, home medications and prior available records. Face to face evaluation was performed by me. I have personally examined the patient and discussed assessment and plan with the IM team. I reviewed the resident note and agree with the plan with exceptions as below. Acute Pseudomonas UTI Urosepsis MILE on CKD Chronic Root catheter Leukocytosis Prolonged QTc Lower back pain in setting of lumbar spine injury Continue IV Zosyn given the prolonged QTc Trend WBC: Downtrending Monitor kidney function: Creatinine improved. Avoid nephrotoxins. Renally dosed medications Discussed with neurosurgery in [place]: Can obtain MRI spine prior to discharge
--- NOTE | 2024-10-16 15:25 | PC.SS ---
SS follow up note; SS contacted Samanta from [facility] inregards to patient needing Samanta ordoñez requesting for PT eval. SS will fax PT notes onces available.
[2024-10-16 16:00] VITALS: BP 113/78; PULSE 80; RESP 19; TEMP 36.7; O2SAT 96
[2024-10-16] MEDS: PIPER/TAZO INJ 3.375 GM in SODIUM CHLORIDE 0.9% (P) 50 ML IV ×2 (16:08→22:17)
[2024-10-16 20:00] VITALS: BP 126/75; PULSE 73; RESP 16; TEMP 36.2; O2SAT 97
[2024-10-16] MEDS: BACLOFEN 10 MG TABLET PO (20:39)
[2024-10-17] VITALS: BP 121/81; PULSE 66; RESP 18; TEMP 37; O2SAT 97
--- NOTE | 2024-10-17 | XR_ITS ---
Examination: MRI cervical spine without intravenous contrast Date and time of exam: October 17, 2024 1116 hours INDICATIONS: Neck pain after work injury one year ago Technique: Multiple axial and sagittal sections of the cervical spine to been obtained. T2 weighted sagittal sections, TR 3, 270, TE 117 T1-weighted sagittal sections, TR 500, TE 11 T1-weighted axial sections, TR 607, TE 12, axial sections TR 18, TE 27 and T2 weighted transverse sections, TR 3920, TE 122. Findings: Adequate alignment cervical vertebral bodies. No cervical fracture Intact odontoid Diffuse cervical disc desiccation Adequate marrow signal cervical vertebral bodies No localized enlargement cervical cord C2-C3 mild bilateral neural foraminal stenosis C3-C4 moderate bilateral neural foraminal stenosis C4-C5 moderate right advanced left neural foraminal stenosis C5-C6 advanced bilateral neural foraminal stenosis 2 mm left paracentral osteophyte disc complex C6-C7 4 mm central disc protrusion indenting the ventral margin cervical cord, advanced bilateral neural foraminal stenosis C7-T1 no disc protrusion IMPRESSION: C3-C4 moderate bilateral neural foraminal stenosis C4-C5 moderate right advanced left neural foraminal stenosis C5-C6 C6-C7 advanced bilateral neural foraminal stenosis
--- NOTE | 2024-10-17 | XR_ITS ---
Examination: MRI lumbar spine without contrast Date and time of exam: October 17, 2024 1137 hours Comparison June 17, 2024 INDICATIONS: Back pain years urinary incontinence one year after work injury Technique: Multiple MRI axial and sagittal sections lumbar spine. Sagittal T2-weighted images, TR 3500, TE 118 T1 weighted transverse sections, TR 688 T8.5, T2-weighted sagittal sections T1 weighted sagittal sections TR 621, TE 30 T2 axial sections, TR 4, 190, TE 84. Findings: Adequate alignment lumbar vertebral bodies on the lateral view Diffuse lumbar disc desiccation Mild to moderate diffuse lumbar disc narrowing most prominent at L5-S1 No spondylolisthesis L5-S1 large, 10 mm extruded central lumbar disc displacing the right and left S1 nerve roots and producing mild left L5 ganglionic compression L4-L5 7 mm central lumbar disc bulge L3-L4 2 mm central lumbar disc bulge L2-L3 no disc protrusion L1-L2 no disc protrusion IMPRESSION: L5-S1 large, 10 mm, extruded central lumbar disc displacing the right and left S1 nerve roots and producing mild left L5 ganglionic compression L4-L5 7 mm central lumbar disc
[2024-10-17 04:00] VITALS: BP 147/87; PULSE 72; RESP 18; TEMP 36.6; O2SAT 94
[2024-10-17] MEDS: ACETAMINOPHEN 325 MG TABLET 650 MG PO (04:06)
[2024-10-17 05:26] LABS: Basophils # (Auto) 0.1 Thou/mm3 (0.0-0.2); Basophils % (Auto) 1 % (0-2.5); Eosinophils # (Auto) 0.4 Thou/mm3 (0.0-0.5); Eosinophils % (Auto) 5 % (0-10); Hematocrit 27.9 % (41.0-53.0); Hemoglobin 9.2 g/dL (13.5-16.0); Immature Granulocytes % (Auto) 2 % (0-0); Immature Granulocytes Auto 0.17 Thou/mm3 (0.00-0.00); Lymphocytes % (Auto) 23 % (10-50); Mean Corpuscular Hemoglobin 29.5 pg (25.0-35.0); Mean Corpuscular Volume 89 fL (80-100); Monocytes # (Auto) 0.5 Thou/mm3 (0.0-0.8); Monocytes % (Auto) 5 % (0-12); Neutrophils # (Auto) 5.7 Thou/mm3 (1.8-7.7); Neutrophils % (Auto) 64 % (37-80); Nucleated Red Blood Cell % 0 /100 WBC (0); Platelet Count 318 Thou/mm3 (140-440); RDW Standard Deviation 47.4 fL (35.1-43.9); Red Blood Count 3.12 Miln/mm3 (4.50-5.90); White Blood Count 8.8 Thou/mm3 (3.8-10.6)
[2024-10-17] MEDS: PIPER/TAZO INJ 3.375 GM in SODIUM CHLORIDE 0.9% (P) 50 ML IV ×3 (05:40→21:08)
[2024-10-17 05:52] LABS: Alanine Aminotransferase 13 U/L (10-49); Albumin, Serum 3.7 gm/dL (3.5-5.0); Albumin/Globulin Ratio 1.2 (1.2-2.2); Alkaline Phosphatase 68 U/L (46-116); Anion Gap 10 (7-16); Aspartate Amino Transferase 12 U/L (0-34); BUN/Creatinine Ratio 12 Ratio (12-20); Bilirubin,Total 0.3 mg/dL (0.3-1.2); Blood Urea Nitrogen 21 mg/dL (9-23); Calcium 9.4 mg/dL (8.3-10.6); Calcium (Corrected) 9.6 mg/dL (8.5-10.1); Carbon Dioxide 22.8 mMol/L (20.0-31.0); Chloride 108 mMol/L (98-107); Creatinine (Component) 1.8 mg/dL (0.6-1.3); Estimated Creatinine Clearance 69.8 mL/min (>60); Globulin 3.1 gm/dL (2.3-3.5); Glucose 127 mg/dL (74-106); Osmolality,Calculated 286 (275-295); Potassium 3.4 mMol/L (3.4-5.1); Sodium 141 mMol/L (136-145); Total Protein 6.8 gm/dL (5.7-8.2); eGFR 44 See Note
[2024-10-17 08:00] VITALS: BP 119/71; PULSE 77; RESP 18; TEMP 36.3; O2SAT 96
[2024-10-17] MEDS: POTASSIUM CHLORIDE 10% 20 MEQ/15 ML UDC 40 MEQ GT (08:42)
[2024-10-17] MEDS: PANTOPRAZOLE 40 MG TABLET PO (08:42)
[2024-10-17] MEDS: PREGABALIN 75 MG CAPSULE 150 MG PO ×2 (08:42→21:08)
[2024-10-17] MEDS: FINASTERIDE 5 MG TABLET PO (08:43)
[2024-10-17] MEDS: HEPARIN SOD INJ 5000 UNIT/ML VIAL SC ×2 (08:44→21:08)
--- NOTE | 2024-10-17 10:08 | ESPR_ITS ---
<Statement entered by Priscilla Hua MD - 10/17/24 13:28> I discussed with and supervised my co-resident involved in the care of this patient. I agree with the assessment and plan as documented above. No acute events overnight. Antibiotics changed back from levofloxacin to Zosyn due to prolonged QT on EKG. Electrolytes repleted. Will recheck EKG. Patient to undergo MRI of cervical and lumbar spine today. Priscilla Hua MD PGY-3 Documentation for date of: 10/17/24 Subjective Subjective Interval history: Patient seen and examined at bedside. No overnight events. Complaining of gas retention even after having BM. Leukocytosis improving to 8.8 today. Potassium 3.4 and was repleted with KCL 40mEq. NAGMA has resolved with bicarb tabs. Will hold for now. Continue Zosyn 3.375mg TID for treatment of Pseudomonas UTI. Repeat EKG pending to check for QT rate as patient will need fluoroquinolone on discharge (initial EKG had QT prolongation 513) Dr. Cervantes's clinic in [place] was contacted yesterday. Acceptable forms of imaging for patient were MRI cervical/lumbar spine or CT myelogram cervical/lumbar spine. Patient will be going for MRI today. Anticipate discharge next 24hrs after imaging completed. Exam Vital Signs Temp Pulse Resp BP Pulse Ox O2 Del Method 97.4 F 77 18 119/71 96 Room Air 10/17/24 08:00 10/17/24 08:00 10/17/24 08:00 10/17/24 08:00 10/17/24 08:00 10/17/24 08:00 Narrative Exam General: obese, mddle age male, mild distress, cooperative HEENT: NCAT, No JVD noted. Mucosa moist. Pupils are equal and reactive to light bilaterally Cardiovascular: Normal S1 and S2. Regular rate and rhythm. Respiratory: Lungs are clear to auscultation bilaterally. No wheezing or crackles heard. Abdomen: Soft, nontender, normal bowel sounds. Distended : root in place, no discharge, no swelling Skin: Warm to touch, dry, B/L LE dermatitis Musculoskeletal: No gross injuries. Able to move all 4 extremities. +1 pitting edema Neuro: Alert and oriented x3. No focal neuro deficits. Psych: Normal affect and mood Objective Labs 10/18/24 05:00 10/18/24 05:00 Labs: Laboratory Results - last 24 hr 10/17/24 04:34 WBC 8.8 RBC 3.12 L Hgb 9.2 L Hct 27.9 L MCV 89 MCH 29.5 MCHC 33.0 RDW Std Deviation 47.4 H Plt Count 318 D Neut % (Auto) 64 Lymph % (Auto) 23 [place] % (Auto) 5 Eos % (Auto) 5 Baso % (Auto) 1 Neut # (Auto) 5.7 Lymph # (Auto) 2.0 [place] # (Auto) 0.5 Eos # (Auto) 0.4 Baso # (Auto) 0.1 Immature Gran # (Auto) 0.17 H Absolute Nucleated RBC 0.00 Immature Gran % 2 H Nucleated RBC % 0 Sodium 141 Potassium 3.4 Chloride 108 H Carbon Dioxide 22.8 Anion Gap 10 BUN 21 Creatinine 1.8 H Estim Creat Clear Calc 69.8 eGFR 44 L BUN/Creatinine Ratio 12 Glucose 127 H Calculated Osmolality 286 Calcium 9.4 Corrected Calcium 9.6 Total Bilirubin 0.3 AST 12 ALT 13 Alkaline Phosphatase 68 Total Protein 6.8 Albumin 3.7 Globulin 3.1 Albumin/Globulin Ratio 1.2 Quality Measures Quality Measures none Assessment & Plan Assessment Current Active Medications: Generic Name Dose Route Start Last Admin Trade Name Freq PRN Reason Stop Dose Admin Acetaminophen 650 mg 10/13/24 14:56 10/14/24 14:54 Acetaminophen 325 Mg Tablet PO 11/12/24 14:55 650 mg Q6H PRN Administration Fever >101.5 Acetaminophen 650 mg 10/13/24 14:56 10/17/24 04:06 Acetaminophen 325 Mg Tablet PO 11/12/24 14:55 650 mg Q6H PRN Administration PAIN SCALE 1-3 (mild Baclofen 10 mg 10/13/24 17:15 10/16/24 20:39 Baclofen 10 Mg Tablet PO 11/12/24 17:14 10 mg DAILY PRN Administration MUSCLE SPASMS OR BACK PAIN Protocol Dextrose 25 ml 10/13/24 15:02 Dextrose 50%-Water Inj 50 Ml Syringe IV 11/12/24 15:01 Q15MIN PRN BG 50-70 responsive npo pt Docusate Sodium 100 mg 10/13/24 14:56 Docusate Sod 100 Mg Capsule PO 11/12/24 14:55 QDAY PRN CONSTIPATION Protocol Finasteride 5 mg 10/14/24 09:00 10/17/24 08:43 Finasteride 5 Mg Tablet PO 11/13/24 08:59 5 mg DAILY LG Administration Glucagon 1 mg 10/13/24 15:02 Glucagon Inj 1 Mg Vial IM Q15MIN PRN BG <70, and no IV access Heparin Sodium (Porcine) 5,000 unit 10/13/24 21:00 10/17/24 08:44 Heparin Sod Inj 5000 Unit/Ml Vial SC 10/27/24 20:59 5,000 unit Q12HR LG Administration Piperacillin Sod/Tazobactam 50 mls @ 12.5 mls/hr 10/16/24 15:15 10/17/24 05:40 Sod 3.375 gm/ Sodium Chloride IV 10/23/24 15:14 12.5 mls/hr Q8HR LG Administration Insulin Human Lispro 0 unit 10/13/24 17:00 10/16/24 17:15 Insulin Lispro (Admelog) 1 Unit/0.01 Ml Unit SC 11/12/24 16:59 Not Given AC LG Protocol Magnesium Hydroxide 30 ml 10/13/24 14:56 Milk Of Magnesia Susp 30 Ml Udc PO 11/12/24 14:55 QDAY PRN CONSTIPATION Protocol Ondansetron HCl 4 mg 10/13/24 14:56 Ondansetron Inj 2 Mg/Ml Inj 2 Ml IV 11/12/24 14:55 Q6H PRN NAUSEA OR VOMITING Protocol Pantoprazole Sodium 40 mg 10/14/24 09:00 10/17/24 08:42 Pantoprazole 40 Mg Tablet PO 11/13/24 08:59 40 mg DAILY LG Administration Pregabalin 150 mg 10/13/24 21:00 10/17/24 08:42 Pregabalin 75 Mg Capsule PO 11/12/24 20:59 150 mg BID LG Administration Simethicone 80 mg 10/16/24 11:00 10/16/24 20:36 Simethicone 80 Mg Chew PO 11/15/24 10:59 80 mg QID PRN Administration GAS Plan 54-year-old male with past medical history of hypertension, IDDM, CKD stage IIIb, lumbar spinal injury with chronic back pain and resulting in urinary incontinence (on chronic indwelling Root) and bowel incontinence, and anemia who was admitted to the hospital on 10/13/2024 due to bilateral pyelonephritis and complicated UTI. #Complicated Pseudomonas UTI Patient came in initially with complaints of chills and dysuria. Patient has chronic indwelling Root catheter since last discharge due to neurogenic bladder. UA was positive for bacteria and leukocytes esterase Abdomen/pelvis CT was positive for bilateral pyelonephritis and cystitis Blood cultures negative in the first 24 hours -urine culture + Pseudomonas -stopped IV levofloxacin due to QT prolongation -resumed Zosyn 3.375g TID (continue for 7 day course until 10/20) ? Continue Root catheter ? Will continue to monitor #Electrolyte imbalance #QT prolongation EKG on admission showed a rate of 101, QTc 513. -hold QT prolonging agents (avoiding levofloxacin for his Pseudomonas UTI) ? Repeat EKG pending -replete electrolytes as needed #Normocytic normochromic anemia Most likely dilutional ?Patient's baseline hemoglobin around 11 -daily CBC #Insulin dependent type 2 diabetes, poorly controlled On admission initial glucose 143. Last A1c 10.7 on 09/12/24. -Held home medications -Bedside blood glucose checks ACHS -Insulin lispro sliding scale -Carb consistent low diet #Hx of hypertension ?Patient's blood pressure has been under control during this hospital admission. ? Will hold off on antihypertensive medication for now #Hx of BPH ?Continue finasteride and tamsulosin #Hx of lumbar spine injury #Hx of urinary incontinence with indwelling Root catheter #Hx of bowel incontinence ?Continue baclofen and Lyrica ?Continue Root catheter, changed on hospital admission. -Dr. Cervantes's clinic in [place] was contacted yesterday. Acceptable forms of imaging for patient included MRI cervical/lumbar spine or CT myelogram cervical/lumbar spine. -plan for MRI #Sepsis ruled out #Lactic acidosis, resolved #NAGMA-resolved #MILE on CKD stage IIIb-resolved Disposition: Pseuodmonas UTI Diet: carb consistent low GI prophylaxis: protonix DVT prophylaxis: heparin sc Code: Full code The patient's management plan was discussed with my attending physician Dr. Norton and senior Dr. Hua. Elisabeth Melendrez, PGY-1 Attending Provider Attestation/Addendum I reviewed labs, imaging, EKG, home medications and prior available records. Face to face evaluation was performed by me. I have personally examined the patient and discussed assessment and plan with the IM team. I reviewed the resident note and agree with the plan with exceptions as below. Acute Pseudomonas UTI Urosepsis MILE on CKD Chronic Root catheter Leukocytosis Prolonged QTc Lower back pain in setting of lumbar spine injury Continue IV Zosyn Repeat EKG showed that QTc is within normal range. May switch to levofloxacin Trend WBC: Downtrending Monitor kidney function: Creatinine improved. Avoid nephrotoxins. Renally dosed medications Discussed with neurosurgery in [place]: Obtain spine MRI that showed L5-S1 large, 10 mm, extruded central lumbar disc displacing the right and left S1 nerve roots and producing mild left L5 ganglionic compression. He will need to follow-up with neurosurgery for surgical intervention Time spent is 40 minutes. More than 50% of the time was spent on patient education and coordination of care.
[2024-10-17] MEDS: LORazepam 0.5 MG TABLET 2 MG PO (10:50)
--- NOTE | 2024-10-17 11:28 | EKG_ITS ---
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
--- NOTE | 2024-10-17 14:30 | PC.SS ---
SS follow up note; SS contacted Samanta from [facility] and informed her that patient would possibly discharge today. SAMANTA requested Clinicals and PT note to be sent via enso. SS sent Requested information. 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 Samanta informed SS she would be submitting for auth and patient could possibly discharge today or tomorrow if auth is obtained.
[2024-10-17 16:00] VITALS: BP 122/82; PULSE 74; RESP 18; TEMP 36.2; O2SAT 95
[2024-10-17 16:05] VITALS: BMI 37.1
[2024-10-17 20:00] VITALS: BP 117/81; PULSE 64; RESP 18; TEMP 36.7; O2SAT 96
[2024-10-17] MEDS: BACLOFEN 10 MG TABLET PO (21:12)
[2024-10-18] VITALS: BP 103/66; PULSE 64; RESP 18; TEMP 36.4; O2SAT 94
[2024-10-18 04:00] VITALS: BP 110/63; PULSE 61; RESP 18; TEMP 37.1; O2SAT 95
[2024-10-18] MEDS: PIPER/TAZO INJ 3.375 GM in SODIUM CHLORIDE 0.9% (P) 50 ML IV ×2 (05:01→13:45)
[2024-10-18 05:39] LABS: Basophils # (Auto) 0.1 Thou/mm3 (0.0-0.2); Basophils % (Auto) 1 % (0-2.5); Eosinophils # (Auto) 0.3 Thou/mm3 (0.0-0.5); Eosinophils % (Auto) 4 % (0-10); Hematocrit 28.2 % (41.0-53.0); Hemoglobin 9.3 g/dL (13.5-16.0); Immature Granulocytes % (Auto) 6 % (0-0); Immature Granulocytes Auto 0.47 Thou/mm3 (0.00-0.00); Lymphocytes # (Auto) 2.3 Thou/mm3 (1.0-4.8); Lymphocytes % (Auto) 28 % (10-50); Mean Corpuscular Hemoglobin 29.5 pg (25.0-35.0); Mean Corpuscular Volume 90 fL (80-100); Monocytes # (Auto) 0.5 Thou/mm3 (0.0-0.8); Monocytes % (Auto) 6 % (0-12); Neutrophils # (Auto) 4.7 Thou/mm3 (1.8-7.7); Neutrophils % (Auto) 56 % (37-80); Nucleated Red Blood Cell % 0 /100 WBC (0); Platelet Count 366 Thou/mm3 (140-440); RDW Standard Deviation 46.7 fL (35.1-43.9); Red Blood Count 3.15 Miln/mm3 (4.50-5.90); White Blood Count 8.3 Thou/mm3 (3.8-10.6)
[2024-10-18 06:32] LABS: Alanine Aminotransferase 30 U/L (10-49); Albumin, Serum 3.8 gm/dL (3.5-5.0); Albumin/Globulin Ratio 1.3 (1.2-2.2); Alkaline Phosphatase 68 U/L (46-116); Anion Gap 11 (7-16); Aspartate Amino Transferase 32 U/L (0-34); BUN/Creatinine Ratio 11 Ratio (12-20); Bilirubin,Total 0.3 mg/dL (0.3-1.2); Blood Urea Nitrogen 19 mg/dL (9-23); Calcium 9.3 mg/dL (8.3-10.6); Calcium (Corrected) 9.5 mg/dL (8.5-10.1); Carbon Dioxide 23.5 mMol/L (20.0-31.0); Chloride 107 mMol/L (98-107); Creatinine (Component) 1.8 mg/dL (0.6-1.3); Estimated Creatinine Clearance 68.8 mL/min (>60); Globulin 2.9 gm/dL (2.3-3.5); Glucose 132 mg/dL (74-106); Osmolality,Calculated 285 (275-295); Potassium 3.3 mMol/L (3.4-5.1); Sodium 141 mMol/L (136-145); Total Protein 6.7 gm/dL (5.7-8.2); eGFR 44 See Note
[2024-10-18 08:00] VITALS: BP 106/52; PULSE 62; RESP 18; TEMP 36.1; O2SAT 96
[2024-10-18] MEDS: PANTOPRAZOLE 40 MG TABLET PO (08:56)
[2024-10-18] MEDS: POTASSIUM CHLORIDE 10% 20 MEQ/15 ML UDC 40 MEQ PO ×2 (08:56→10:17)
[2024-10-18] MEDS: PREGABALIN 75 MG CAPSULE 150 MG PO (08:56)
[2024-10-18] MEDS: FINASTERIDE 5 MG TABLET PO (08:56)
[2024-10-18] MEDS: HEPARIN SOD INJ 5000 UNIT/ML VIAL SC (08:57)
[2024-10-18] MEDS: ACETAMINOPHEN 325 MG TABLET 650 MG PO (10:16)
[2024-10-18] MEDS: BACLOFEN 10 MG TABLET PO (10:16)
--- NOTE | 2024-10-18 10:21 | PC.SS ---
SS follow up note; SS followed up with Samanta from [facility] in regards to auth. Samanta reported that at the time authorization was still pending.
[2024-10-18 12:00] VITALS: BP 122/79; PULSE 71; RESP 17; TEMP 36.3; O2SAT 97
--- NOTE | 2024-10-18 14:07 | PD.RESPRO ---
Documentation for date of: 10/18/24 Subjective Subjective Interval history: Patient seen and examined at bedside. No overnight events. Potassium 3.3 and was repleted with KCL 40+40mEq. Continue Zosyn 3.375mg TID for treatment of Pseudomonas UTI. Repeat EKG was resolved QT prolongation (420). Will discharge on oral levofloxacin. MRI cervical/lumbar spine was completed yesterday. Patient to follow up with neurosurgeon in [place]. Discharge back to [facility] is pending auth. Exam Vital Signs Temp Pulse Resp BP Pulse Ox O2 Del Method 97.3 F 71 17 122/79 97 Room Air 10/18/24 12:00 10/18/24 12:00 10/18/24 12:00 10/18/24 12:00 10/18/24 12:00 10/18/24 12:00 Narrative Exam General: obese, mddle age male, mild distress, cooperative HEENT: NCAT, No JVD noted. Mucosa moist. Pupils are equal and reactive to light bilaterally Cardiovascular: Normal S1 and S2. Regular rate and rhythm. Respiratory: Lungs are clear to auscultation bilaterally. No wheezing or crackles heard. Abdomen: Soft, nontender, normal bowel sounds. Distended : root in place, no discharge, no swelling Skin: Warm to touch, dry, B/L LE dermatitis Musculoskeletal: No gross injuries. Able to move all 4 extremities. +1 pitting edema Neuro: Alert and oriented x3. No focal neuro deficits. Psych: Normal affect and mood Objective Labs 10/18/24 05:00 10/18/24 05:00 Labs: Laboratory Results - last 24 hr 10/18/24 05:00 WBC 8.3 RBC 3.15 L Hgb 9.3 L Hct 28.2 L MCV 90 MCH 29.5 MCHC 33.0 RDW Std Deviation 46.7 H Plt Count 366 D Neut % (Auto) 56 Lymph % (Auto) 28 [place] % (Auto) 6 Eos % (Auto) 4 Baso % (Auto) 1 Neut # (Auto) 4.7 Lymph # (Auto) 2.3 [place] # (Auto) 0.5 Eos # (Auto) 0.3 Baso # (Auto) 0.1 Immature Gran # (Auto) 0.47 H Absolute Nucleated RBC 0.00 Immature Gran % 6 H Nucleated RBC % 0 Sodium 141 Potassium 3.3 L Chloride 107 Carbon Dioxide 23.5 Anion Gap 11 BUN 19 Creatinine 1.8 H Estim Creat Clear Calc 68.8 eGFR 44 L BUN/Creatinine Ratio 11 L Glucose 132 H Calculated Osmolality 285 Calcium 9.3 Corrected Calcium 9.5 Total Bilirubin 0.3 AST 32 ALT 30 Alkaline Phosphatase 68 Total Protein 6.7 Albumin 3.8 Globulin 2.9 Albumin/Globulin Ratio 1.3 Quality Measures Quality Measures none Assessment & Plan Assessment Current Active Medications: Generic Name Dose Route Start Last Admin Trade Name Freq PRN Reason Stop Dose Admin Acetaminophen 650 mg 10/13/24 14:56 10/14/24 14:54 Acetaminophen 325 Mg Tablet PO 11/12/24 14:55 650 mg Q6H PRN Administration Fever >101.5 Acetaminophen 650 mg 10/13/24 14:56 10/18/24 10:16 Acetaminophen 325 Mg Tablet PO 11/12/24 14:55 650 mg Q6H PRN Administration PAIN SCALE 1-3 (mild Baclofen 30 mg 10/18/24 21:00 Baclofen 10 Mg Tablet PO 11/17/24 20:59 HS LG Baclofen 10 mg 10/18/24 10:00 10/18/24 10:16 Baclofen 10 Mg Tablet PO 11/17/24 09:59 10 mg DAILY LG Administration Dextrose 25 ml 10/13/24 15:02 Dextrose 50%-Water Inj 50 Ml Syringe IV 11/12/24 15:01 Q15MIN PRN BG 50-70 responsive npo pt Docusate Sodium 100 mg 10/13/24 14:56 Docusate Sod 100 Mg Capsule PO 11/12/24 14:55 QDAY PRN CONSTIPATION Protocol Finasteride 5 mg 10/14/24 09:00 10/18/24 08:56 Finasteride 5 Mg Tablet PO 11/13/24 08:59 5 mg DAILY LG Administration Glucagon 1 mg 10/13/24 15:02 Glucagon Inj 1 Mg Vial IM Q15MIN PRN BG <70, and no IV access Heparin Sodium (Porcine) 5,000 unit 10/13/24 21:00 10/18/24 08:57 Heparin Sod Inj 5000 Unit/Ml Vial SC 10/27/24 20:59 5,000 unit Q12HR LG Administration Piperacillin Sod/Tazobactam 50 mls @ 12.5 mls/hr 10/16/24 15:15 10/18/24 13:45 Sod 3.375 gm/ Sodium Chloride IV 10/23/24 15:14 12.5 mls/hr Q8HR LG Administration Insulin Human Lispro 0 unit 10/13/24 17:00 10/18/24 12:21 Insulin Lispro (Admelog) 1 Unit/0.01 Ml Unit SC 11/12/24 16:59 Not Given AC LG Protocol Magnesium Hydroxide 30 ml 10/13/24 14:56 Milk Of Magnesia Susp 30 Ml Udc PO 11/12/24 14:55 QDAY PRN CONSTIPATION Protocol Ondansetron HCl 4 mg 10/13/24 14:56 Ondansetron Inj 2 Mg/Ml Inj 2 Ml IV 11/12/24 14:55 Q6H PRN NAUSEA OR VOMITING Protocol Pantoprazole Sodium 40 mg 10/14/24 09:00 10/18/24 08:56 Pantoprazole 40 Mg Tablet PO 11/13/24 08:59 40 mg DAILY LG Administration Pregabalin 150 mg 10/13/24 21:00 10/18/24 08:56 Pregabalin 75 Mg Capsule PO 11/12/24 20:59 150 mg BID LG Administration Simethicone 80 mg 10/16/24 11:00 10/16/24 20:36 Simethicone 80 Mg Chew PO 11/15/24 10:59 80 mg QID PRN Administration GAS Plan 54-year-old male with past medical history of hypertension, IDDM, CKD stage IIIb, lumbar spinal injury with chronic back pain and resulting in urinary incontinence (on chronic indwelling Root) and bowel incontinence, and anemia who was admitted to the hospital on 10/13/2024 due to bilateral pyelonephritis and complicated UTI. #Complicated Pseudomonas UTI Patient came in initially with complaints of chills and dysuria. Patient has chronic indwelling Root catheter since last discharge due to neurogenic bladder. UA was positive for bacteria and leukocytes esterase Abdomen/pelvis CT was positive for bilateral pyelonephritis and cystitis Blood cultures negative in the first 24 hours -urine culture + Pseudomonas -stopped IV levofloxacin due to QT prolongation -resumed Zosyn 3.375g TID (continue for 7 day course until 10/20) ? Continue Root catheter ? Will continue to monitor #Electrolyte imbalance -replete electrolytes as needed #Normocytic normochromic anemia Most likely dilutional ?Patient's baseline hemoglobin around 11 -daily CBC #Insulin dependent type 2 diabetes, poorly controlled On admission initial glucose 143. Last A1c 10.7 on 09/12/24. -Held home medications -Bedside blood glucose checks ACHS -Insulin lispro sliding scale -Carb consistent low diet #Hx of hypertension ?Patient's blood pressure has been under control during this hospital admission. ? Will hold off on antihypertensive medication for now #Hx of BPH ?Continue finasteride and tamsulosin #Hx of lumbar spine injury #Hx of urinary incontinence with indwelling Root catheter #Hx of bowel incontinence spine MRI that showed L5-S1 large, 10 mm, extruded central lumbar disc displacing the right and left S1 nerve roots and producing mild left L5 ganglionic compression. ?Continue baclofen and Lyrica ?Continue Root catheter, changed on hospital admission. -patient to follow up with Dr. Cervantes's clinic in [place] #Sepsis ruled out #Lactic acidosis, resolved #NAGMA-resolved #MILE on CKD stage IIIb-resolved #QT prolongation-resolved Disposition: dc pending SNF auth Diet: carb consistent low GI prophylaxis: protonix DVT prophylaxis: heparin sc Code: Full code The patient's management plan was discussed with my attending physician Dr. Norton and senior Dr. Hua. Elisabeth Melendrez, PGY-1 Attending Provider Attestation/Addendum I reviewed labs, imaging, EKG, home medications and prior available records. Face to face evaluation was performed by me. I have personally examined the patient and discussed assessment and plan with the IM team. I reviewed the resident note and agree with the plan with exceptions as below. Acute Pseudomonas UTI Urosepsis MILE on CKD Chronic Root catheter Leukocytosis Prolonged QTc Lower back pain in setting of lumbar spine injury Continue IV Zosyn Repeat EKG showed that QTc is within normal range. May switch to levofloxacin Trend WBC: Downtrending Monitor kidney function: Creatinine improved. Avoid nephrotoxins. Renally dosed medications Discussed with neurosurgery in [place]: Obtain spine MRI that showed L5-S1 large, 10 mm, extruded central lumbar disc displacing the right and left S1 nerve roots and producing mild left L5 ganglionic compression. He will need to follow-up with neurosurgery for surgical intervention Time spent is 40 minutes. More than 50% of the time was spent on patient education and coordination of care.
--- NOTE | 2024-10-18 15:14 | PC.SS ---
Addendum entered by Mira Lambert 10/18/24 16:10: SS follow up note; SS contacted [facility], they informed SS that [employer] was providing Transportation for 6PM. SS updated patient's nurse Robbie as well as Samanta from [facility]. Original Note: SS was contacted by Samanta from [facility] informing SS that authorization was obtained. set up transportation for patient through [facility], Reference # [id number]. SS contacted patient's mother, Renu as well as patient's nurse, Robbie. SS will meet with patient as well and inform him he will be discharging back to [facility] Today. SS will stand by for further needs.
--- NOTE | 2024-10-18 15:15 | ESDS_ITS ---
Planned Discharge Date 10/18/24 DS: Providers Provider Date of admission: 10/13/24 14:56 Primary care physician: Law Hollins MD Admitting Provider: Lalo Anderson DO Attending Provider on Admission: Lalo Anderson DO Consults: 10/14/24 11:34 Consult to Nephrology Routine Comment: Consulting Provider: Chantelle العلي 10/16/24 15:25 PT [Referral Physical Therapy] Routine Comment: Physician Instructions: Attending Provider on DC: Dimas Norton MD Discharging Provider: Dimas Norton MD DS: Diagnosis Problem List Completed Was Problem List Reviewed/Reconciled?: Yes Hospital Course Hospital Course Hospital course: Reason for hospitalization: Pseudomonas UTI Yoav Ram is 54 yr male with PMH of hypertension, insulin-dependent type 2 diabetes, CKD 3a, lumbar spinal injury, chronic back pain, BPH, urine incontinence/fecal incontinence with chronic Root, normocytic anemia who presented to ED on 10/13/24 due to chills, dysuria, pus around the Root catheter. Patient was admitted for Pseudomonas UTI and acute pyelonephritis. In ED, patient was tachycardic 120, fever 103, leukocytosis 14.9, Hb 11.6, CR 1.9. [employer] Dr. العلي was consulted. Her recommendations were to continue supportive treatment, IV antibiotics, and change Root catheter once a month at time of discharge. He was started on Zosyn 3.375 three times daily as initial EKG showed QT prolongation (513). During hospitalization, labs showed non-anion gap metabolic acidosis with a bicarb ranging 17?18. He was started on bicarb 650 mg daily with resolution few days later. In regards to patient's spinal injury, any intervention/evaluation for possible surgery has been on hold for some time due to inability of getting proper [facility] imaging. Therefore, patient's neurosurgeon Dr. Cervantes, in [place] was contacted. Patient was able to undergo MRI cervical/lumbar spine. Patient should reach out to clinic in [place] as they will need to request imaging reports. He will need to follow-up with neurosurgery for surgical intervention. Patient is now in stable condition and ready for discharge. Repeat EKG showed resolved prolonged QT. He will be discharged with levofloxacin course for two more day. Recommendations were given as below. Discharge Recommendations: Continue taking levofloxacin 750 mg daily for [address] Cervantes's clinic in [place] for neurosurgery workup. Patient should have Root catheter exchanged once a month. Follow-up with PCP in 1 to 2 weeks. Hospital Diagnoses: #Complicated Pseudomonas UTI #Electrolyte imbalance #QT prolongation #Normocytic normochromic anemia #Insulin dependent type 2 diabetes, poorly controlled #Hx of hypertension #Hx of BPH #Hx of lumbar spine injury #Hx of urinary incontinence with indwelling Root catheter #Hx of bowel incontinence #Sepsis ruled out #Lactic acidosis, resolved #NAGMA-resolved #MILE on CKD stage IIIb-resolved The patient's management plan was discussed with my attending physician Dr. Norton. Elisabeth Melendrez MD, PGY-1 Time Spent with Patient Time attestation: Total time spent providing and/or coordinating discharge services: Time spent: Greater than 30 minutes Exam Vital Signs Temp Pulse Resp BP Pulse Ox O2 Del Method 97.3 F 71 17 122/79 97 Room Air 10/18/24 12:00 10/18/24 12:10/18/24 12:00 10/18/24 12:00 10/18/24 12:10/18/24 12:00 Narrative Exam General: obese, mddle age male, cooperative HEENT: NCAT, No JVD noted. Mucosa moist. Pupils are equal and reactive to light bilaterally Cardiovascular: Normal S1 and S2. Regular rate and rhythm. Respiratory: Lungs are clear to auscultation bilaterally. No wheezing or crackles heard. Abdomen: Soft, nontender, normal bowel sounds. Distended : root in place, no discharge, no swelling Skin: Warm to touch, dry, B/L LE dermatitis Musculoskeletal: No gross injuries. Able to move all 4 extremities. No edema. Neuro: Alert and oriented x3. No focal neuro deficits. Psych: Normal affect and mood Discharge Plan Plan Patient Disposition: Xfer Skilled Nsg Fac (SNF) Patient condition on transfer: Stable Prescriptions/Referrals Prescriptions/Med Rec: New levofloxacin 750 mg tablet 750 mg PO QDAY 2 Days Qty: 2 0RF Continued finasteride 5 mg tablet 5 mg PO QDAY clonidine HCl 0.1 mg tablet 0.1 mg PO Q12HR PRN (Reason: HTN) losartan 100 mg tablet 100 mg PO QDAY potassium chloride 10 mEq tablet extended release 10 meq PO QDAY baclofen 10 mg tablet 20 mg PO HS baclofen 10 mg tablet 10 mg PO BID Rx Instructions: one tab in the morning and one tab in the afternoon insulin lispro 100 unit/mL insulin pen See Rx Instructions .ROUTE .COMPLEX Rx Instructions: Inject as per sliding scale: 0-150= 0 151-200= 2 units 201-250: 4 units 251-300= 6 units 301-350 = 8 units 351-400 = 10 units 401+ = 12 units. Administer dose and Notify ascorbic acid (vitamin C) [Vitamin C] 500 mg Tablet 500 mg PO TID ferrous sulfate 325 mg (65 mg iron) Tablet 325 mg PO QDAY Fleet Enema 19-7 gram/118 mL Enema 118 ml FL Q72H PRN (Reason: Constipation) acetaminophen 650 mg Tablet 650 mg PO Q6H PRN (Reason: Pain (Scale Score 1-3)) bisacodyl [Dulcolax (bisacodyl)] 10 mg Suppository 10 mg FL Q72H PRN (Reason: Constipation) docusate sodium 100 mg Capsule 100 mg PO BID Rx Instructions: HOLD FOR LOOSE STOOLS magnesium hydroxide [Milk of Magnesia] 400 mg/5 mL Suspension 30 ml PO Q72H PRN (Reason: Constipation) pantoprazole 40 mg tablet,delayed release (DR/EC) 40 mg PO QDAY pregabalin 75 mg capsule 150 mg PO BID tamsulosin [Flomax] 0.4 mg Capsule 0.8 mg PO QDAY 30 Days Qty: 0 0RF cholecalciferol (vitamin D3) 125 mcg (5,000 unit) tablet 125 mcg PO QDAY Discontinued ondansetron HCl 4 mg tablet 4 mg PO Q12H PRN (Reason: Nausea And Vomiting) metronidazole 250 mg tablet 250 mg PO TID Rx Instructions: 3 times a day for 5 days No Action methyl salicylate-menthol Cream 1 applic TOPICAL Q4H PRN (Reason: MUSCLE SPASMS) magnesium oxide [MagOx] 400 mg (241.3 mg magnesium) Tablet 400 mg PO BID Referrals: Law Hollins MD [Primary Care Provider] - Patient/Caregiver Discharge Instructions Other Discharge Activity Instructions:: Continue taking levofloxacin 750 mg daily for [address] Cervantes's clinic in [place] for neurosurgery workup. Patient should have Root catheter exchanged once a month. Follow-up with PCP in 1 to 2 weeks. Education Materials: ED Pyelonephritis, Male (Adult) Print Language: Welsh Stand Alone Forms: Caitie Award Info., Patient Portal Info Letter Discharge Order Discharge Orders: Discharge (Routine); Ordered 10/18/24 Ordered By: Elisabeth Melendrez Quality Discharge Quality Measures VTE prophylaxis Attestestation MD Attestation I reviewed labs, imaging, EKG, home medications and prior available records. Face to face evaluation was performed by me. I have personally examined the patient and discussed assessment and plan with the IM team. I reviewed the resident note and agree with the plan with exceptions as below. Acute Pseudomonas UTI Urosepsis MILE on CKD Chronic Root catheter Leukocytosis Prolonged QTc Lower back pain in setting of lumbar spine injury Repeat EKG showed that QTc is within normal range. Switch to levofloxacin Trend WBC: Downtrending Monitor kidney function: Creatinine improved. Avoid nephrotoxins. Renally dosed medications Discussed with neurosurgery in [place]: Obtain spine MRI that showed L5-S1 large, 10 mm, extruded central lumbar disc displacing the right and left S1 nerve roots and producing mild left L5 ganglionic compression. He will need to follow-up with neurosurgery for surgical intervention Patient is pending authorization to go back to [facility]
[2024-10-18 15:33] LABS: Band Neutrophils (Manual) 5 % (0-6); Basophils (Manual) 2 % (0-2); Eosinophils (Manual) 5 % (0-4); Lymphocytes (Manual) 36 % (20-44); Metamyelocytes (Manual) 2 % (0-0); Monocytes (Manual) 3 % (2-9); Myelocytes (Manual) 3 % (0-0); Neutrophils (Manual) 44 % (50-70)
[2024-10-18] MEDS: INSULIN LISPRO (AdmeLOG) 1 UNIT/0.01 ML UNIT SC (17:03)
[2024-10-18 18:25] VITALS: BP 133/77; PULSE 63; RESP 18; TEMP 36.4; O2SAT 97
--- NOTE | 2024-10-18 18:44 | PC.NURSE ---
Ambulance personnel picked up patient. Personal belongings and discharge packet given to patient. Additional packet printed and put in envelope for SNF nurse. CHF education given to patient. Notified SNF nurse of follow up with primary in 1 week and with neurosurgeon in [place]. Notified root catheter going with patient and needs to be changed every month per discharge orders.
--- NOTE | 2024-10-19 05:40 | ESPR_ITS ---
RE: SILVERIO VIRGEN : 1970 DATE OF SERVICE: 10/19/2024 Late entry for 10/18/2024. HISTORY OF PRESENT ILLNESS: Briefly, this patient is a 54-year-old - [place] gentleman with type 2 diabetes, hypertension, L5 ganglionic compression, and neurogenic bladder with stage IIIB chronic kidney disease secondary to obstructive uropathy, who was admitted for fever, tachypnea, and low blood pressures. The patient was found with cystitis. He was started on IV Rocephin 1 g daily. Creatinine upon admission was 2.5, which slowly improved to 1.8 today. He also underwent for lumbar spine MRI, which again revealed the L5 ganglionic compression. The patient also was noted for C3-C4 moderate bilateral neural foraminal stenosis, C4-C5 advanced left neural foraminal stenosis, and C6-C7 advanced bilateral neural foraminal stenosis as well. He is doing better and told me that he might be able to go home today. PHYSICAL EXAMINATION: General: He is awake and alert. Vital Signs: Blood pressure of 133/77 and heart rate of 53. HEENT: Anicteric sclerae. Normocephalic. Neck: Supple. JVD. Chest and Lungs: Symmetric expansion. Clear breath sounds. Cardiac: Without murmur. Abdomen: Soft and nontender. Extremities: No edema. LABORATORY DATA: Hemoglobin 9.3, WBC 8300, and platelet count 266,000. Sodium 141, potassium 3.3, chloride 107, CO2 of 23.5, BUN 19, creatinine 1.8, and glucose 132. ASSESSMENT: 1. Acute on chronic kidney disease, most likely secondary to hemodynamic instability, now improved. 2. Stage IIIB chronic kidney disease, secondary to neurogenic bladder. 3. Anemia of chronic kidney disease. 4. Urinary tract infection/cystitis. 5. Type 2 diabetes with neuropathy and nephropathy. 6. History of L5 ganglionic compression and C3-C6 advanced stenosis. 7. Hypertension, now resolved. PLAN: Kidney function has resolved. Acute kidney injury has resolved after hypertension was addressed. It is most likely secondary to hypoperfusion and hypotension due to low blood pressure that caused acute kidney injury. The patient will be seen again in my clinic in 2 months. DT: 05:08:39 TT: 05:39:00 Ref: [id number] - TID: [id number]
== END 2024-10-18 18:30 | disposition skilled nursing facility (03) | DRG 463 ==
LOC: SERX 14:46 → SERHOLD 15:09 → S3SX 10-15 07:40
PROVIDERS: Nurse Practitioner Family; Admitting Provider Student in an Organized Health Care Education/Training Program; Emergency Provider Emergency Medicine; PCP Family Medicine; Visit Provider Student in an Organized Health Care Education/Training Program
DX: N13.6 Pyonephrosis (principal); R15.9 Full incontinence of feces; N39.498 Other specified urinary incontinence; G89.29 Other chronic pain; N40.1 Benign prostatic hyperplasia with lower urinary tract symptoms; I12.9 Hypertensive chronic kidney disease with stage 1 through stage 4 chronic kidney disease, or unspecified chronic kidney disease; N18.4 Chronic kidney disease, stage 4 (severe); D63.1 Anemia in chronic kidney disease; N31.9 Neuromuscular dysfunction of bladder, unspecified; K59.00 Constipation, unspecified; E11.22 Type 2 diabetes mellitus with diabetic chronic kidney disease; E11.40 Type 2 diabetes mellitus with diabetic neuropathy, unspecified; E11.65 Type 2 diabetes mellitus with hyperglycemia; E87.20 Acidosis, unspecified; F40.240 Claustrophobia; R14.0 Abdominal distension (gaseous); E87.6 Hypokalemia; N17.9 Acute kidney failure, unspecified; I95.89 Other hypotension; I95.9 Hypotension, unspecified; M54.50 Low back pain, unspecified; B96.5 Pseudomonas (aeruginosa) (mallei) (pseudomallei) as the cause of diseases classified elsewhere; I47.20 Ventricular tachycardia, unspecified; E83.39 Other disorders of phosphorus metabolism; M48.061 Spinal stenosis, lumbar region without neurogenic claudication; M48.02 Spinal stenosis, cervical region; E83.42 Hypomagnesemia; S89.90XA Unspecified injury of unspecified lower leg, initial encounter; X50.1XXA Overexertion from prolonged static or awkward postures, initial encounter; Z79.4 Long term (current) use of insulin; Z79.899 Other long term (current) drug therapy; Z96.0 Presence of urogenital implants
CPT/HCPCS: 36415; 71045; 72141; 72148; 74018; 74176; 76770; 80048; 80053; 81001; 82436; 83605; 83615; 83690; 83735; 83880; 84100; 84133; 84145; 84300; 84484; 85025; 85610; 85730; 87040; 87077; 87081; 87086; 87186; 87400; 87811; 93005; 96361; 96365; 96366; 96367; 97161; 99285; J0696; J1643; J1815; J1956; J2543; J3475; J3480; J3490; J7030; J7050; A9270

== ENCOUNTER 2024-11-17 09:48 | Emergency (ER) | payer MEDICAID, SELFPAY ==
[2024-11-17] VITALS (9 sets, daily range): BP systolic 105–165; BP diastolic 68–92; PULSE 107–124; RESP 17–25; TEMP 36.4–39.2; O2SAT 95–98; BMI 41.8
--- NOTE | 2024-11-17 10:23 | PD.EDADULT ---
ED General RME/HPI General Chief complaint: General Adult/Misc Complain Stated complaint: LEG SPASMS/SHAKES Time Seen by Provider: 11/17/24 10:19 Arrival date/time: 11/17/24 09:48 RME / HPI RME / HPI narrative: DR. CURRY MAIN ED EVALUATION: 54 year old male with past medical history significant for hypertension, insulin-dependent type 2 diabetes, CKD 3a, lumbar spinal injury, chronic back pain, BPH, urine incontinence/fecal incontinence with chronic Roque, normocytic anemia presents to the Emergency Department [facility] with complaint of fever since 5 AM this morning. Associated chills and shakiness. Patient states he was supposed to get his Roque catheter changed on the 11/10 and still has not. Denies any nausea or vomiting. No cough, shortness of breath, chest pain, or other symptoms at this time. PCP: Dr. Santillan Train Controller: Dr. العلي Related Data Home Medications ?Medication ?Instructions ?Recorded ?Confirmed acetaminophen 650 mg tablet 650 mg PO Q6H PRN Pain (Scale 09/04/23 10/13/24 Score 1-3) bisacodyl 10 mg rectal suppository 10 mg MA Q72H PRN Constipation 09/04/23 10/13/24 (Dulcolax (bisacodyl)) magnesium oxide 400 mg (241.3 mg 400 mg PO BID 09/04/23 10/13/24 magnesium) tablet (MagOx) docusate sodium 100 mg capsule 100 mg PO BID 10/11/23 10/13/24 magnesium hydroxide 400 mg/5 mL 30 ml PO Q72H PRN Constipation 10/11/23 10/13/24 oral suspension (Milk of Magnesia) pantoprazole 40 mg tablet,delayed 40 mg PO QDAY 10/11/23 10/13/24 release pregabalin 75 mg capsule 150 mg PO BID 10/11/23 10/13/24 finasteride 5 mg tablet 5 mg PO QDAY 01/31/24 10/13/24 ascorbic acid (vitamin C) 500 mg 500 mg PO TID 09/12/24 10/13/24 tablet (Vitamin C) baclofen 10 mg tablet 10 mg PO BID 09/12/24 10/13/24 baclofen 10 mg tablet 20 mg PO HS 09/12/24 10/13/24 clonidine HCl 0.1 mg tablet 0.1 mg PO Q12HR PRN HTN 09/12/24 10/13/24 ferrous sulfate 325 mg (65 mg 325 mg PO QDAY 09/12/24 10/13/24 iron) tablet insulin lispro 100 unit/mL See Rx Instructions .Route .COMPLEX 09/12/24 10/13/24 subcutaneous pen losartan 100 mg tablet 100 mg PO QDAY 09/12/24 10/13/24 methyl salicylate-menthol topical 1 applic topical Q4H PRN MUSCLE 09/12/24 10/13/24 cream SPASMS potassium chloride 10 mEq 10 meq PO QDAY 09/12/24 10/13/24 tablet,extended release sodium phosphates 19 gram-7 118 ml MA Q72H PRN Constipation 09/12/24 10/13/24 gram/118 mL enema (Fleet Enema) cholecalciferol (vitamin D3) 125 125 mcg PO QDAY 10/13/24 10/13/24 mcg (5,000 unit) tablet Previous Rx's ?Medication ?Instructions ?Recorded tamsulosin 0.4 mg capsule (Flomax) 0.8 mg (2 x 0.4 mg) PO QDAY 30 10/14/23 days #0 caps cephalexin 500 mg capsule 500 mg PO QID #20 caps 11/17/24 Allergies Allergy/AdvReac Type Severity Reaction Status Date / Time No Known Allergies Allergy Verified 01/31/24 11:43 Review of Systems Review of Systems Systems Reviewed: All systems reviewed, normal except as documented Past Medical History Past Medical History CARDIAC: Positive Congenital Heart Disease and Hypertension MUSCULOSKELETAL: Positive Musculoskeletal Disorders ENDOCRINE: Positive Endocrine Disorders and Diabetes Mellitus Type 2 PSYCHO/SOCIAL: Positive Depression Social History SMOKING STATUS: Never smoker SUBSTANCE USE: marijuana, opiates and methamphetamine ALCOHOL: Never [employer]CC[employer]: [employer] ED Exam Narrative Physical exam: GENERAL APPEARANCE: AxOx4, generally well-appearing, no acute distress. Febrile. HEENT: NC, AT. MMM. EOMI, clear conjunctiva, oropharynx clear. NECK: Supple without lymphadenopathy. No stiffness or restricted ROM. HEART: Normal rate and regular rhythm, normal S1/S1, no m/r/g LUNGS: CTAB, moving air well. No crackles or wheezes are heard. ABDOMEN: Soft, nontender, nondistended with good bowel sounds heard. BACK: No midline C/T/L spine pain or deformity, No CVAT, no obvious deformity. EXTREMITIES: Without cyanosis, clubbing or edema. MUSCULOSKELETAL: FROM of all major joints, no chest tenderness NEUROLOGICAL: Grossly nonfocal. Alert and oriented. CN not formally tested but appear grossly intact. Skin: Warm and dry without any rash. Course Quality Measures none Orders Category Date Time Status Roque to [place] Routine Care 11/17/24 10:43 Ordered XR chest 1V Stat Exams 11/17/24 10:43 Completed Blood Culture (Lab) Stat Lab 11/17/24 10:52 Received CBC Stat Lab 11/17/24 10:52 Completed CMP [Comprehensive Metabolic Panel] Stat Lab 11/17/24 10:52 Completed Lactate (Lactic Acid) Stat Lab 11/17/24 10:52 Completed Procalcitonin Stat Lab 11/17/24 10:52 Completed Urinalysis Stat Lab 11/17/24 10:57 Completed Acetaminophen Tab [Tylenol Tab] Med 11/17/24 13:25 Discontinued 650 mg PO X1 ONE Ibuprofen Tab [Motrin Tab] Med 11/17/24 15:29 Discontinued 400 mg PO X1 ONE Sodium Chloride 0.9% 1000 ml [Ns] 1,000 ml Med 11/17/24 10:43 Discontinued IV 999 mls/hr Sodium Chloride 0.9% 1000 ml [Ns] 1,000 ml Med 11/17/24 12:22 Discontinued IV 999 mls/hr cefTRIAXone/D5w 1gm IV premix [Rocephin/D5w 1gm IV Med 11/17/24 12:30 Discontinued premix] 1 gm in 50 ml IV X1 Vital Signs Vital signs: Vital Signs Temperature 102.5 F H 11/17/24 09:55 Pulse Rate 107 H 11/17/24 09:55 Respiratory Rate 20 11/17/24 09:55 Blood Pressure 165/92 H 11/17/24 09:55 Pulse Oximetry (%) 96 11/17/24 09:55 Oxygen Delivery Method Room Air 11/17/24 09:55 [facility] Patient data External records reviewed:: [facility] previous records (Reviewed last admission discharge dated 10/18/24, patient admitted for the following: Pyelonephritis) and EMS form Clinical information provided by:: patient and EMS Social determinants that could affect healthcare access:: none Patient has the following chronic illnesses:: hypertension, insulin-dependent type 2 diabetes, CKD 3a, lumbar spinal injury, chronic back pain, BPH, urine incontinence/fecal incontinence with chronic Roque, normocytic anemia How is presenting disease/condition affected by chronic disease/condition?: exacerbated by Evaluation data The following diagnostics were reviewed and interpreted by me:: lab results and radiology exam(s) Lab and/or radiology exams considered but not ordered:: none Interpretation Summary: Patient has an UTI, will give rocephin and 2 L fluids. Chest x-ray: my interpretation shows no acute cardiopulmonary findings, no cardiomegaly, no bony abnormalities. Lactate and procalcitonin are normal. Creatine came back at 1.8, which is good considering the patient's baseline 1.8-2.2. RADIOLOGY Procedure(s): XR chest 1V Accession Number(s): [id number] cc: Sean Curry MD; Be Sinclair MD; Law Hollins MD~ Examination: AP chest single view Technique one AP portable semiupright chest single view Exam date and time: November 17, 2024 1007 hrs. Comparison October 13, 2024 Indications: Shortness of breath fever chills beginning 2 days ago. Findings: Normal heart size Reduced inspiratory effort. No pneumonia Impression: No pneumonia identified Dictated By: Be Sinclair MD Medications Medications considered but not ordered:: none Medication administrations:: Medication Administration History Discontinued Medications Acetaminophen (Acetaminophen 325 Mg Tablet) 650 mg PO X1 ONE Stop: 11/17/24 13:26 Last Admin: 11/17/24 13:38 Dose: 650 mg Documented By: GM Sodium Chloride (Ns) 1,000 mls @ 999 mls/hr IV .Q1H1M ONE Stop: 11/17/24 11:43 Last Infusion: 11/17/24 13:05 Dose: Infused Documented By: Admin: 11/17/24 11:19 Dose: 999 mls/hr Documented By: DD Sodium Chloride (Ns) 1,000 mls @ 999 mls/hr IV .Q1H1M ONE Stop: 11/17/24 13:22 Last Infusion: 11/17/24 14:52 Dose: Infused Documented By: Admin: 11/17/24 12:49 Dose: 999 mls/hr Documented By: BISI Ceftriaxone Sodium/Dextrose (Rocephin/D5w 1gm Iv Premix) 1 gm in 50 mls @ 100 mls/hr IV X1 ONE Stop: 11/17/24 12:59 Last Infusion: 11/17/24 13:37 Dose: Infused Documented By: Admin: 11/17/24 12:49 Dose: 100 mls/hr Documented By: GM Ibuprofen (Ibuprofen Tab 400 Mg Tablet) 400 mg PO X1 ONE Stop: 11/17/24 15:30 Last Admin: 11/17/24 16:13 Dose: 400 mg Documented By: DD see above if any Consultations Consultation(s) initiated? (list below): No Diagnosis Differential Diagnosis ED Complaint MDM: UTI, Roque catheter infection, sepsis, dehydration, viral illness Most likely diagnosis given after review of the tests above:: UTI Admission Indicated Admission indicated?: not indicated Explain why admission is indicated or not indicated:: Patient has no emergent abnormalities on his studies and can be managed on an outpatient basis. Admission Request Was there a request for admission?: No Disposition Plan Disposition Plan: Discharge Discharge Attestation Discharge Attestation: The patient and all family members were given an opportunity to ask questions and understood the discharge instructions. Discharge instructions specifically effects, indications for sooner follow up or return to the emergency department, and the expected course of current diagnosis. Patient condition: Stable Medical Decision Making MDM Narrative MDM Narrative: IAmnia am scribing for and in the presence of Dr. Curry. Differential Diagnosis Differential Diagnosis: UTI, Roque catheter infection, sepsis, dehydration, viral illness Lab Data 11/17/24 10:52 11/17/24 10:52 Labs: Lab Results 11/17/24 11/17/24 Range/Units 10:52 10:57 WBC 15.8 H (3.8-10.6) Thou/mm3 RBC 4.36 L (4.50-5.90) Miln/mm3 Hgb 12.7 L (13.5-16.0) g/dL Hct 38.8 L (41.0-53.0) % MCV 89 (80-100) fL MCH 29.1 (25.0-35.0) pg MCHC 32.7 (31.0-37.0) g/dl RDW Std Deviation 47.6 H (35.1-43.9) fL Plt Count 257 D (140-440) Thou/mm3 Neut % (Auto) 82 H (37-80) % Lymph % (Auto) 9 L (10-50) % Randall % (Auto) 6 (0-12) % Eos % (Auto) 1 (0-10) % Baso % (Auto) 0 (0-2.5) % Neut # (Auto) 12.9 H (1.8-7.7) Thou/mm3 Lymph # (Auto) 1.5 (1.0-4.8) Thou/mm3 Randall # (Auto) 1.0 H (0.0-0.8) Thou/mm3 Eos # (Auto) 0.2 (0.0-0.5) Thou/mm3 Baso # (Auto) 0.1 (0.0-0.2) Thou/mm3 Immature Gran # (Auto) 0.18 H (0.00-0.00) Thou/mm3 Absolute Nucleated RBC 0.00 (0.00-0.00) Thou/mm3 Immature Gran % 1 H (0-0) % Nucleated RBC % 0 (0) /100 WBC Sodium 137 (136-145) mMol/L Potassium 4.2 (3.4-5.1) mMol/L Chloride 101 (98-107) mMol/L Carbon Dioxide 27.4 (20.0-31.0) mMol/L Anion Gap 9 (7-16) BUN 16 (9-23) mg/dL Creatinine 1.8 H (0.6-1.3) mg/dL Estim Creat Clear Calc 71.1 (>60) mL/min eGFR 44 L (60 - ) See Note BUN/Creatinine Ratio 9 L (12-20) Ratio Glucose 224 H (74-106) mg/dL Calculated Osmolality 282 (275-295) Lactic Acid 2.0 (0.4-2.0) mMol/L Calcium 9.4 (8.3-10.6) mg/dL Corrected Calcium 9.4 (8.5-10.1) mg/dL Total Bilirubin 0.5 (0.3-1.2) mg/dL AST 13 (0-34) U/L ALT 36 (10-49) U/L Alkaline Phosphatase 99 (46-116) U/L Total Protein 7.6 (5.7-8.2) gm/dL Albumin 4.4 (3.5-5.0) gm/dL Globulin 3.2 (2.3-3.5) gm/dL Albumin/Globulin Ratio 1.4 (1.2-2.2) Procalcitonin 0.23 (0.0-0.49) ng/ml Ur Collection Type Catheter Urine Color Lt-Yellow (Lt Yel-Yel) Urine Clarity Turbid A (Clear/Hazy) Urine pH 6.5 (5.0-7.0) Ur Specific [place] 1.012 (1.001-1.035) Urine Protein 1+ A (Neg - Trace) Urine Glucose (UA) Trace (Negative) Urine Ketones Negative (Negative) Urine Blood 1+ A (Negative) Urine Nitrite Negative (Negative) Urine Bilirubin Negative (Negative) Urine Urobilinogen (Auto) Negative (0.0-1.0) mg/dL Ur Leukocyte Esterase Positive (Negative) Urine RBC 53 H (0-3) /hpf Urine WBC 423 H (0-5) /hpf Ur Squamous Epith Cells 0 (0-5) /hpf Ur Transition Epith Cell < 1 (0-5) /hpf Urine Bacteria None (None) Hyaline Casts < 1 (0-1) /hpf Discharge Plan Plan Patient Disposition: HOME (Self Care) Patient condition on transfer: Stable Prescriptions/Referrals Prescriptions/Med Rec: New cephalexin 500 mg capsule 500 mg PO QID Qty: 20 0RF No Action finasteride 5 mg tablet 5 mg PO QDAY clonidine HCl 0.1 mg tablet 0.1 mg PO Q12HR PRN (Reason: HTN) losartan 100 mg tablet 100 mg PO QDAY potassium chloride 10 mEq tablet extended release 10 meq PO QDAY baclofen 10 mg tablet 20 mg PO HS baclofen 10 mg tablet 10 mg PO BID Rx Instructions: one tab in the morning and one tab in the afternoon insulin lispro 100 unit/mL insulin pen See Rx Instructions .ROUTE .COMPLEX Rx Instructions: Inject as per sliding scale: 0-150= 0 151-200= 2 units 201-250: 4 units 251-300= 6 units 301-350 = 8 units 351-400 = 10 units 401+ = 12 units. Administer dose and Notify ascorbic acid (vitamin C) [Vitamin C] 500 mg Tablet 500 mg PO TID ferrous sulfate 325 mg (65 mg iron) Tablet 325 mg PO QDAY Fleet Enema 19-7 gram/118 mL Enema 118 ml MA Q72H PRN (Reason: Constipation) methyl salicylate-menthol Cream 1 applic TOPICAL Q4H PRN (Reason: MUSCLE SPASMS) acetaminophen 650 mg Tablet 650 mg PO Q6H PRN (Reason: Pain (Scale Score 1-3)) magnesium oxide [MagOx] 400 mg (241.3 mg magnesium) Tablet 400 mg PO BID bisacodyl [Dulcolax (bisacodyl)] 10 mg Suppository 10 mg MA Q72H PRN (Reason: Constipation) docusate sodium 100 mg Capsule 100 mg PO BID Rx Instructions: HOLD FOR LOOSE STOOLS magnesium hydroxide [Milk of Magnesia] 400 mg/5 mL Suspension 30 ml PO Q72H PRN (Reason: Constipation) pantoprazole 40 mg tablet,delayed release (DR/EC) 40 mg PO QDAY pregabalin 75 mg capsule 150 mg PO BID tamsulosin [Flomax] 0.4 mg Capsule 0.8 mg PO QDAY 30 Days Qty: 0 0RF cholecalciferol (vitamin D3) 125 mcg (5,000 unit) tablet 125 mcg PO QDAY Referrals: Law Hollins MD [Primary Care Provider] - In 1 week Problem List Clinical Impression: UTI (urinary tract infection) Patient/Caregiver Discharge Instructions Education Materials: ED Bladder Infection, Male (Adult) Additional Instructions: Take all medicines as prescribed. Drink plenty fluids, and is warranted to maintain good physical activity. Follow-up with your facility health provider in 2 to 3 days for recheck. You can return to the emergency department sooner symptoms worsen or if you notice any new, concerning issues. Print Language: Upper Sorbian Stand Alone Forms: Caitie Award Info., Patient Portal Info Letter
--- NOTE | 2024-11-17 10:43 | XR_ITS ---
Examination: AP chest single view Technique one AP portable semiupright chest single view Exam date and time: November 17, 2024 1007 hrs. Comparison October 13, 2024 Indications: Shortness of breath fever chills beginning 2 days ago. Findings: Normal heart size Reduced inspiratory effort. No pneumonia Impression: No pneumonia identified
[2024-11-17 11:01] LABS: Collection Type, Urine Catheter; Squamous Epithelial Cell,Urine 0 /hpf (0-5)
[2024-11-17 11:10] LABS: Basophils # (Auto) 0.1 Thou/mm3 (0.0-0.2); Basophils % (Auto) 0 % (0-2.5); Eosinophils # (Auto) 0.2 Thou/mm3 (0.0-0.5); Eosinophils % (Auto) 1 % (0-10); Hematocrit 38.8 % (41.0-53.0); Hemoglobin 12.7 g/dL (13.5-16.0); Immature Granulocytes % (Auto) 1 % (0-0); Immature Granulocytes Auto 0.18 Thou/mm3 (0.00-0.00); Lymphocytes # (Auto) 1.5 Thou/mm3 (1.0-4.8); Lymphocytes % (Auto) 9 % (10-50); Mean Corpuscular HGB Conc 32.7 g/dl (31.0-37.0); Mean Corpuscular Hemoglobin 29.1 pg (25.0-35.0); Mean Corpuscular Volume 89 fL (80-100); Monocytes % (Auto) 6 % (0-12); Neutrophils # (Auto) 12.9 Thou/mm3 (1.8-7.7); Neutrophils % (Auto) 82 % (37-80); Nucleated Red Blood Cell % 0 /100 WBC (0); Platelet Count 257 Thou/mm3 (140-440); RDW Standard Deviation 47.6 fL (35.1-43.9); Red Blood Count 4.36 Miln/mm3 (4.50-5.90); White Blood Count 15.8 Thou/mm3 (3.8-10.6)
[2024-11-17 11:19] LABS: Bilirubin,Urine Negative (Negative); Blood,Urine 1+ (Negative); Clarity,Urine Turbid (Clear/Hazy); Color,Urine Lt-Yellow (Lt Yel-Yel); Glucose, Urine Trace (Negative); Hyaline Casts,Urine < 1 /hpf (0-1); Ketones,Urine Negative (Negative); Leukocyte Esterase,Urine Positive (Negative); Nitrite,Urine Negative (Negative); PH,Urine 6.5 (5.0-7.0); Protein,Urine 1+ (Neg - Trace); RBC,Urine 53 /hpf (0-3); Specific Gravity,Urine 1.012 (1.001-1.035); Transitional Epi Cells,Urine < 1 /hpf (0-5); Urobilinogen,Urine Negative mg/dL (0.0-1.0); WBC,Urine 423 /hpf (0-5)
[2024-11-17] MEDS: SODIUM CHLORIDE 0.9% 1000 ML 1,000 ML 999 ML IV ×2 (11:19→12:49)
[2024-11-17 11:36] LABS: Alanine Aminotransferase 36 U/L (10-49); Albumin, Serum 4.4 gm/dL (3.5-5.0); Albumin/Globulin Ratio 1.4 (1.2-2.2); Alkaline Phosphatase 99 U/L (46-116); Anion Gap 9 (7-16); Aspartate Amino Transferase 13 U/L (0-34); BUN/Creatinine Ratio 9 Ratio (12-20); Bilirubin,Total 0.5 mg/dL (0.3-1.2); Blood Urea Nitrogen 16 mg/dL (9-23); Calcium 9.4 mg/dL (8.3-10.6); Calcium (Corrected) 9.4 mg/dL (8.5-10.1); Carbon Dioxide 27.4 mMol/L (20.0-31.0); Chloride 101 mMol/L (98-107); Creatinine (Component) 1.8 mg/dL (0.6-1.3); Estimated Creatinine Clearance 71.1 mL/min (>60); Globulin 3.2 gm/dL (2.3-3.5); Glucose 224 mg/dL (74-106); Osmolality,Calculated 282 (275-295); Potassium 4.2 mMol/L (3.4-5.1); Procalcitonin 0.23 ng/ml (0.0-0.49); Sodium 137 mMol/L (136-145); Total Protein 7.6 gm/dL (5.7-8.2); eGFR 44 See Note
[2024-11-17] MEDS: cefTRIAXone/D5w 1gm IV premix 1 GM/50 ML BAG IV (12:49)
[2024-11-17] MEDS: ACETAMINOPHEN 325 MG TABLET 650 MG PO (13:38)
[2024-11-17] MEDS: IBUPROFEN TAB 400 MG TABLET PO (16:13)
--- NOTE | 2024-11-17 16:26 | PC.CC ---
Carolyne APARICIO was consulted by SUNG Mercer regarding transportation back to [facility]. ASW made contact with [facility] [id number]
--- NOTE | 2024-11-17 20:58 | PC.NURSE ---
Report given to Hermila nurse at [facility].
== END 2024-11-17 22:15 | disposition home or self-care (01) ==
PROVIDERS: Emergency Provider Emergency Medicine; PCP Family Medicine
DX: N39.0 Urinary tract infection, site not specified (principal); N18.31 Chronic kidney disease, stage 3a; E11.22 Type 2 diabetes mellitus with diabetic chronic kidney disease; I12.9 Hypertensive chronic kidney disease with stage 1 through stage 4 chronic kidney disease, or unspecified chronic kidney disease; N40.1 Benign prostatic hyperplasia with lower urinary tract symptoms
CPT/HCPCS: 51702; 36415; 71045; 80053; 81001; 83605; 84145; 85025; 87040; 96361; 96365; 99284; J0696; J7030; A9270

== ENCOUNTER → 2025-01-15 | Outpatient (BNVA) | payer MEDICAID, SELFPAY | END | disposition home or self-care (01) | PROVIDERS: PCP Family Medicine; Referring Provider Family Medicine; Visit Provider Urology | DX: N40.1 Benign prostatic hyperplasia with lower urinary tract symptoms (principal); N13.8 Other obstructive and reflux uropathy; I13.0 Hypertensive heart and chronic kidney disease with heart failure and stage 1 through stage 4 chronic kidney disease, or unspecified chronic kidney disease; E11.22 Type 2 diabetes mellitus with diabetic chronic kidney disease; N18.9 Chronic kidney disease, unspecified; I50.22 Chronic systolic (congestive) heart failure; F32.9 Major depressive disorder, single episode, unspecified; E66.01 Morbid (severe) obesity due to excess calories; Z99.3 Dependence on wheelchair | CPT/HCPCS: 99212; G0463 ==